=== PATIENT | male | born 1975 | race Caucasian/White ===

== ENCOUNTER 2019-04-10 16:55 | Emergency (ER) | payer MEDICAID, SELFPAY ==
[2019-04-10 16:56] VITALS: BP 146/81; PULSE 125; RESP 18; TEMP 36.6; O2SAT 97; BMI 33.6
--- NOTE | 2019-04-10 17:10 | ED.DCSUM_ITS ---
- ER Visit Summary Date of Service: 04/10/19 Chief Complaint: Hallucinations, paranoid behavior History of Present Illness: The patient is a 43 M presenting per EMS for hallucinations. Police were called due to concern for patient's safety. He was found in poor living conditions. There were holes in the zhang. Patient stated that there are people in his zhang and he has been hearing people in his house. He denies suicidal or homicidal ideation. Admits to methamphetamine use today. Physical Examination: Vitals are stable. Patient is afebrile. Alert no acute distress. HEENT exam is unremarkable. Neck is supple. Lungs are clear and equal bilaterally. Heart is regular and tachycardic Abdomen is soft nontender nondistended. Extremities are unremarkable. Skin is warm and dry. No focal neurologic deficit. Paranoia, pressured speech Remainder of exam is unremarkable. Emergency Department Course and Treatment: CBC, chemistries unremarkable. Alcohol is negative. Patient's arrived to the ED. She also states that there have been people in their house. It is unclear if this is a shared delusion or if other people have actually been breaking into their house. She states this has been ongoing for 3 years. Patient and state there is no change in his symptoms today. He denies suicidal thoughts or homicidal ideation. Patient was seen by social work in the ED. She discussed with crisis and they are comfortable that the patient is not a threat to himself or others at this time and he does not qualify for inpatient treatment. They set him up for counseling appointment tomorrow. Advised signs and symptoms for which to return to the ED. Disposition: Discharge home Impression: Paranoid behavior This note was generated with [employer] dictation software. It may contain incorrect words, spelling, and punctuation that were not noted in review of the chart prior to signing ED Disposition - Plan for ED Patient: Instructions: Understanding Methamphetamine Abuse and Addiction Referrals: Counseling,Center [GROUP OF PHYSICIANS] - Kerry Salter NP-C [Primary Care Provider] -
[2019-04-10 17:34] LABS: Absolute Lymphocyte Count 0.95 X10^3/uL (0.83-4.51); Absolute Neutrophil Count 6.4 X10^3/uL (2.0-7.7); Basophil# 0.04 X10^3/uL; Basophil% 0.5 % (0-1); Eosinophil# 0.27 X10^3/uL; Eosinophils% 3.2 % (0-5); Hemoglobin 12.3 g/dL (13.0-16.5); Lymphocyte # 0.95 X10^3/ul (4.0); Lymphocyte % 11.2 % (19-41); Mean Corp Hgb Conc 33.2 g/dL (32-36); Mean Corpuscular Hgb 28.3 pg (27.0-32.0); Mean Corpuscular Volume 85.1 fL (80-94); Mean Platelet Vol. 10.9 fl (6.2-12.0); Monocyte# 0.81 X10^3/uL; Monocyte% 9.5 % (0-10); NRBC Flagged by Analyzer 0 % (0-5); Neutrophil # 6.41 X10^3/uL (2.7-7.7); Neutrophil % 75.2 % (47-70); POSITIVE COUNT YES; RBC Distribution Width CV 11.6 % (11.6-14.6); RBC Distribution Width SD 35.8 fl (35.1-43.9); Red Blood Count 4.35 M/mm3 (4.6-6.2); White Blood Count 8.5 K/mm3 (4.4-11.0)
[2019-04-10 17:44] LABS: Differential Indicated SCAN CRITERIA MET
[2019-04-10 17:48] LABS: Anion Gap 6 (5-15); BUN 12 mg/dL (7-18); BUN/Creat Ratio 10.6 RATIO (10-20); Calcium,Total 8.8 mg/dL (8.5-10.1); Chloride 111 mmol/L (98-107); Creatinine, Serum 1.13 mg/dL (0.70-1.30); EST Glomerular Filtration Rate 76 mL/min (>60); Est Glom Filt Rate - Afr Amer 91 mL/min (>60); Estimated Creatinine Clearance 96.24 ml/min; Glucose 112 mg/dL (74-106); Potassium 3.5 mmol/L (3.5-5.1); Sodium Level 144 mmol/L (136-145)
[2019-04-10 18:08] LABS: Alcohol, Blood (Medical)-Serum < 3.0 mg/dL
[2019-04-10 18:11] LABS: Platelet Estimate ADEQUATE (ADEQ)
[2019-04-10 18:12] LABS: Red Cell Morphology NORM C+C NORMAL (NORM C&C)
--- NOTE | 2019-04-10 18:14 | CM.ED ---
Social Work Referral: Mental Health Informant: Dr. Francois Chief Complaint: there is a man in my house. Marital/Social History: In a dating relationship with Pat Abdi for the past 5 years. Patient is to another women but has not gotten the paperwork in. Patient stating to be working towards a divorce. Living Situation: Lives with significant other, Pat in Pat's home. Support/Resources: Pat is patient main support. History: None Education/Employment History: Unemployed. Patient stating to have stopped working due to the voices in the house. Patient stating to need to stay home to protect Pat. Mental Health Treatment/History: Denies any mental health history. Abuse Issues: Denies Substance Abuse Hx: States to have been sober for the past 3 years but to have used Meth today. Patient stating to smoke THC daily more then cigarettes. Mental Status Exam: A&Ox3 Appearance/General Behavior: Clean. Agitated. Mood/Affect: Frustrated with police for bringing patient to the ED and frustrated with the man in the house. Communication Pattern: Responds to questions. Thought Process: Stating to know there is someone in the house. Patient stating to have been dealing with this for the past 3 years. Risk to Self/Others: Patient denies any SI or HI. Patient denies any history of suicidal or homicidal thoughts. Assessment: Met with patient and patient significant other in room. Introduced self as well as manager social work role. Patient wanting significant other to stay in room during conversation. Patient and patient significant other both stating to hear voices in the home for the pat 3 years. Patient significant other, Pat stating to have a diagnosis of Bi-polar. Pat stating that the police think that Pat is making the voices and leaving evidence. Pat stating to clean a room in their home and to come back and it is always messed up again. Pat stating I know the voices are real, I am a witch. Patient stating to know the voices are there as well. Patient stating to have contacted the police on multiple occasions to come and look through the home. Patient stating that the police does not see the man. Patient stating to feel safe at home when Pat is there and that Pat and the patient do not go anywhere without each other. Patient denies any history of counseling and is open to meeting with a counselor. This manager social work encouraging patient to meet with a counselor as this could help patient work through what has been going on for patient over the past 3 years. Pat stating I will make sure he gets there. Patient tearful throughout conversation. Collaborating with Dr. Francois and radiation therapy technologist kiln worker, Marry. Plan is for patient to discharge to home with a crisis follow up appointment for tomorrow as the voices and seeing the man appear to be an on going thing and not an acute problem. Crisis appointment set up for 04/11/19 @ 11:00am. Patient is agreeable to this time and date. Patient provided with appointment reminder as well as recourse for other mental health supports/options, crisis hotline, and information on [facility] for substance abuse assistance. PLAN: Discharge to home with significant other with crisis follow-up. Faviola OG, MIGUEL ANGEL
--- NOTE | 2019-04-10 18:29 | ED.DEP ---
ED Disposition - Plan for ED Patient: Instructions: Understanding Methamphetamine Abuse and Addiction Referrals: Kerry Salter, PEDRO-C [Primary Care Provider] - Counseling,Center [GROUP OF PHYSICIANS] -
[2019-04-10 19:04] VITALS: RESP 18
== END 2019-04-10 19:05 | disposition home or self-care (01) ==
LOC: ED 18:26
PROVIDERS: Emergency Provider Emergency Medicine; Family Provider Nurse Practitioner Family; PCP Nurse Practitioner Family
DX: F22 Delusional disorders (principal); Z72.0 Tobacco use
CPT/HCPCS: 80048; 80320; 85025; 99284; G0480

== ENCOUNTER → 2019-05-10 16:55 | Outpatient (CLI) | payer MEDICAID, SELFPAY ==
[2019-04-10 16:56] VITALS: BMI 33.6
--- NOTE | 2019-05-10 17:52 | MRI_ITS ---
STUDY: MRI BRAIN WITH AND WITHOUT CONTRAST REASON FOR EXAM: Male, 43 years old. Visual and auditory hallucinations. TECHNIQUE: Standardized multiplanar fat and water weighted pulse sequences were obtained. 23ML DOTAREM IV was administered for the contrast portion of the examination. COMPARISON: CT head without contrast 01/28/2016. FINDINGS: No restricted diffusion to suspect acute or subacute ischemic infarct. Normal size of the ventricles and extra-axial spaces for the patient''s age. Few small subcortical white matter T2 FLAIR hyperintensity foci in both cerebral hemispheres are nonspecific. No mass effects and no midline shift. Normal bilateral basal ganglia. Normal thalami. There is no extra-axial fluid accumulation. Normal flow voids within the major intracranial circulation suggesting patency by spin echo criteria. Normal venous enhancement. There is no enhancing intra-axial or extra-axial abnormality. Normal sella turcica, pituitary gland, infundibular stalk, optic chiasm and hypothalamus. Normal tectal plate and pineal gland. Normal midbrain, eveline and medulla. Normal cerebellum. Normal basal cisterns. Normal bilateral temporal bones. Normal bilateral internal auditory canals. No demonstrated orbital abnormality, within the constraints of a routine brain study. Normal visualized paranasal sinuses. Normal calvarium and skull base. Normal visualized soft tissue structures. Normal visualized upper cervical spine. MRI/Brain W/WO Contrast IMPRESSION: 1. No MRI evidence of acute or subacute ischemic infarct, intracranial mass or acute intracranial abnormality. 2. No abnormal enhancing lesions extra-axially and intraaxially. 3. Nonspecific subcortical white matter T2 FLAIR hyperintensity foci in both cerebral hemispheres. Possibilities include migraine related changes, reversible cerebrovascular constrictive syndrome, microvascular disease and vasculitis. Electronically Signed: Alonzo Deleon MD at 16:18 EST , Service support ,
== END ==
PROVIDERS: Family Provider Nurse Practitioner Family; PCP Nurse Practitioner Family; Referring Provider Nurse Practitioner Family; Visit Provider Nurse Practitioner Family
DX: G23.8 Other specified degenerative diseases of basal ganglia (principal); R44.3 Hallucinations, unspecified
CPT/HCPCS: 70553; A9575

== ENCOUNTER 2019-11-10 09:57 | Emergency (ER) | payer MEDICAID, SELFPAY ==
[2019-11-10 09:58] VITALS: BP 135/90; PULSE 106; RESP 17; TEMP 36.1; O2SAT 97; BMI 37.2
--- NOTE | 2019-11-10 10:10 | CT_ITS ---
STUDY: CT ABDOMEN AND PELVIS WITHOUT CONTRAST REASON FOR EXAM: Male, 43 years old. LOW ABD PAIN X 1 MON, GROIN PAIN, CHANGE IN ERECTION, HTN, GERD RADIATION DOSAGE (If Supplied By Facility): CTDIvol = ( 22.87 ) mGy, DLP = ( 1285.79 ) mGycm TECHNIQUE: Transaxial images were obtained from the dome of the diaphragm to the symphysis pubis without oral contrast, and without intravenous contrast. Sagittal and coronal images were reconstructed. Individualized dose optimization techniques were used for this CT. COMPARISON: None. FINDINGS: The visualized lung bases are unremarkable. The visualized portions of the heart are within normal limits. Normal liver. The gallbladder is contracted. Normal spleen. Normal pancreas. Normal bilateral adrenal glands. Normal right kidney. Normal left kidney. No stones or hydronephrosis. Normal visualized stomach. Normal small intestine. There are multiple colonic diverticula consistent with diverticulosis. The appendix is visualized and appears normal. There is atherosclerotic calcification of the abdominal aorta, without a demonstrated aneurysm. Normal inferior vena cava. Normal retroperitoneum. Normal urinary bladder. There are prostatic calcifications. There is no free fluid in the abdomen or pelvis. There are mildly enlarged inguinal lymph nodes. There are diffuse degenerative changes of the visualized lumbar spine. CT/Abdomen/Pelvis without Cont IMPRESSION: Colonic diverticulosis. No obstruction or abscess. Contracted gallbladder. No biliary dilatation. Electronically Signed: Herberth Foy MD at 11:51 EDT , Service support ,
--- NOTE | 2019-11-10 10:16 | ED.DCSUM_ITS ---
- ER Visit Summary Date of Service: 11/10/19 Chief Complaint: [Abdominal pain] History of Present Illness: The patient is a 43 M presents to the emergency benjamín pain that has had off and on for about a month. Patient states that it was not severe until a couple of days ago. Patient states that the pain is lower abdomen and radiates to the testicles. He has had nausea. Has had intermittent vomiting. He denies any fevers. He denies urinary symptoms. He denies any diarrhea. He has no significant medical history other than some hypertension and GERD. No prior surgical history.] Physical Examination: [HEENT-PERRLA, EOMI. Cranial nerves II through XII grossly intact. TMs clear. Mucous membranes moist. No adenopathy. Cardiovascular-regular rate and rhythm without murmur or ectopy Lungs-clear to auscultation, chest wall stable without crepitus or subcu emphysema Abdomen-normoactive bowel sounds, soft. Patient has some mild diffuse tenderness to palpation to the lower abdomen. No rebound, rigidity, or peritoneal signs noted. No obvious hernias noted. exam-uncircumcised male. No significant tenderness to the testicles or the epididymides bilaterally. Normal cremasteric reflex. No hernias palpated. Extremities-intact ?4, normal range of motion, normal pulses, atraumatic] Test Results: [CBC with differential was normal. Chemistries unremarkable. Urinalysis unremarkable. CT flank showed diverticulosis otherwise nothing ac rogelio. Patient also had some calcifications within the prostate.] Emergency Department Course and Treatment: [Patient did have some minimal discomfort over the epididymis especially on the right. He states he has had similar pain in the past. I will treat him with antibiotics for a week to see if that does not resolve his issue. Patient also will be referred to urology for follow-up.] Treatment Plan: [Patient will be treated with Bactrim for a week] Disposition: [Discharged home in stable condition. Patient advised to return if worsening pain, fever, vomiting, or condition should worsen anyway.] Impression: [Abdominal pain-etiology uncertain] This note was generated with [employer] software. It may contain incorrect words, spelling, and punctuation that were not noted in review of the chart prior to signing ED Disposition - Plan for ED Patient: Referrals: Gaetano,Kerry, LOAN PROCESSING SUPERVISOR-C [Primary Care Provider] -
[2019-11-10 10:18] LABS: Mucous, Urine 0 SEEN /hpf (<or=2+); Red Blood Cells-Urine 0 SEEN /hpf (0-5); Squamous Epithelial Cells - UA 0 SEEN /hpf (0-5)
[2019-11-10] MEDS: Ondansetron 4 MG/2 ML Vial IV (10:34)
[2019-11-10] MEDS: Ketorolac 30 MG/ML Syringe IV (10:34)
[2019-11-10 10:40] LABS: Absolute Lymphocyte Count 1.42 X10^3/uL (0.83-4.51); Absolute Neutrophil Count 4.4 X10^3/uL (2.0-7.7); Basophil# 0.04 X10^3/uL; Basophil% 0.6 % (0-1); Eosinophils% 4.2 % (0-5); Hematocrit 39.1 % (40-54); Hemoglobin 12.7 g/dL (13.0-16.5); Lymphocyte # 1.42 X10^3/ul (4.0); Lymphocyte % 20.1 % (19-41); Mean Corp Hgb Conc 32.5 g/dL (32-36); Mean Corpuscular Hgb 27.7 pg (27.0-32.0); Mean Corpuscular Volume 85.2 fL (80-94); Mean Platelet Vol. 11.1 fl (6.2-12.0); Monocyte# 0.87 X10^3/uL; Monocyte% 12.3 % (0-10); NRBC Flagged by Analyzer 0 % (0-5); Neutrophil # 4.42 X10^3/uL (2.7-7.7); Neutrophil % 62.5 % (47-70); Platelet Count 235 K/mm3 (150-450); RBC Distribution Width CV 15.1 % (11.6-14.6); Red Blood Count 4.59 M/mm3 (4.6-6.2); White Blood Count 7.1 K/mm3 (4.4-11.0)
[2019-11-10] MEDS: 0.9% Normal Saline 1,000 ML 125 ML IV (10:41)
[2019-11-10 10:46] LABS: Color, Urine Yellow (Yellow); Glucose, Dipstick Normal (Normal); Ketone-Dipstick 5 mg/dl (Negative); Leukocyte Esterase-Dipstick 25 /ul (Negative); Nitrite-Dipstick Negative (Negative); Occult Blood-Urine Negative /ul (Negative); Protein-Dipstick 15 mg/dl (Negative); Specific Gravity, Urine 1.015 (1.002-1.030); Urine Bilirubin Dipstick 1 mg/dL (Negative); Urine Clarity Clear (Clear); Urine Urobilinogen 1 mg/dl (Normal)
[2019-11-10 10:54] LABS: White Blood Cells 0-5 SEEN /hpf (0-5)
[2019-11-10 10:55] LABS: Bacteria 1+ /hpf (None Seen)
[2019-11-10 11:05] LABS: Anion Gap 5 (5-15); BUN 19 mg/dL (7-18); BUN/Creat Ratio 18.6 RATIO (10-20); Calcium,Total 8.5 mg/dL (8.5-10.1); Chloride 107 mmol/L (98-107); Creatinine, Serum 1.02 mg/dL (0.70-1.30); EST Glomerular Filtration Rate 85 mL/min (>60); Est Glom Filt Rate - Afr Amer 103 mL/min (>60); Estimated Creatinine Clearance 103.55 ml/min; Glucose 164 mg/dL (74-106); Potassium 4.5 mmol/L (3.5-5.1); Sodium Level 138 mmol/L (136-145)
--- NOTE | 2019-11-10 11:35 | ED.RN ---
PT IS CURRENTLY NOT REQUESTING PAIN MEDICINES.
--- NOTE | 2019-11-10 11:56 | ED.DEP ---
ED Disposition - Plan for ED Patient: Instructions: ED Unknown Causes of Abdominal Pain Male Prescriptions: Smz/Tmp Ds [Bactrim Ds] 1 tab PO BID #14 tab Prescription Printed Referrals: Kerry Salter NP-C [Primary Care Provider] - Luis Mireles MD [STAFF PHYSICIAN] - 5-7 Days
[2019-11-10 12:07] VITALS: BP 116/77; PULSE 74; RESP 16; O2SAT 96
--- NOTE | 2019-11-10 12:08 | ED.RN ---
REVIEWED D/C INSTRUCTIONS, FOLLOW UP CARE, PRESCRIPTION, AND S/S THAT WOULD WARRANT A RETURN TO THE ED WITH PT. PT VERBALIZED AN UNDERSTANDING AND DENIES FURTHER QUESTIONS FOR THIS RN. PT SKIN P/W/D, RESP EVEN AND UNLABORED, PT A&O X 3, NO DISTRESS NOTED. PT AMBULATED OUT OF ED, GAIT STEADY.
== END 2019-11-10 12:10 | disposition home or self-care (01) ==
LOC: ED 11:06
PROVIDERS: Emergency Provider Emergency Medicine; PCP Nurse Practitioner Family
DX: R10.30 Lower abdominal pain, unspecified (principal); F17.200 Nicotine dependence, unspecified, uncomplicated; I10 Essential (primary) hypertension; K21.9 Gastro-esophageal reflux disease without esophagitis
CPT/HCPCS: 74176; 80048; 81001; 85025; 96361; 96374; 96375; 99285; J7030; A4216; J2405

== ENCOUNTER 2019-12-05 10:44 | Emergency (ER) | payer MEDICAID, SELFPAY ==
[2019-12-05 10:45] VITALS: BP 141/91; PULSE 945; RESP 19; TEMP 36.8; O2SAT 97; BMI 39.3
--- NOTE | 2019-12-05 11:14 | EKG12_ITS ---
Test Reason : SOB Blood Pressure : / mmHG Vent. Rate : 081 BPM Atrial Rate : 081 BPM P-R Int : 146 ms QRS Dur : 106 ms QT Int : 386 ms P-R-T Axes : 054 005 146 degrees QTc Int : 448 ms Normal sinus rhythm Left ventricular hypertrophy with repolarization abnormality Abnormal ECG Confirmed by VELASQUEZ MOY ([id number]), assistant film editor LONNY HERCULES ([id number]) on 12/06/2019 11:57:24 AM Referred By: BRENDEN Confirmed By:VELASQUEZ MOY
--- NOTE | 2019-12-05 11:21 | ED.VIS.GEN ---
History of Present Illness Chief Complaint: Shortness of Breath Narrative: Patient is a 44-year-old male with a past medical history of hypertension who presents to the emergency department for shortness of breath and generalized swelling. States that this all occurred over the past 3 days. His swelling has been getting worse. Has not tried anything for this. Denies ever having these symptoms before in the past. The swelling he feels like is over his upper extremities, lower extremities. He denies any associated chest pain with the shortness of breath. He does not know any aggravating factors. Exertion does not aggravate this. He denies any history of heart attacks, strokes or DVT/PE. He believes that he has been having a cold. Denies any fevers or chills. Has had a mild nonproductive cough. Is a current everyday smoker. Former IV drug abuser. Quit drinking 6 years ago. States that he has had liver issues before in the past. Denying any urinary symptoms except frequency. He denies any diarrhea or constipation. No abdominal pain. No pain in his calves. No recent prolonged period of immobilization. No recent surgeries. Past Medical History - Allergies and Home Meds Allergies/Adverse Reactions: Allergies promethazine [From Phenergan] Allergy (Verified 12/05/19 10:44) Rash Penicillins Adverse Reaction (Verified 12/05/19 10:44) Upset Stomach Primary Care Physician: Virgilio Clayton MD [NON-STAFF] - 1 Day Kerry Salter NP-C [Primary Care Provider] - Smoking Status: Light Smoker (<10/day) Review of Systems All systems negative except as indicated General: Denies: Chills, Fever, Sweats Eyes: Denies: Visual changes - bilaterally, Diplopia ENT: Denies: Rhinorrhea, Sore throat Cardiovascular: Denies: Chest pain, Palpitations Respiratory: Reports: Dyspnea, Cough. Denies: Sputum, Dyspnea on exertion, Orthopnea Gastrointestinal: Denies: Abdominal pain, Nausea, Vomiting, Diarrhea, Melena, Hematochezia Musculoskeletal: Reports: Swelling - Diffuse, nonspecific. Denies: Back pain, Extremity Pain Skin: Denies: Rash, Wounds Neurological: Denies: Headache, Weakness, Numbness Endocrine: Reports: Polyuria Allergy: Denies: Swelling of the mouth, Swelling of the tongue Physical Exam Vital Signs/Narrative: Vital Signs Temp Pulse Resp BP Pulse Ox 12/05/19 10:45 98.3 F 945 H 19 H 141/91 H 97 General: Well nourished, Well developed, No Acute Distress Head: Normocephalic, Atraumatic Eyes: Perrl, EOMI ENT: Moist mucous membranes, No rhinorrhea Neck: Supple, Nontender Cardiovascular: Regular rate, Regular rhythm, No murmurs Respiratory: No distress, CTA bilaterally, Chest nontender Abdomen: Soft, Nontender, Nondistended, Normal bowel sounds Back: Nontender, Normal Inspection Extremities: Nontender, Edema - Patient does not have any pitting edema noted on physical exam. No significant swelling appreciated. Does feel like his skin is tight although I do not see any tight compartments. Skin: Normal color, No rash Neurological: Alert, Oriented x3, Cranial nerves II-XII grossly intact, Normal Strength, Normal Sensation Psychological: Normal affect, Normal Mood Diagnostic/Tx/Re-eval - EKG Initial EKG Interpretation: Sinus Rhythm - EKG has a rate of 81 bpm and normal sinus rhythm. Normal intervals. Normal axis. No ST elevations or depressions appreciated. No T wave abnormalities. No prior EKG for comparison., No Acute Injury Pattern Prior: No Prior - Medical Decision Making Patient presents to the emerge department for diffuse swelling. I did not appreciate any significant edema with the patient. He was having some dyspnea. Chest x-ray, EKG and cardiac work-up performed which did not reveal any significant acute abnormality. X-rays not show any evidence of significant pulmonary vascular congestion or pleural effusions. No evidence of consolidation. His liver enzymes are elevated. I did discuss this with the patient he states that they have been in the 500s before. Upon reviewing his medical record he does have hepatitis. His albumin is low which I believe is continue to a sensation of the edema. He does not currently follow with a GI doctor and I will make a referral for 1. He needs to make an appointment as soon as possible. Have a CT scan of his abdomen which was performed less than 1 month ago. He is not having any abdominal pain I do not think he needs a repeat scan at this time. Otherwise patient does feel comfortable going home at this time. Warning signs and symptoms for which to return to the emerge department were reviewed with him developing any worsening shortness of breath or developing any systemic symptoms including any fever/chills. He understands and is agreeable with this plan. ED Disposition - Plan for ED Patient: Disposition: Home or Assisted Living Diagnosis: Transaminitis, Hypoalbuminemia, Dyspnea Instructions: Common Tests for Liver Disease, ED Dyspnea Referrals: Kerry Salter NP-C [Primary Care Provider] - Virgilio Clayton MD [NON-STAFF] - 1 Day
[2019-12-05 11:24] VITALS: O2SAT 100
--- NOTE | 2019-12-05 11:30 | RAD_ITS ---
STUDY: X-RAY CHEST REASON FOR EXAM: Male, 44 years old. SOB WITH SWELLING TECHNIQUE: PA and lateral views of the chest. COMPARISON: Comparison is made with prior study dated January 15, 2016. FINDINGS: EKG electrodes are seen. The lungs are clear and expanded. There is no demonstrated pleural abnormality. Normal size heart. Normal mediastinum and brent. Normal visualized pulmonary arteries. Normal visualized aortic arch and descending thoracic aorta. There are diffuse degenerative changes of the visualized thoracic spine. Normal visualized ribs, clavicles, and shoulders. There is no demonstrated abnormality of the visualized soft tissue structures of the upper abdomen. RAD/Chest PA and Lateral IMPRESSION: No acute abnormality is seen. Electronically Signed: Umer Davis, at 12:16 EDT , Service support ,
[2019-12-05 11:37] LABS: Absolute Neutrophil Count 4.7 X10^3/uL (2.0-7.7); Basophil# 0.03 X10^3/uL; Basophil% 0.4 % (0-1); Eosinophil# 0.41 X10^3/uL; Eosinophils% 5.9 % (0-5); Hematocrit 36.2 % (40-54); Hemoglobin 11.4 g/dL (13.0-16.5); Lymphocyte % 12.9 % (19-41); Mean Corp Hgb Conc 31.5 g/dL (32-36); Mean Corpuscular Hgb 28.5 pg (27.0-32.0); Mean Corpuscular Volume 90.5 fL (80-94); Mean Platelet Vol. 10.2 fl (6.2-12.0); Monocyte# 0.88 X10^3/uL; Monocyte% 12.7 % (0-10); NRBC Flagged by Analyzer 0 % (0-5); Neutrophil # 4.69 X10^3/uL (2.7-7.7); Neutrophil % 67.5 % (47-70); Platelet Count 219 K/mm3 (150-450); RBC Distribution Width CV 13.1 % (11.6-14.6); RBC Distribution Width SD 42.7 fl (35.1-43.9)
[2019-12-05 11:42] LABS: Bacteria 0 SEEN /hpf (None Seen); Mucous, Urine 0 SEEN /hpf (<or=2+); Red Blood Cells-Urine 0 SEEN /hpf (0-5); White Blood Cells 0 SEEN /hpf (0-5)
[2019-12-05 11:49] LABS: AST(SGOT) 287 U/L (15-37); Alanine Aminotransfer ALT/SGPT 440 U/L (16-61); Albumin, Serum 2.6 g/dL (3.2-5.0); Alkaline Phosphatase 108 U/L (45-117); Anion Gap 3 (5-15); BUN 17 mg/dL (7-18); BUN/Creat Ratio 18.2 RATIO (10-20); Bilirubin, Direct 0.33 mg/dL (0.00-0.30); Calcium,Total 7.7 mg/dL (8.5-10.1); Chloride 109 mmol/L (98-107); Creatinine, Serum 0.94 mg/dL (0.70-1.30); EST Glomerular Filtration Rate 94 mL/min (>60); Est Glom Filt Rate - Afr Amer 113 mL/min (>60); Estimated Creatinine Clearance 111.22 ml/min; Globulin 4.3 g/dL (2.2-4.2); Glucose 170 mg/dL (74-106); Magnesium 1.8 mg/dL (1.6-2.6); Potassium 4.2 mmol/L (3.5-5.1); Protein, Total 6.9 g/dL (6.4-8.2); Sodium Level 137 mmol/L (136-145)
[2019-12-05 11:50] LABS: Color, Urine Yellow (Yellow); Glucose, Dipstick Normal (Normal); Ketone-Dipstick Negative (Negative); Leukocyte Esterase-Dipstick Negative /ul (Negative); Nitrite-Dipstick Negative (Negative); Occult Blood-Urine Negative /ul (Negative); Protein-Dipstick Negative (Negative); Urine Bilirubin Dipstick Negative (Negative); Urine Clarity Sl. Cloudy (Clear); Urine Urobilinogen Normal (Normal)
[2019-12-05 11:57] LABS: Squamous Epithelial Cells - UA 0-5 SEEN /hpf (0-5)
[2019-12-05 13:12] VITALS: BP 136/102; PULSE 80; RESP 16; O2SAT 97
[2019-12-05 13:52] VITALS: BP 136/102; PULSE 97; RESP 15; O2SAT 97
[2019-12-05 14:22] LABS: BNP,B-Type NATRIURETIC PEPTIDE 159.7 pg/mL (0-100)
== END 2019-12-05 13:52 | disposition home or self-care (01) ==
PROVIDERS: Emergency Provider Emergency Medicine; PCP Nurse Practitioner Family
DX: R74.0 Nonspecific elevation of levels of transaminase and lactic acid dehydrogenase [LDH] (principal); E88.09 Other disorders of plasma-protein metabolism, not elsewhere classified; R06.02 Shortness of breath; I10 Essential (primary) hypertension; F17.200 Nicotine dependence, unspecified, uncomplicated
CPT/HCPCS: 71046; 80048; 80076; 81001; 83735; 83880; 84484; 85025; 93005; 99283; A4216

== ENCOUNTER 2020-08-12 09:58 | Observation (INO) | payer MEDICAID, SELFPAY ==
[2020-08-12] VITALS (15 sets, daily range): BP systolic 122–158; BP diastolic 72–107; PULSE 67–108; RESP 12–22; TEMP 36.4–37.1; O2SAT 97–100; BMI 37.3; BMI 37.6; BMI 37.7
--- NOTE | 2020-08-12 10:19 | EKG12_ITS ---
Test Reason : SOB Blood Pressure : / mmHG Vent. Rate : 102 BPM Atrial Rate : 102 BPM P-R Int : 144 ms QRS Dur : 166 ms QT Int : 404 ms P-R-T Axes : 061 070 230 degrees QTc Int : 526 ms Sinus tachycardia Left bundle branch block Abnormal ECG Confirmed by [facility] CHICAS, LILY ([id number]), film editor supervisor LONNY HERCULES ([id number]) on 08/18/2020 10:24:28 A M Referred By: /BB Confirmed By:NICKO BENTLEY MD
--- NOTE | 2020-08-12 10:20 | ED.DCSUM_ITS ---
- ER Visit Summary Date of Service: 08/12/20 Chief Complaint: Chest pain, shortness of breath History of Present Illness: The patient is a 44 M presenting with intermittent chest pain and shortness of breath which has been ongoing for the past 2 days. He complains of left-sided chest pain. He states this is occasionally worse when he takes a deep breath. He has had a mild cough. Denies fever. He woke up this morning he has swelling both eyelids. Denies any new medications, foods, pets, detergents. Denies known exposure to Covid. Denies other complaints. Physical Examination: Vitals are stable. Patient is afebrile. Alert no acute distress. HEENT exam: swelling bilateral upper eyelids. Neck is supple. Lungs are clear and equal bilaterally. Heart is regular rate and rhythm. Abdomen is soft nontender nondistended. Extremities left forearm erythema Skin is warm and dry. No focal neurologic deficit. Remainder of exam is unremarkable. Emergency Department Course and Treatment: EKG is sinus tachycardia rate of 102 with left bundle branch block. CBC normal except hemoglobin 11.8. Chemistries normal except potassium 3.3, glucose 177. Troponin 0.03. D-dimer elevated 1.09. Covid is negative. Patient was given aspirin on arrival. Chest x-ray read by myself and radiology shows poor inspiration with some bibasilar atelectasis. Due to elevated D-dimer, CTA chest was obtained and shows No CT evidence of pulmonary embolism. 6 mm noncalcified left lower lobe nodule and follow-up CT is recommended in 6 months document stability. Patient feels very anxious and was given Ativan p.o. Discussed with hospitalist for observation. Disposition: Observation Impression: Chest pain This note was generated with [employer] dictation software. It may contain incorrect words, spelling, and punctuation that were not noted in review of the chart prior to signing ED Disposition - Plan for ED Patient: Referrals: Kerry Salter TRANSCRIBING MACHINE MECHANIC, TRANSCRIBING MACHINE MECHANIC-C [Primary Care Provider] -
[2020-08-12] MEDS: Aspirin 81 MG TAB.CHEW 324 MG PO (11:22)
--- NOTE | 2020-08-12 11:44 | RAD_ITS ---
STUDY: X-RAY CHEST REASON FOR EXAM: Male, 44 years old. chest pain TECHNIQUE: Single AP portable view of the chest. COMPARISON: 12/05/2019 FINDINGS: The lungs are clear and expanded. There is no demonstrated pleural abnormality. There is moderate cardiac enlargement. Normal mediastinum and brent. Normal visualized pulmonary arteries. Normal visualized aortic arch and descending thoracic aorta. Normal visualized thoracic spine. Normal visualized ribs, clavicles, and shoulders. There is no demonstrated abnormality of the visualized soft tissue structures of the upper abdomen. RAD/Chest 1 View (Portable) IMPRESSION: Poor inspiration with some bibasilar atelectasis. Electronically Signed: Scar Moscoso MD at 12:24 EST Tel , Service support ,
[2020-08-12 11:51] LABS: Absolute Lymphocyte Count 1.35 X10^3/uL (0.83-4.51); Absolute Neutrophil Count 6.3 X10^3/uL (2.0-7.7); Basophil# 0.02 X10^3/uL; Basophil% 0.2 % (0-1); Eosinophil# 0.33 X10^3/uL; Eosinophils% 3.7 % (0-5); Hematocrit 36.3 % (40-54); Hemoglobin 11.8 g/dL (13.0-16.5); Lymphocyte # 1.35 X10^3/ul (4.0); Mean Corp Hgb Conc 32.5 g/dL (32-36); Mean Corpuscular Hgb 28.4 pg (27.0-32.0); Mean Corpuscular Volume 87.5 fL (80-94); Mean Platelet Vol. 10.5 fl (6.2-12.0); Monocyte# 1.02 X10^3/uL; Monocyte% 11.3 % (0-10); NRBC Flagged by Analyzer 0 % (0-5); Neutrophil # 6.25 X10^3/uL (2.7-7.7); Neutrophil % 69.5 % (47-70); Platelet Count 260 K/mm3 (150-450); RBC Distribution Width CV 13.2 % (11.6-14.6); RBC Distribution Width SD 41.3 fl (35.1-43.9); Red Blood Count 4.15 M/mm3 (4.6-6.2)
[2020-08-12 12:09] LABS: Anion Gap 6 (5-15); BUN 14 mg/dL (7-18); BUN/Creat Ratio 13.5 RATIO (10-20); Calcium,Total 7.8 mg/dL (8.5-10.1); Chloride 109 mmol/L (98-107); Creatinine, Serum 1.04 mg/dL (0.70-1.30); EST Glomerular Filtration Rate 83 mL/min (>60); Est Glom Filt Rate - Afr Amer 100 mL/min (>60); Estimated Creatinine Clearance 100.52 ml/min; Glucose 177 mg/dL (74-106); Potassium 3.3 mmol/L (3.5-5.1); Sodium Level 140 mmol/L (136-145)
[2020-08-12 12:15] LABS: D-Dimer Quantitative (DVT/PE) 1.09 FEU/ug/m (0.27-0.49)
--- NOTE | 2020-08-12 12:16 | CT_ITS ---
STUDY: CTA CHEST REASON FOR EXAM: Male, 44 years old. elevated d dimer RADIATION DOSAGE (If Supplied By Facility): CTDIvol = ( 15.04 ) mGy, DLP = ( 517.59 ) mGycm TECHNIQUE: The examination was performed with the intravenous administration of IV 100mL Isovue-370. Post-processing of the angiographic images was performed, with multiplanar reformation and 3D reconstruction. Individualized dose optimization techniques were used for this CT. COMPARISON: Chest x-ray earlier today FINDINGS: Normal enhancement of the main pulmonary artery and right and left pulmonary arteries. Normal enhancement of the bilateral peripheral pulmonary arteries. There is no demonstrated pulmonary embolism. Normal thoracic aorta and visualized great vessels. There is no demonstrated aortic dissection. Normal heart and pericardium. Normal mediastinum. Normal hilar regions. Normal visualized trachea and bronchi. The lungs are well expanded. 6 cm noncalcified nodule left lower lobe the lungs on image 96 and follow-up CT is recommended in 6 months document stability. Normal pleura. Normal chest wall structures. Normal osseous structures. Normal visualized upper abdomen. CT/CTA Chest W/WO Contrast IMPRESSION: 1. No CT evidence of pulmonary embolism. 2. 6 mm noncalcified left lower lobe nodule and follow-up CT is recommended in 6 months document stability. Electronically Signed: Scar Moscoso MD at 13:15 EST Tel , Service support ,
[2020-08-12] MEDS: LORazepam 1 MG Tablet PO (13:47)
--- NOTE | 2020-08-12 14:08 | EKG12_ITS ---
Test Reason : CP ADMISSION Blood Pressure : / mmHG Vent. Rate : 099 BPM Atrial Rate : 099 BPM P-R Int : 152 ms QRS Dur : 160 ms QT Int : 410 ms P-R-T Axes : 047 021 180 degrees QTc Int : 526 ms Normal sinus rhythm Left bundle branch block Abnormal ECG Confirmed by DESIRAE CHICAS, TAMMY ([id number]), movie editor LONNY HERCULES ([id number]) on 08/14/2020 11:13:03 AM Referred By: BARNEY Confirmed By:TAMMY MERRILL MD
[2020-08-12 14:27] LABS: Amphetamine Urine VISTA POSITIVE (<1000 ng/mL); Barbiturate Urine VISTA NEGATIVE (< 200 ng/mL); Benzodiazepine Urine VISTA NEGATIVE (< 200 ng/mL); Cocaine Urine VISTA NEGATIVE (< 300 ng/mL); Ecstacy Urine VISTA NEGATIVE (< 500 ng/mL); Methadone Urine VISTA NEGATIVE (< 300 ng/mL); PCP Urine VISTA NEGATIVE (< 25 ng/mL); THC Urine VISTA POSITIVE (< 50 ng/mL); Vista UDS pH Range 5
--- NOTE | 2020-08-12 14:38 | HP.PCM_ITS ---
Problem List (1) Chest pain Status: Acute (2) Diabetes Status: Chronic (3) HTN (hypertension) Status: Chronic (4) Hypokalemia Status: Acute (5) Methamphetamine abuse Status: Chronic (6) IVDU (intravenous drug user) Status: Chronic (7) Tobacco abuse Status: Chronic (8) Tetrahydrocannabinol (THC) dependence Status: Chronic (9) Abscess Status: Acute (10) Obesity (BMI 30-39.9) Status: Chronic (11) GERD (gastroesophageal reflux disease) Status: Chronic (12) Bipolar 1 disorder Status: Chronic History of Present Illness Date of Admission: 08/12/20 Mr. Montiel is a 44 year old WM with a past medical history of hypertension, DM- 2, GERD, bipolar disorder, tobacco abuse, methamphetamine abuse, IV drug use, THC use, and obesity who presented to the emergency department [facility] on 08/12/2020 complaining of chest pain. He reported that chest pain started approximately 2 days ago and it has been associated with shortness of breath and intermittent diaphoresis. He denies any nausea or vomiting or radia tion of his pain. He did state that it feels like his chest is ripping apart anteriorly and taking a deep breath makes it worse. He denies any fevers or chills. He denies any new leg swelling. He reports that his last episode of methamphetamine use was intravenous and was approximately 5 to 7 days prior to admission. He complains of a tender erythematous area on the dorsal lateral aspect of his left forearm that is associated with his last IV drug use. Has no history of coronary disease. He would like to get off of methamphetamines as well is in the process of quitting. The emergency department he was afebrile with mild tachycardia, hypertension and oxygen saturations were 98% on room air. BC shows a mild chronic anemia with a hemoglobin of 11.8. BMP shows mild hypokalemia with a potassium of 3.3, normal BUN and creatinine, blood sugar of 177 and his initial troponin was 0.030. He had an elevated D-dimer at 1.09. His tox screen is a 4 amphetamines and THC. With his elevated D-dimer a CTA of his chest was performed and was negative for aortic dissection or pulmonary embolism but did show a 6 mm noncalcified left lower lobe nodule. Upon review of his EKG and comparison to previous EKG done in December 2019 the patient has a new left bundle branch block. I discussed the case with cardiology given his new left bundle branch block and they will evaluate him and decide the need for urgent versus routine catheterization. He was admitted to PCU for further work- up of his chest pain. [place] department he was given full dose aspirin and 1 mg of p.o. Ativan secondary to anxiety. Past Medical History Past Medical History (Chronic Problems): Chronic Problems Diabetes (Chronic) HTN (hypertension) (Chronic) Methamphetamine abuse (Chronic) IVDU (intravenous drug user) (Chronic) Tobacco abuse (Chronic) Tetrahydrocannabinol (THC) dependence (Chronic) Obesity (BMI 30-39.9) (Chronic) GERD (gastroesophageal reflux disease) (Chronic) Bipolar 1 disorder (Chronic) Allergies promethazine [From Phenergan] Allergy (Verified 08/12/20 10:00) Rash Penicillins Adverse Reaction (Verified 08/12/20 10:00) Upset Stomach Home Medications: Ambulatory Orders Medication Instructions Recorded Amlodipine [Norvasc] 10 mg PO DAILY 08/12/20 Aripiprazole [Abilify] 5 mg PO DAILY 08/12/20 Aspirin [Aspirin, Baby] 81 mg PO DAILY@0800 08/12/20 Multivit-Min/FA/Lycopen/Lutein 1 tab PO DAILY 08/12/20 [Centrum Silver Men Tablet] Omeprazole [Prilosec] 20 mg PO DAILY 08/12/20 metFORMIN HCl [Glucophage] 1,000 mg PO BIDCM 08/12/20 Surgical History: noncontributory Psychiatric History: Anxiety, Bipolar Lives: With Family Smoking Status: Former smoker Tobacco Use: Cigarettes - Quit 3 weeks ago Alcohol: Rare Drugs: Marijuana, - - Methamphetamines - *Family History Maternal History Items: Unknown Paternal History Items: Unknown Review of Systems Constitutional: Denies: Anorexia, Chills, Fever, Night Sweats, Malaise, Weakness, Weight Change, Fatigue Eyes: Reports: Eyelid Inflammation, - - Eyelid erythema and edema right greater than left. Denies: Blurred vision, Cataracts, Conjunctivae Inflammation, Double vision, Drainage, Pain, Redness, Vision Change HEENT: Reports: Eye Pain - Eyelid. Denies: Difficulty Hearing, Difficulty Swallowing, Dysphasia, Ear Pain, Head Aches, Nasal bleeding, Nasal Congestion, Post Nasal Drip, Sinus Congestion, Sinus Drainage, Sore Throat, Visual Changes Cardiovascular: Reports: Chest Pain. Denies: Claudication, Chest Pressure, Chest Tightness, Edema, Heaviness, Light Headedness, Orthopnea, Palpitations, Paroxysmal Noc. Dyspnea, Syncope Respiratory: Reports: Pleuritic Pain, Shortness of Breath, Shortness of breath at rest, Shortness of breath upon exertion. Denies: Cough, Sputum production, Wheezing Gastrointestinal: Denies: Abdominal Pain, Constipation, Diarrhea, Dyspepsia, Hematemesis, Hematochezia, Nausea, Melena, Vomiting Genitourinary: Denies: Dysuria, Hematuria, Incontinence, Retention Musculoskeletal: Denies: Back Pain, Joint Pain, Joint stiffness, Joint swelling, Joint Tenderness, Muscle pain, Neck Pain Skin: Reports: Lesions - Posterior left forearm and left antecubital space. Denies: Dryness, Jaundice, Pruritis, Rash, Skin Changes, Wounds Neurological: Denies: Balance problems, Blurred vision, Double vision, Change in Speech, Slurred speech, Confusion, Difficulty swallowing, Focal weakness, Headaches, Incoordination, Numbness, Tingling, Tremor, Seizures Psychiatric: Reports: Anxiety, Depression Endocrine: Denies: Change in Body Habitus, Heat/ Cold Intolerance, Polydipsia, Polyuria Hematologic/ Lymphatic: Denies: Adenopathy, Anemia, Easy Bruising, Easy Bleeding, Petechiae, Purpura VTE Information - Inpt Only VTE Present on Admission: No VTE Mechan Device Prophylaxis: SCD's VTE Pharm Prophylaxis ordered?: Yes Patient Problems: Active and Suspected Problems Chest pain (Acute) Hypokalemia (Acute) Abscess (Acute) - Physical Exam Vitals/I&O's: Vital Signs Temp Pulse Resp BP Pulse Ox 97.6 F L 98 20 H 143/99 H 98 08/12/20 14:21 08/12/20 14:21 08/12/20 14:21 08/12/20 14:21 08/12/20 14:21 Oxygen Delivery Method Room Air Weight: 125.963 kg Body Mass Index (BMI) 37.6 General: Alert, Oriented x3, Cooperative, No apparent distress, Well developed, Well nourished, - - Middle-aged white male, appears much older than stated age, resting comfortably in bed, sister at bedside, nursing at bedside HEENT: Atraumatic, PERRLA, EOMI, Normocephalic, EAC Clear Oral: Moist Mucosa, No Gingival or Mucosal Lesions/ Ulcerations, - - Poor dentition, no thrush, Mallampati 4 Neck: Supple, No JVD, Negative Carotid Bruits, Negative Hepatojugular Reflux, No Nodes, No Nuchal Rigidity, Trachea Midline, Thyroid Normal Size and Texture, - - short thick neck Lungs: No rhonchi, No wheeze, No rales, Diminished - Diffusely Cardiovascular: Regular rate, Regular Rhythm, Normal S1, Normal S2, No murmurs, No Ectopic Activity, No rub noted, No Gallop Abdomen: Bowel Sounds Present, Soft, Non Tender, Non-Distended, Obese, No hernias noted Extremities: No clubbing, No cyanosis, No edema, Capillary Refill Less than 3 Seconds, Peripheral Pulses Normal Skin: No rashes, No breakdown, - - Fluctuant erythematous area dorsal lateral area left forearm with surrounding induration, area is tender, also a smaller area of induration and 2 track clay left antecubital space with mild surrounding erythema Musculoskeletal: No Tenderness to Palpation of Joints or Extremities, No Muscle Wasting, Arthritic Changes Lymphatic: No Cervical, Supraclavicular, or Inguinal Adenopathy Neurological: Cranial nerves II-XII grossly intact, Deep Tendon Reflexes 2+/4 and Symmetrical, Neuro grossly intact, Motor Exam 5/5 strength throughout, Muscle tone normal, Sensory exam intact to light touch and pain, Coordination normal Psych/Mental Status: Appropriate, - - Falls asleep easily after receiving 1 mg of Ativan in the emergency department Microbiology Past 72 Hours 08/12/20 11:40 Mucosa - Nose SARS-CoV-2 Antigen (Rapid) - Final Laboratory Results 08/12/20 11:40: WBC 9.0, RBC 4.15 L, Hgb 11.8 L, Hct 36.3 L, MCV 87.5, MCH 28.4, MCHC 32.5, RDW Std Deviation 41.3, RDW Coeff of Polly 13.2, Plt Count 260, MPV 10.5, Immature Gran % (Auto) 0.300, Neut % (Auto) 69.5, Lymph % (Auto) 15.0 L, [place] % (Auto) 11.3 H, Eos % (Auto) 3.7, Baso % (Auto) 0.2, Absolute Neuts (auto) 6.3, Absolute Lymphs (auto) 1.35, Nucleated RBC % 0 08/12/20 11:40: D-Dimer Quant (PE/DVT) 1.09 H* 08/12/20 11:40: Sodium 140, Potassium 3.3 L, Chloride 109 H, Carbon Dioxide 25.0, Anion Gap 6, BUN 14, Creatinine 1.04, Estim Creat Clear Calc 100.52, Est GFR (MDRD) Af Amer 100, Est GFR (MDRD) Non-Af 83, BUN/Creatinine Ratio 13.5, Glucose 177 H, Calcium 7.8 L, Troponin I 0.030 08/12/20 13:50: Urine Opiates Screen NEGATIVE, Urine Methadone Screen NEGATIVE, Ur Barbiturates Screen NEGATIVE, Ur Phencyclidine Scrn NEGATIVE, Ur Amphetamines Screen POSITIVE H, U Methamphetamin-MDMA NEGATIVE, U Benzodiazepines Scrn NEGATIVE, Urine Cocaine Screen NEGATIVE, U Cannabinoids Screen POSITIVE H, Ur Drug Screen Comment Current Medications Acetaminophen (Acetaminophen 325 Mg Tablet) 650 mg PO Q6H PRN PRN PRN Reason: Pain Score 1-10/Temp > 100.7 F Al Hydroxide/Mg Hydroxide (Mag Hydrox/Al Hydrox/Simeth 30 Ml Udc) 30 ml PO Q6H PRN PRN PRN Reason: Gastric Burning Albuterol Sulfate (Albuterol 2.5 Mg/3 Ml Vial.Neb.) 2.5 mg INHALATION Q2H PRN PRN PRN Reason: SOB/Wheezing Amlodipine Besylate (Amlodipine 10 Mg Tablet) 10 mg PO DAILY [facility] Aripiprazole (Aripiprazole 5 Mg Tablet) 5 mg PO DAILY [facility] Aspirin (Aspirin E.C. 81 Mg Tablet) 81 mg PO DAILY@0800 [facility] Atorvastatin Calcium (Atorvastatin Calcium 80 Mg Tablet) 80 mg PO QHS [facility] Enoxaparin Sodium (Enoxaparin 40 Mg/0.4 Ml Syringe) 40 mg SC DAILY [facility] Enoxaparin Sodium (Enoxaparin 120 Mg/0.8 Ml Syringe) 120 mg SC Q12 [facility] Influenza Virus Vaccine Quadrival (Influenza Vaccine (6mos+)/Pf 0.5 Ml Syringe) 0.5 ml IM .ONCE ONE Stop: 08/13/20 10:01 Insulin Human Lispro (Insulin Lispro 100 Unit/Ml Insuln.Pen) 0 unit SC ACHS [facility]; Protocol Melatonin (Melatonin 3 Mg Tablet) 3 mg PO QHS PRN PRN PRN Reason: INSOMNIA Metoprolol Tartrate (Metoprolol Tartrate 25 Mg Tablet) 25 mg PO BID [facility] Nitroglycerin (Nitroglycerin (Inpatient Use) 0.4 Mg Tab.Subl) 0.4 mg SL Q5M PRN PRN Reason: CARDIAC/CHEST PAIN Ondansetron HCl (Ondansetron 4 Mg/2 Ml Vial) 4 mg IV Q8H PRN PRN PRN Reason: NAUSEA/VOMITING Pantoprazole Sodium (Pantoprazole Sodium 20 Mg Tablet) 20 mg PO DAILY [facility] Potassium Chloride (Potassium Chloride Oral Tablet 20 Meq) 40 meq PO X1 ONE Stop: 08/12/20 14:27 Senna/Docusate Sodium (Senna/Docusate Sodium 1 Tablet) 2 tablet PO BID PRN PRN PRN Reason: Constipation Sodium Chloride (0.9% Saline Lock 10 Ml Syringe) 10 - 40 ml IV UD PRN PRN Reason: SALINE FLUSH Trimethoprim/Sulfamethoxazole (Smz/Tmp Ds Tablet) 2 tablet PO BID [facility] Assessment/Plan All Active Problems Chest pain (Acute) Hypokalemia (Acute) Abscess (Acute) Acute chest pain with new left bundle branch block -Discussed the case with cardiology and they will be evaluating on whether or not he needs an urgent cath today or routine cath tomorrow morning -N.p.o. after midnight -Cycle troponin -Check a hemoglobin A1c and lipids in the a.m. -Start metoprolol 25 mg twice daily -Start Lipitor 80 mg nightly -Patient was loaded with 325 mg of aspirin in the ED; continue low-dose aspirin daily -Lovenox 125 mg x 1 dose per discussion with cardiology -Cardiac diet -Cardiology consultation--> discussed with Dr. Viera Left forearm abscess secondary to IVDU -Consult general surgery for incision and drainage -Culture contents of abscess -Start Bactrim DS 2 tablets twice daily for 7 to 10 days Hypokalemia -40 mEq of potassium x1 dose -Repeat BMP and check mag level in a.m. DM-2 -Check a.m. hemoglobin A1c -SSI-moderate dose -Hold metformin Hypertension -Continue Norvasc 10 mg daily -Metoprolol 25 mg twice daily GERD -Continue PPI Bipolar disorder -Continue Abilify Methamphetamine IVDU -Patient is currently in the process of trying to quit -Check hepatitis C Ab -check HIV status Tobacco/THC use -Recommend cessation -Patient states it has been at least 2 weeks since his last tobacco use and denies any currently for nicotine patch DVT prophylaxis -Prophylactic Lovenox -SCDs CODE STATUS -Full code Inpatient E&M: 38561 Init Hosp L3
[2020-08-12 15:35] LABS: HIV - WCH Non-Reactive (Nonreactive); Hepatitis C Antibody Non-Reactive (Nonreactive)
[2020-08-12] MEDS: Potassium Chloride Oral Tablet 20 MEQ 40 MEQ PO (16:34)
--- NOTE | 2020-08-12 16:58 | CPS ---
Attempted Bipap with pt. Started on 16/10 and pt stated it was to much pressure so lowered pressure down to 12/8. Pt subsequently could not handle the pressure or mask and wanted it off. Told pt that we can lower the pressure even more and can try again later tonight. Pt agreeable with this.
[2020-08-12 17:11] LABS: Bedside Glucose 118 mg/dL (70-110)
--- NOTE | 2020-08-12 17:11 | CON.PCM_ITS ---
Problem List (1) Chest pain Status: Acute (2) LBBB (left bundle branch block) Status: Acute (3) HTN (hypertension) Status: Chronic (4) Diabetes Status: Chronic (5) IVDU (intravenous drug user) Status: Chronic (6) Methamphetamine abuse Status: Chronic (7) Tetrahydrocannabinol (THC) dependence Status: Chronic (8) Abscess Status: Acute (9) GERD (gastroesophageal reflux disease) Status: Chronic (10) Bipolar 1 disorder Status: Chronic (11) Obesity (BMI 30-39.9) Status: Chronic Reason for Consult Date of Consultation: 08/12/20 History of Present Illness: The patient is a 44 year [id number] white male who is referred for evaluation of chest pain and an abnormal ECG with a left bundle branch block pattern superimposed upon notation of IV drug abuse, methamphetamine abuse, other illicit substance abuse, bipolar disorder, GERD, and obesity. He reported ongoing chest discomfort for approximately 2 days somewhat worse with deep inspiration as well as feeling short of breath/dyspneic. There is been no report of ongoing nausea, emesis, or diaphoresis. There is no report of near syncope or syncope. He underwent evaluation in the emergency department. He had an abnormal D- dimer. A chest x-ray and CT scan were performed. The results are noted below. He was not found to have any great vessel disease. A COVID-19 test was performed which was negative. A urine drug analysis was performed which demonstrated amphetamines and cannabinoids. He did have an ECG. He was found to have a left bundle branch block. In comparison to previous ECG from December 2019 the left bundle branch block is thought to be new as at that time he had sinus rhythm with what was reported as LVH with repolarization variant. He does not recall any other cardiovascular studies. He states that he also awoke with swollen eyelids . He also has what appears to be an area of erythema and potential abscess on his left arm. He was placed in the PCU for further evaluation and care. His troponin I levels have been negative thus far. He is remained in sinus rhythm. His had no new acute symptoms. [] Past Medical History Allergies/Adverse Reactions: Allergies promethazine [From Phenergan] Allergy (Verified 08/12/20 10:00) Rash Penicillins Adverse Reaction (Verified 08/12/20 10:00) Upset Stomach Home Medications: Ambulatory Orders Medication Instructions Recorded Amlodipine [Norvasc] 10 mg PO DAILY 08/12/20 Aripiprazole [Abilify] 5 mg PO DAILY 08/12/20 Aspirin [Aspirin, Baby] 81 mg PO DAILY@0800 08/12/20 Multivit-Min/FA/Lycopen/Lutein 1 tab PO DAILY 08/12/20 [Centrum Silver Men Tablet] Omeprazole [Prilosec] 20 mg PO DAILY 08/12/20 metFORMIN HCl [Glucophage] 1,000 mg PO BIDCM 08/12/20 Past Medical History (Chronic Problems): Chronic Problems Diabetes (Chronic) HTN (hypertension) (Chronic) Methamphetamine abuse (Chronic) IVDU (intravenous drug user) (Chronic) Tobacco abuse (Chronic) Tetrahydrocannabinol (THC) dependence (Chronic) Obesity (BMI 30-39.9) (Chronic) GERD (gastroesophageal reflux disease) (Chronic) Bipolar 1 disorder (Chronic) Surgical History: noncontributory Psychiatric History: Anxiety, Bipolar - *Family History Maternal History Items: Unknown Paternal History Items: Unknown Lives: With Family Smoking Status: Former smoker Tobacco Use: Cigarettes - Quit 3 weeks ago Alcohol: Rare Drugs: Marijuana, - - Methamphetamines Review of Systems - Review of Systems General: Denies: Fever, Night Sweats, Fatigue HEENT: Reports: - - Right eyelid: Appears edematous Cardiovascular: Reports: Chest Discomfort, Shortness of Breath. Denies: Orthopnea, PND, Peripheral Edema, Palpitations, Lightheadedness, Dizziness, Near Syncope, Syncope Respiratory: Reports: Shortness of Breath. Denies: Cough, Sputum Production, Hemoptysis Gastrointestinal: Denies: Hematemesis, Hematochezia, Melena Genitourinary: Denies: Dysuria, Hematuria Skin: Reports: - - Forearm erythema/possible abscess. Denies: Rash Objective: Vital Signs Temp Pulse Resp BP Pulse Ox 97.6 F L 96 21 H 143/99 H 99 08/12/20 14:21 08/12/20 16:30 08/12/20 16:30 08/12/20 14:21 08/12/20 16:30 Oxygen Delivery Method Room Air Weight: 277 lb 11.2 oz Body Mass Index (BMI) 37.6 08/12/20 11:40: WBC 9.0, RBC 4.15 L, Hgb 11.8 L, Hct 36.3 L, MCV 87.5, MCH 28.4, MCHC 32.5, Plt Count 260, MPV 10.5, Immature Gran % (Auto) 0.300, Neut % (Auto) 69.5, Lymph % (Auto) 15.0 L, [place] % (Auto) 11.3 H, Eos % (Auto) 3.7, Baso % (Auto) 0.2, Absolute Neuts (auto) 6.3, Nucleated RBC % 0 08/12/20 11:40: D-Dimer Quant (PE/DVT) 1.09 H* 08/12/20 11:40: Sodium 140, Potassium 3.3 L, Chloride 109 H, Carbon Dioxide 25.0, Anion Gap 6, BUN 14, Creatinine 1.04, Est GFR (MDRD) Af Amer 100, Est GFR (MDRD) Non-Af 83, BUN/Creatinine Ratio 13.5, Glucose 177 H, Calcium 7.8 L, Tr oponin I 0.030 08/12/20 15:25: Troponin I 0.032 Rhythm: Sinus rhythm EKG: Sinus rhythm; left bundle branch block CXR: IMPRESSION: Poor inspiration with some bibasilar atelectasis. Electronically Signed: Scar Moscoso MD at 12:[address] Scan: FINDINGS: Normal enhancement of the main pulmonary artery and right and left pulmonary arteries. Normal enhancement of the bilateral peripheral pulmonary arteries. There is no demonstrated pulmonary embolism. Normal thoracic aorta and visualized great vessels. There is no demonstrated aortic dissection. Normal heart and pericardium. Normal mediastinum. Normal hilar regions. Normal visualized trachea and bronchi. The lungs are well expanded. 6 cm noncalcified nodule left lower lobe the lungs on image 96 and follow-up CT is recommended in 6 months document stability. Normal pleura. Normal chest wall structures. Normal osseous structures. Normal visualized upper abdomen. CT/CTA Chest W/WO Contrast IMPRESSION: 1. No CT evidence of pulmonary embolism. 2. 6 mm noncalcified left lower lobe nodule and follow-up CT is recommended in 6 months document stability. Electronically Signed: Scar Moscoso MD at 13:15 EST Assessment/Plan 1. Chest pain The patient presented with chest pain. The etiology is unclear at this time. He has been undergoing cardiac evaluation. Thus far his troponin I levels are negative. His ECG demonstrates a left bundle branch block pattern which appears to be new compared to an ECG from December 2019. There are no other cardiovascular tests available for review at this time. He is also undergone evaluation for great vessel disease by chest CTA. This was thought to be negative. At the moment from a cardiac standpoint he will continue to be monitored. His enzymes will be followed as well as he will be requested to have a transthoracic echocardiogram performed to evaluate his left ventricular wall motion and systolic function. Depending upon his clinical course he may need further evaluation with diagnostic cardiac catheterization. In the interim he will continue evaluation and care of his multiple noncardiovascular issues. 2. Left bundle branch block pattern Again he does have a left bundle branch block pattern. This appears to be new compared to his previous ECG from December 2019. This does raise concerns of underlying cardiovascular disease. He will continue evaluation care as noted. 3. Hypertension He reportedly has hypertension. His blood pressure will need to be followed. His medicines will need to be adjusted accordingly. 4. Diabetes mellitus This does increase his cardiovascular risks. He will continue evaluation care per internal medicine. 5. IV drug abuse/methamphetamine abuse/THC use The patient has multiple illicit substance abuses demonstrated by his history and his objective findings. He is undergoing evaluation care by internal medicine for such and being monitored for withdrawal. 6. Abscess He does have a lesion on his left arm. It does raise concerns of an abscess. Apparently this is reported where he performs IV drug use injections. At the present time he is being evaluated by internal medicine and general surgery. This evaluation care may play a role in when he may or may not be able to proceed with additional cardiovascular studies such as diagnostic cardiac catheterization, etc. 7. GERD He has a history of GERD. He will continue evaluation care as deemed appropriate. 8. Bipolar He has a diagnosis of being bipolar. Again he will need evaluation care per internal medicine. 9. Obesity Unfortunately he is obese. He does need dietary modification, etc., to try and bring his weight under better control. Overall, from a cardiac standpoint, he will continue to be monitored. His cardiac enzymes will be followed. An echocardiogram will be requested to evaluate his left ventricular wall motion and systolic function. Depending upon his clinical course he may need further definitive cardiovascular evaluation such as diagnostic cardiac catheterization. This may depend upon when he is able to do so based upon his multiple medical issues including asked whether or not he has any acute infectious issues ongoing that require antibiotic therapy, etc. The patient's case has been previously discussed and reviewed with Dr. Ling. This note was generated using a voice recognition system and there may be incorrect words, spelling or punctuation that were not noted when reviewing the office note prior to saving. Procedure Criteria Procedure Type: Elective COVID Risk Discussion: The surgeon/proceduralist and patient have discussed in detail the risk of exposure to and/or potential harm posed by the COVID-19 virus with having a surgery/procedure at this time versus the risk of delaying the surgery/procedure. It is not possible to know either the risk of delaying the surgery or procedure or chance of getting an infection with perfect accuracy, but a joint decision was made between the patient and the surgeon/proceduralist to proceed at this time with the scheduled surgery/procedure as indicated on the consent form.
--- NOTE | 2020-08-12 17:17 | PCM.CONS.GEN ---
Reason for Consult Date of Consultation: 08/12/20 History of Present Illness: The patient is a 44 year old M the patient reports that he is here with fatigue and chest pain. The patient was found to have bundle branch block. The patient was admitted and cardiology consulted and it was noted the patient is an IV drug user and he has an abscess on his left forearm. The patient reports that is been there for about a week and has not drained anything. It is tender. Past Medical History Past Medical History (Chronic Problems): Chronic Problems Diabetes (Chronic) HTN (hypertension) (Chronic) Methamphetamine abuse (Chronic) IVDU (intravenous drug user) (Chronic) Tobacco abuse (Chronic) Tetrahydrocannabinol (THC) dependence (Chronic) Obesity (BMI 30-39.9) (Chronic) GERD (gastroesophageal reflux disease) (Chronic) Bipolar 1 disorder (Chronic) Allergies promethazine [From Phenergan] Allergy (Verified 08/12/20 10:00) Rash Penicillins Adverse Reaction (Verified 08/12/20 10:00) Upset Stomach Home Medications: Ambulatory Orders Medication Instructions Recorded Amlodipine [Norvasc] 10 mg PO DAILY 08/12/20 Aripiprazole [Abilify] 5 mg PO DAILY 08/12/20 Aspirin [Aspirin, Baby] 81 mg PO DAILY@0800 08/12/20 Multivit-Min/FA/Lycopen/Lutein 1 tab PO DAILY 08/12/20 [Centrum Silver Men Tablet] Omeprazole [Prilosec] 20 mg PO DAILY 08/12/20 metFORMIN HCl [Glucophage] 1,000 mg PO BIDCM 08/12/20 Surgical History: noncontributory Psychiatric History: Anxiety, Bipolar Lives: With Family Smoking Status: Former smoker Tobacco Use: Cigarettes - Quit 3 weeks ago Alcohol: Rare Drugs: Marijuana, - - Methamphetamines - *Family History Maternal History Items: Unknown Paternal History Items: Unknown Review of Systems Constitutional: Denies: Anorexia, Fever Cardiovascular: Reports: Chest Pain Respiratory: Denies: Cough, Shortness of Breath Gastrointestinal: Denies: Abdominal Pain, Nausea, Vomiting Neurological: Denies: Balance problems Hematologic/ Lymphatic: Denies: Anemia Patient Problems: Active and Suspected Problems Chest pain (Acute) Hypokalemia (Acute) Abscess (Acute) LBBB (left bundle branch block) (Acute) - Physical Exam Vitals/I&O's: Vital Signs Temp Pulse Resp BP Pulse Ox 97.6 F L 96 21 H 143/99 H 99 08/12/20 14:21 08/12/20 16:30 08/12/20 16:30 08/12/20 14:21 08/12/20 16:30 Oxygen Delivery Method Room Air Weight: 277 lb 11.2 oz Body Mass Index (BMI) 37.6 General: Alert, Oriented x3 Neck: No JVD Lungs: Normal air movement Cardiovascular: Regular rate, Regular Rhythm Abdomen: Soft, Non Tender, Non-Distended Extremities: - - There is an abscess on the left forearm in the posterior aspect with fluctuance and warmth and erythema Musculoskeletal: No Muscle Wasting Neurological: Cranial nerves II-XII grossly intact Psych/Mental Status: Normal Affect Microbiology Past 72 Hours 08/12/20 11:40 Mucosa - Nose SARS-CoV-2 Antigen (Rapid) - Final Laboratory Results 08/12/20 11:40: WBC 9.0, RBC 4.15 L, Hgb 11.8 L, Hct 36.3 L, MCV 87.5, MCH 28.4, MCHC 32.5, RDW Std Deviation 41.3, RDW Coeff of Polly 13.2, Plt Count 260, MPV 10.5, Immature Gran % (Auto) 0.300, Neut % (Auto) 69.5, Lymph % (Auto) 15.0 L, [place] % (Auto) 11.3 H, Eos % (Auto) 3.7, Baso % (Auto) 0.2, Absolute Neuts (auto) 6.3, Absolute Lymphs (auto) 1.35, Nucleated RBC % 0 08/12/20 11:40: D-Dimer Quant (PE/DVT) 1.09 H* 08/12/20 11:40: Sodium 140, Potassium 3.3 L, Chloride 109 H, Carbon Dioxide 25.0, Anion Gap 6, BUN 14, Creatinine 1.04, Estim Creat Clear Calc 100.52, Est GFR (MDRD) Af Amer 100, Est GFR (MDRD) Non-Af 83, BUN/Creatinine Ratio 13.5, Glucose 177 H, Calcium 7.8 L, Troponin I 0.030 08/12/20 11:40: Hepatitis C Antibody Non-Reactive, HIV 1&2 Antibody Non-Reactive 08/12/20 13:50: Urine Opiates Screen NEGATIVE, Urine Methadone Screen NEGATIVE, Ur Barbiturates Screen NEGATIVE, Ur Phencyclidine Scrn NEGATIVE, Ur Amphetamines Screen POSITIVE H, U Methamphetamin-MDMA NEGATIVE, U Benzodiazepines Scrn NEGATIVE, Urine Cocaine Screen NEGATIVE, U Cannabinoids Screen POSITIVE H, Ur Drug Screen Comment 08/12/20 15:25: Troponin I 0.032 08/12/20 17:05: POC Glucose 118 H Current Medications Acetaminophen (Acetaminophen 325 Mg Tablet) 650 mg PO Q6H PRN PRN PRN Reason: Pain Score 1-10/Temp > 100.7 F Al Hydroxide/Mg Hydroxide (Mag Hydrox/Al Hydrox/Simeth 30 Ml Udc) 30 ml PO Q6H PRN PRN PRN Reason: Gastric Burning Albuterol Sulfate (Albuterol 2.5 Mg/3 Ml Vial.Neb.) 2.5 mg INHALATION Q2H PRN PRN PRN Reason: SOB/Wheezing Amlodipine Besylate (Amlodipine 10 Mg Tablet) 10 mg PO DAILY [facility] Aripiprazole (Aripiprazole 5 Mg Tablet) 5 mg PO DAILY [facility] Aspirin (Aspirin E.C. 81 Mg Tablet) 81 mg PO DAILY@0800 [facility] Atorvastatin Calcium (Atorvastatin Calcium 80 Mg Tablet) 80 mg PO QHS [facility] Influenza Virus Vaccine Quadrival (Influenza Vaccine (6mos+)/Pf 0.5 Ml Syringe) 0.5 ml IM .ONCE ONE Stop: 08/13/20 10:01 Insulin Human Lispro (Insulin Lispro 100 Unit/Ml Insuln.Pen) 0 unit SC [facility]; Protocol Last Admin: 08/12/20 17:07 Dose: Not Given Documented by: Melatonin (Melatonin 3 Mg Tablet) 3 mg PO QHS PRN PRN PRN Reason: INSOMNIA Metoprolol Tartrate (Metoprolol Tartrate 25 Mg Tablet) 25 mg PO BID [facility] Nitroglycerin (Nitroglycerin (Inpatient Use) 0.4 Mg Tab.Subl) 0.4 mg SL Q5M PRN PRN Reason: CARDIAC/CHEST PAIN Ondansetron HCl (Ondansetron 4 Mg/2 Ml Vial) 4 mg IV Q8H PRN PRN PRN Reason: NAUSEA/VOMITING Pantoprazole Sodium (Pantoprazole Sodium 20 Mg Tablet) 20 mg PO DAILY [facility] Senna/Docusate Sodium (Senna/Docusate Sodium 1 Tablet) 2 tablet PO BID PRN PRN PRN Reason: Constipation Sodium Chloride (0.9% Saline Lock 10 Ml Syringe) 10 - 40 ml IV UD PRN PRN Reason: SALINE FLUSH Trimethoprim/Sulfamethoxazole ([facility]/Plan All Active Problems Chest pain (Acute) Hypokalemia (Acute) Abscess (Acute) LBBB (left bundle branch block) (Acute) 44-year-old male with arm abscess 1. The patient was inspected and appeared to have a large abscess of the left forearm. I discussed I&D with him in detail. I discussed the risks including not limited to bleeding, infection. Patient understood the risks and would like incision and drainage. I performed this at the bedside and cultured the fluid. The incision was packed with quarter inch iodoform gauze. Patient tolerated the procedure well. Cultures were sent. Mateus Styles MD Pager: [facility] [address] [place] [address] [address] [place] [address] Office:
--- NOTE | 2020-08-12 17:21 | PCM.OPRPT ---
Report of Operation Date of Procedure: 08/12/20 Pre-Operative Diagnosis: Left arm abscess Post-Operative Diagnosis: Same Surgery/Procedure Performed:: Left arm incision and drainage of abscess Specimen's removed: Culture of fluid Description of Procedure: The patient's left forearm was prepped and draped in usual sterile fashion. The area was injected with local anesthetic. An 11 blade scalpel was used to make a small incision in the skin and clear fluid was expressed. This fluid was cultured and the wound was packed with quarter inch iodoform gauze. Dressing was applied.
[2020-08-12] MEDS: Smz/Tmp Ds Tablet 2 TABLET PO (17:54)
--- NOTE | 2020-08-12 20:04 | CPS ---
Patient is refusing BiPAP at this time.
[2020-08-12] MEDS: Metoprolol Tartrate 25 MG Tablet PO (21:32)
[2020-08-12] MEDS: Atorvastatin Calcium 80 MG Tablet PO (21:32)
[2020-08-12] MEDS: DiphenhydrAMINE 25 MG Capsule PO (21:32)
[2020-08-12 21:45] LABS: Bedside Glucose 123 mg/dL (70-110)
[2020-08-13] VITALS (11 sets, daily range): BP systolic 102–126; BP diastolic 76–80; PULSE 89–100; RESP 14–18; TEMP 36.7–37; O2SAT 98–100
--- NOTE | 2020-08-13 05:46 | CPS ---
Patient refused BiPAP throughout night. Monitored throughout night with no noted episodes of tachypnea or hypoxia. For these reason, RESERVOIR ENGINEERING ADVISOR pulled BiPAP for refusal by patient. Machine cleaned and out of room. RN aware.
--- NOTE | 2020-08-13 05:55 | ECHOCS_ITS ---
Reason For Study: Chest Pain Procedure This was a 2D Doppler, Color Flow transthoracic echocardiogram. The study was technically difficult. Contrast injection was performed. Exam performed portable in patient room. Left Ventricle Mildly dilated left ventricle. Severe segmental systolic dysfunction (see wall motion). The estimated ejection fraction is 25 %. Transmitral doppler flow suggestive of impaired relaxation of left ventricle. Infero-Basal: Hypokinetic. Basal inferoseptal: Akinetic. Basal anteroseptal: Hypokinetic. Mid-Anterior : Hypokinetic. Mid-Lateral : Hypokinetic. Mid-Posterior: Hypokinetic. Mid- Inferior: Akinetic. Mid-inferoseptal : Akinetic. Mid-anteroseptal : Akinetic. Anterior [place] : Hypokinetic. Inferior [place] : Akinetic. Lateral [place] : Hypokinetic. Septal [place] : Akinetic. Right Ventricle Normal RV size. Normal systolic function. Atria The left atrium is mildly enlarged. Normal right atrium. No doppler evidence for ASD. Mitral Valve There is no mitral annular calcification. Mild diffuse mitral valve thickening. Mild-Moderate (1-2+) mitral valve insufficiency. Tricuspid Valve Normal tricuspid valve. Mild tricuspid valve insufficiency. Right ventricular systolic pressure estimated to be 39 mmHg. Aortic Valve Trisinus/trileaflet aortic valve. Normal aortic valve. Pulmonic Valve The pulmonic valve is not well visualized. Mild (1+) pulmonic valve insufficiency. Great Vessels Normal sized aortic root. Pericardium/Pleural No pericardial effusion. Medication Diluted definity 4ml given slow IV push to enhance endocardial definition. MMode/2D Measurements & Calculations LVIDd: 5.9 cm IVSd: 1.3 cm Ao root diam: 3.4 cm LVIDs: 5.0 cm LVPWd: 1.4 cm RVDd: 4.1 cm FS: 15.2 % LAV(MOD-bp): 72.9 ml LA A4 area: 22.5 cm2 LA dimension(2D): 5.1 cm LAV(MOD-bp) Indexed: 29.8 ml/m2 LAV(MOD-sp2): 68.4 ml LAV(MOD-sp4): 69.1 ml RA A4 area: 16.9 cm2 Doppler Measurements & Calculations MV E max waldemar: 84.5 cm/sec Lat Peak E' Waldemar: 7.9 cm/sec Med Peak E' Waldemar: 5.6 cm/sec MV A max waldemar: 116.1 cm/sec E/E' lat: 10.7 E/E' med: 15.2 MV E/A: 0.73 Ao V2 max: 149.5 cm/sec LV V1 max: 124.4 cm/sec PA V2 max: 104.8 cm/sec Ao max P.9 mmHg LV V1 max P.2 mmHg Ao V2 mean: 113.9 cm/sec Ao mean P.6 mmHg Ao V2 VTI: 22.5 cm PI end-d waldemar: 166.0 cm/sec TR max waldemar: 298.3 cm/sec TR max P.6 mmHg Interpretation Summary The study was technically difficult. Contrast injection was performed. Mildly dilated left ventricle. Severe segmental systolic dysfunction (see wall motion). The estimated ejection fraction is 25 %. The left atrium is mildly enlarged. Mild diffuse mitral valve thickening. Mild-Moderate (1-2+) mitral valve insufficiency. Mild tricuspid valve insufficiency. Mild (1+) pulmonic valve insufficiency. Right ventricular systolic pressure estimated to be 39 mmHg. Ordering Physician: Surya Viera Referring Physician: Kerry Salter Performed By: Marina Amaya, PEGGY, RVT
[2020-08-13 06:02] LABS: Absolute Lymphocyte Count 1.95 X10^3/uL (0.83-4.51); Absolute Neutrophil Count 5.2 X10^3/uL (2.0-7.7); Basophil# 0.04 X10^3/uL; Basophil% 0.5 % (0-1); Eosinophil# 0.31 X10^3/uL; Eosinophils% 3.7 % (0-5); Hematocrit 37.2 % (40-54); Hemoglobin 11.7 g/dL (13.0-16.5); Lymphocyte # 1.95 X10^3/ul (4.0); Mean Corp Hgb Conc 31.5 g/dL (32-36); Mean Corpuscular Hgb 27.7 pg (27.0-32.0); Mean Corpuscular Volume 88.2 fL (80-94); Mean Platelet Vol. 10.5 fl (6.2-12.0); Monocyte# 0.97 X10^3/uL; Monocyte% 11.5 % (0-10); NRBC Flagged by Analyzer 0 % (0-5); Neutrophil # 5.17 X10^3/uL (2.7-7.7); Neutrophil % 61.1 % (47-70); Platelet Count 267 K/mm3 (150-450); RBC Distribution Width CV 13.3 % (11.6-14.6); RBC Distribution Width SD 42.4 fl (35.1-43.9); Red Blood Count 4.22 M/mm3 (4.6-6.2); White Blood Count 8.5 K/mm3 (4.4-11.0)
[2020-08-13] MEDS: Metoprolol Tartrate 25 MG Tablet PO ×2 (06:18→21:13)
[2020-08-13] MEDS: amLODIPine 10 MG Tablet PO (06:18)
[2020-08-13] MEDS: Aspirin E.C. 81 MG Tablet PO (06:19)
[2020-08-13 06:45] LABS: ALB/GLOB Ratio 0.8 RATIO (0.9-2.4); AST(SGOT) 30 U/L (15-37); Alanine Aminotransfer ALT/SGPT 47 U/L (16-61); Albumin, Serum 2.8 g/dL (3.2-5.0); Alkaline Phosphatase 69 U/L (45-117); Anion Gap 5 (5-15); BUN 12 mg/dL (7-18); BUN/Creat Ratio 11.5 RATIO (10-20); Calcium,Total 7.7 mg/dL (8.5-10.1); Chloride 111 mmol/L (98-107); Cholesterol 70 mg/dL (200); Creatinine, Serum 1.04 mg/dL (0.70-1.30); EST Glomerular Filtration Rate 83 mL/min (>60); Est Glom Filt Rate - Afr Amer 100 mL/min (>60); Estimated Creatinine Clearance 100.52 ml/min; Globulin 3.7 g/dL (2.2-4.2); Glucose 115 mg/dL (74-106); High Density Lipoprotein 27 mg/dL; Phosphorus 2.5 mg/dL (2.5-4.9); Potassium 4.1 mmol/L (3.5-5.1); Protein, Total 6.5 g/dL (6.4-8.2); Sodium Level 141 mmol/L (136-145); Thyroid Stim Hormone (TSH) 1.13 uIU/mL (0.358-3.74); Triglycerides 55 mg/dL; Very Low Density Lipoprotein 11 mg/dL (5-40)
[2020-08-13 07:00] LABS: Bedside Glucose 110 mg/dL (70-110)
[2020-08-13 07:46] LABS: Hemoglobin A1c 5.9 % (3.8-5.6)
--- NOTE | 2020-08-13 08:30 | PN.SURG_ITS ---
Patient Problems: Active and Suspected Problems Chest pain (Acute) Hypokalemia (Acute) Abscess (Acute) LBBB (left bundle branch block) (Acute) Subjective: Patient is not complaining of any pain of the left arm today. He did have some purulent and bloody discharge overnight. - Physical Exam Vitals/I&O's: Vital Signs Temp Pulse Resp BP Pulse Ox 98.0 F 97 18 115/80 99 08/13/20 06:09 08/13/20 07:00 08/13/20 06:09 08/13/20 06:18 08/13/20 06:09 Oxygen Delivery Method Room Air Weight: 277 lb 11.2 oz Body Mass Index (BMI) 37.6 Intake and Output for Last 24 Hours 08/11/20 08/12/20 08/13/20 23:59 23:59 23:59 Intake Total 660 / 660 120 / 120 Balance 660 / 660 120 / 120 General: Alert, Oriented x3 Lungs: Normal air movement Extremities: - - Left forearm red with warmth and purulent drainage Microbiology Past 72 Hours 08/12/20 11:40 Mucosa - Nose SARS-CoV-2 Antigen (Rapid) - Final Laboratory Results 08/12/20 11:40: WBC 9.0, RBC 4.15 L, Hgb 11.8 L, Hct 36.3 L, MCV 87.5, MCH 28.4, MCHC 32.5, RDW Std Deviation 41.3, RDW Coeff of Polly 13.2, Plt Count 260, MPV 10. 5, Immature Gran % (Auto) 0.300, Neut % (Auto) 69.5, Lymph % (Auto) 15.0 L, [place] % (Auto) 11.3 H, Eos % (Auto) 3.7, Baso % (Auto) 0.2, Absolute Neuts (auto) 6.3, Absolute Lymphs (auto) 1.35, Nucleated RBC % 0 08/12/20 11:40: D-Dimer Quant (PE/DVT) 1.09 H* 08/12/20 11:40: Sodium 140, Potassium 3.3 L, Chloride 109 H, Carbon Dioxide 25.0, Anion Gap 6, BUN 14, Creatinine 1.04, Estim Creat Clear Calc 100.52, Est GFR (MDRD) Af Amer 100, Est GFR (MDRD) Non-Af 83, BUN/Creatinine Ratio 13.5, Glucose 177 H, Calcium 7.8 L, Troponin I 0.030 08/12/20 11:40: Hepatitis C Antibody Non-Reactive, HIV 1&2 Antibody Non-Reactive 08/12/20 13:50: Urine Opiates Screen NEGATIVE, Urine Methadone Screen NEGATIVE, Ur Barbiturates Screen NEGATIVE, Ur Phencyclidine Scrn NEGATIVE, Ur Amphetamines Screen POSITIVE H, U Methamphetamin-MDMA NEGATIVE, U Benzodiazepines Scrn NEGATIVE, Urine Cocaine Screen NEGATIVE, U Cannabinoids Screen POSITIVE H, Ur Drug Screen Comment 08/12/20 15:25: Troponin I 0.032 08/12/20 17:05: POC Glucose 118 H 08/12/20 17:37: Troponin I 0.028 08/12/20 21:31: POC Glucose 123 H 08/13/20 05:42: WBC 8.5, RBC 4.22 L, Hgb 11.7 L, Hct 37.2 L, MCV 88.2, MCH 27.7, MCHC 31.5 L, RDW Std Deviation 42.4, RDW Coeff of Polly 13.3, Plt Count 267, MPV 10.5, Immature Gran % (Auto) 0.200, Neut % (Auto) 61.1, Lymph % (Auto) 23.0, [place] % (Auto) 11.5 H, Eos % (Auto) 3.7, Baso % (Auto) 0.5, Absolute Neuts (auto) 5.2, Absolute Lymphs (auto) 1.95, Nucleated RBC % 0 08/13/20 05:42: Sodium 141, Potassium 4.1, Chloride 111 H, Carbon Dioxide 25.0, Anion Gap 5, BUN 12, Creatinine 1.04, Estim Creat Clear Calc 100.52, Est GFR (MDRD) Af Amer 100, Est GFR (MDRD) Non-Af 83, BUN/Creatinine Ratio 11.5, Glucose 115 H, Calcium 7.7 L, Phosphorus 2.5, Magnesium 2.0, Total Bilirubin 0.60, AST 30, ALT 47, Alkaline Phosphatase 69, Total Protein 6.5, Albumin 2.8 L, Globulin 3.7, Albumin/Globulin Ratio 0.8 L, Triglycerides 55, Cholesterol 70, LDL Cholesterol 32, VLDL Cholesterol 11, HDL Cholesterol 27 L, TSH 1.13 08/13/20 05:42: Hemoglobin A1c 5.9 H 08/13/20 06:14: POC Glucose 110 Current Medications Acetaminophen (Acetaminophen 325 Mg Tablet) 650 mg PO Q6H PRN PRN PRN Reason: Pain Score 1-10/Temp > 100.7 F Al Hydroxide/Mg Hydroxide (Mag Hydrox/Al Hydrox/Simeth 30 Ml Udc) 30 ml PO Q6H PRN PRN PRN Reason: Gastric Burning Albuterol Sulfate (Albuterol 2.5 Mg/3 Ml Vial.Neb.) 2.5 mg INHALATION Q2H PRN PRN PRN Reason: SOB/Wheezing Amlodipine Besylate (Amlodipine 10 Mg Tablet) 10 mg PO DAILY [facility] Last Admin: 08/13/20 06:18 Dose: 10 mg Documented by: Aripiprazole (Aripiprazole 5 Mg Tablet) 5 mg PO DAILY [facility] Aspirin (Aspirin E.C. 81 Mg Tablet) 81 mg PO DAILY@0800 [facility] Last Admin: 08/13/20 06:19 Dose: 81 mg Documented by: Atorvastatin Calcium (Atorvastatin Calcium 80 Mg Tablet) 80 mg PO QHS [facility] Last Admin: 08/12/20 21:32 Dose: 80 mg Documented by: Influenza Virus Vaccine Quadrival (Influenza Vaccine (6mos+)/Pf 0.5 Ml Syringe) 0.5 ml IM .ONCE ONE Stop: 08/13/20 10:01 Insulin Human Lispro (Insulin Lispro 100 Unit/Ml Insuln.Pen) 0 unit SC [facility]; Protocol Last Admin: 08/13/20 06:20 Dose: Not Given Documented by: Melatonin (Melatonin 3 Mg Tablet) 3 mg PO QHS PRN PRN PRN Reason: INSOMNIA Metoprolol Tartrate (Metoprolol Tartrate 25 Mg Tablet) 25 mg PO BID [facility] Last Admin: 08/13/20 06:18 Dose: 25 mg Documented by: Nitroglycerin (Nitroglycerin (Inpatient Use) 0.4 Mg Tab.Subl) 0.4 mg SL Q5M PRN PRN Reason: CARDIAC/CHEST PAIN Ondansetron HCl (Ondansetron 4 Mg/2 Ml Vial) 4 mg IV Q8H PRN PRN PRN Reason: NAUSEA/VOMITING Pantoprazole Sodium (Pantoprazole Sodium 20 Mg Tablet) 20 mg PO DAILY [facility] Senna/Docusate Sodium (Senna/Docusate Sodium 1 Tablet) 2 tablet PO BID PRN PRN PRN Reason: Constipation Sodium Chloride (0.9% Saline Lock 10 Ml Syringe) 10 - 40 ml IV UD PRN PRN Reason: SALINE FLUSH Trimethoprim/Sulfamethoxazole (Smz/Tmp Ds Tablet) 2 tablet PO BIDCM [facility] Last Admin: 08/12/20 17:54 Dose: 2 tablet Documented by: Medical Necessity - Tobacco Use Smoking Status: Former smoker Tobacco Use: Cigarettes - Quit 3 weeks ago Assessment/Plan All Active Problems Chest pain (Acute) Hypokalemia (Acute) Abscess (Acute) LBBB (left bundle branch block) (Acute) 44-year-old male left forearm abscess 1. Patient had incision and drainage of left forearm abscess yesterday. The packing and dressing can be changed daily and as needed. Microbiology is pending. Continue antibiotics. Mateus Styles MD Pager: [facility] [address] [place] [address], [address] [place] [address] Office:
[2020-08-13] MEDS: Smz/Tmp Ds Tablet 2 TABLET PO ×2 (08:36→17:12)
[2020-08-13] MEDS: ARIPiprazole 5 MG Tablet PO (08:36)
[2020-08-13] MEDS: Pantoprazole Sodium 20 MG Tablet PO (08:36)
--- NOTE | 2020-08-13 09:57 | PCM.PN.CARD ---
Subjectve: The patient appears to be more awake today. He states he has had a history of chest discomfort. He denies any ongoing acute issues at this time. He states he has been resting comfortably. He notes his left arm feels better status post his surgical I&D. Objective: Vital Signs Temp Pulse Resp BP Pulse Ox 98.0 F 97 18 115/80 99 08/13/20 06:09 08/13/20 07:00 08/13/20 06:09 08/13/20 06:18 08/13/20 06:09 Oxygen Delivery Method Room Air Weight: 277 lb 11.2 oz Body Mass Index (BMI) 37.6 Intake and Output for Last 24 Hours 08/11/20 08/12/20 08/13/20 23:59 23:59 23:59 Intake Total 660 / 660 120 / 120 Balance 660 / 660 120 / 120 General: Awake, Alert, Oriented x 3, Cooperative, No Acute Distress, Obese HEENT: Atraumatic, Normocephalic, PERRL, EOMI, Sclera Non Icteric Neck: No JVD Lungs: Clear to auscultation Cardiovascular: Regular Rhythm, Normal S1, Normal S2 Vascular: No Carotid Bruits Abdomen: Bowel Sounds Present, Soft Extremities: No edema Skin: - - Left Arm: Surgical dressing Psych/Mental Status: Appropriate 08/12/20 11:40: WBC 9.0, RBC 4.15 L, Hgb 11.8 L, Hct 36.3 L, MCV 87.5, MCH 28.4, MCHC 32.5, Plt Count 260, MPV 10.5, Immature Gran % (Auto) 0.300, Neut % (Auto) 69.5, Lymph % (Auto) 15.0 L, [place] % (Auto) 11.3 H, Eos % (Auto) 3.7, Baso % (Auto) 0.2, Absolute Neuts (auto) 6.3, Nucleated RBC % 0 08/12/20 11:40: D-Dimer Quant (PE/DVT) 1.09 H* 08/12/20 11:40: Sodium 140, Potassium 3.3 L, Chloride 109 H, Carbon Dioxide 25.0, Anion Gap 6, BUN 14, Creatinine 1.04, Est GFR (MDRD) Af Amer 100, Est GFR (MDRD) Non-Af 83, BUN/Creatinine Ratio 13.5, Glucose 177 H, Calcium 7.8 L, Troponin I 0.030 08/12/20 15:25: Troponin I 0.032 08/12/20 17:37: Troponin I 0.028 08/13/20 05:42: WBC 8.5, RBC 4.22 L, Hgb 11.7 L, Hct 37.2 L, MCV 88.2, MCH 27.7, MCHC 31.5 L, Plt Count 267, MPV 10.5, Immature Gran % (Auto) 0.200, Neut % (Auto) 61.1, Lymph % (Auto) 23.0, [place] % (Auto) 11.5 H, Eos % (Auto) 3.7, Baso % (Auto) 0.5, Absolute Neuts (auto) 5.2, Nucleated RBC % 0 08/13/20 05:42: Sodium 141, Potassium 4.1, Chloride 111 H, Carbon Dioxide 25.0, Anion Gap 5, BUN 12, Creatinine 1.04, Est GFR (MDRD) Af Amer 100, Est GFR (MDRD) Non-Af 83, BUN/Creatinine Ratio 11.5, Glucose 115 H, Calcium 7.7 L, Phosphorus 2.5, Magnesium 2.0, Total Bilirubin 0.60, Triglycerides 55, Cholesterol 70, LDL Cholesterol 32, VLDL Cholesterol 11, HDL Cholesterol 27 L 08/13/20 05:42: Hemoglobin A1c 5.9 H Rhythm: Sinus rhythm Medical Necessity - Tobacco Use Smoking Status: Former smoker Tobacco Use: Cigarettes - Quit 3 weeks ago Assessment/Plan 1. Chest pain The patient presented with chest pain. The etiology is unclear at this time. He has been undergoing cardiac evaluation. Thus far his troponin I levels are negative. His ECG demonstrates a left bundle branch block pattern which appears to be new compared to an ECG from December 2019. There are no other cardiovascular tests available for review at this time. He is also undergone evaluation for great vessel disease by chest CTA. This was thought to be negative. Present time as his cardiac enzymes are negative he will continue a noninvasive evaluation which will include a pharmacologic stress nuclear imaging study. Depending upon the findings he may or may not need further cardiac diagnostic studies such as diagnostic cardiac catheterization. However it would be reasonable, if he were to require such a procedure, to allow him time to improve from his infectious disease process and surgical wound prior to proceeding with such a procedure. 2. Left bundle branch block pattern Again he does have a left bundle branch block pattern. This appears to be new compared to his previous ECG from December 2019. This does raise concerns of underlying cardiovascular disease. He will continue evaluation care as noted. 3. Hypertension He reportedly has hypertension. His blood pressure will need to be followed. His medicines will need to be adjusted accordingly. 4. Diabetes mellitus This does increase his cardiovascular risks. He will continue evaluation care per internal medicine. 5. IV drug abuse/methamphetamine abuse/THC use The patient has multiple illicit substance abuses demonstrated by his history and his objective findings. He is undergoing evaluation care by internal medicine for such and being monitored for withdrawal. 6. Abscess He does have a lesion on his left arm. It does raise concerns of an abscess. Apparently this is reported where he performs IV drug use injections. At the present time he is being evaluated by internal medicine and general surgery. This evaluation care may play a role in when he may or may not be able to proceed with additional cardiovascular studies such as diagnostic cardiac catheterization, etc. 7. GERD He has a history of GERD. He will continue evaluation care as deemed appropriate. 8. Bipolar He has a diagnosis of being bipolar. Again he will need evaluation care per internal medicine. 9. Obesity Unfortunately he is obese. He does need dietary modification, etc., to try and bring his weight under better control. The patient's case has been previously discussed and reviewed with Dr. Escalante. This note was generated using a voice recognition system and there may be incorrect words, spelling or punctuation that were not noted when reviewing the office note prior to saving.
[2020-08-13 11:30] LABS: Bedside Glucose 119 mg/dL (70-110)
--- NOTE | 2020-08-13 13:25 | CASEMGMT ---
SW has attempted several times to talk with patient, however he is always sleeping and does not wake when SW calls his name. SW will continue to check back with patient. Neli MICHELLE MSW
--- NOTE | 2020-08-13 13:41 | PN_ITS ---
<Noble Davalos - Last Filed: 08/13/20 13:41> Patient Problems: Active and Suspected Problems Chest pain (Acute) Hypokalemia (Acute) Abscess (Acute) LBBB (left bundle branch block) (Acute) Subjective: Patient is a 44-year-old male who is comfortably resting in bed, alert and oriented x3. Currently denies chest pain, shortness of breath, fever, nausea vomiting, chills. Objective: Clinical Impression(s) from Imaging Studies Chest X-Ray 08/12/20 11:44 IMPRESSION: Poor inspiration with some bibasilar atelectasis. Electronically Signed: Scar Moscoso MD at 12:24 EST Tel , Service support , Chest CTA 08/12/20 12:16 IMPRESSION: 1. No CT evidence of pulmonary embolism. 2. 6 mm noncalcified left lower lobe nodule and follow-up CT is recommended in 6 months document stability. Electronically Signed: Scar Moscoso MD at 13:15 EST Tel , Service support , Microbiology 08/12/20 16:30 Wound Abcess - Arm Gram Stain - Final 08/12/20 11:40 Mucosa - Nose SARS-CoV-2 Antigen (Rapid) - Final Vitals/I&O's: Vital Signs Temp Pulse Resp BP Pulse Ox 98.4 F 89 18 104/76 100 08/13/20 12:09 08/13/20 12:09 08/13/20 12:09 08/13/20 12:09 08/13/20 12:09 Oxygen Delivery Method Room Air Weight: 277 lb 11.2 oz Body Mass Index (BMI) 37.6 Intake and Output for Last 24 Hours 08/11/20 08/12/20 08/13/20 23:59 23:59 23:59 Intake Total 660 / 660 360 / 360 Balance 660 / 660 360 / 360 General: Alert, Oriented x3, Cooperative HEENT: Atraumatic, PERRLA, EOMI, Normocephalic Neck: Supple, No JVD, Negative Carotid Bruits Lungs: Clear to auscultation, Normal air movement Cardiovascular: Regular rate, No murmurs Abdomen: Bowel Sounds Present, Soft, Non Tender Extremities: No edema, Capillary Refill Less than 3 Seconds, - - Wound dressing over the left arm from I&D of abscess Skin: No rashes, No breakdown Musculoskeletal: No Tenderness to Palpation of Joints or Extremities Neurological: Cranial nerves II-XII grossly intact Psych/Mental Status: Normal Affect, Appropriate Microbiology Past 72 Hours 08/12/20 16:30 Wound Abcess - Arm Gram Stain - Final 08/12/20 11:40 Mucosa - Nose SARS-CoV-2 Antigen (Rapid) - Final Laboratory Results 08/12/20 11:40: Hepatitis C Antibody Non-Reactive, HIV 1&2 Antibody Non-Reactive 08/12/20 13:50: Urine Opiates Screen NEGATIVE, Urine Methadone Screen NEGATIVE, Ur Barbiturates Screen NEGATIVE, Ur Phencyclidine Scrn NEGATIVE, Ur Amphetamines Screen POSITIVE H, U Methamphetamin-MDMA NEGATIVE, U Benzodiazepines Scrn NEGATIVE, Urine Cocaine Screen NEGATIVE, U Cannabinoids Screen POSITIVE H, Ur Drug Screen Comment 08/12/20 15:25: Troponin I 0.032 08/12/20 17:05: POC Glucose 118 H 08/12/20 17:37: Troponin I 0.028 08/12/20 21:31: POC Glucose 123 H 08/13/20 05:42: WBC 8.5, RBC 4.22 L, Hgb 11.7 L, Hct 37.2 L, MCV 88.2, MCH 27.7, MCHC 31.5 L, RDW Std Deviation 42.4, RDW Coeff of Polly 13.3, Plt Count 267, MPV 10.5, Immature Gran % (Auto) 0.200, Neut % (Auto) 61.1, Lymph % (Auto) 23.0, [place] % (Auto) 11.5 H, Eos % (Auto) 3.7, Baso % (Auto) 0.5, Absolute Neuts (auto) 5.2, Absolute Lymphs (auto) 1.95, Nucleated RBC % 0 08/13/20 05:42: Sodium 141, Potassium 4.1, Chloride 111 H, Carbon Dioxide 25.0, Anion Gap 5, BUN 12, Creatinine 1.04, Estim Creat Clear Calc 100.52, Est GFR (MDRD) Af Amer 100, Est GFR (MDRD) Non-Af 83, BUN/Creatinine Ratio 11.5, Glucose 115 H, Calcium 7.7 L, Phosphorus 2.5, Magnesium 2.0, Total Bilirubin 0.60, AST 30, ALT 47, Alkaline Phosphatase 69, Total Protein 6.5, Albumin 2.8 L, Globulin 3.7, Albumin/Globulin Ratio 0.8 L, Triglycerides 55, Cholesterol 70, LDL Cholesterol 32, VLDL Cholesterol 11, HDL Cholesterol 27 L, TSH 1.13 08/13/20 05:42: Hemoglobin A1c 5.9 H 08/13/20 06:14: POC Glucose 110 08/13/20 11:23: POC Glucose 119 H Current Medications Acetaminophen (Acetaminophen 325 Mg Tablet) 650 mg PO Q6H PRN PRN PRN Reason: Pain Score 1-10/Temp > 100.7 F Al Hydroxide/Mg Hydroxide (Mag Hydrox/Al Hydrox/Simeth 30 Ml Udc) 30 ml PO Q6H PRN PRN PRN Reason: Gastric Burning Albuterol Sulfate (Albuterol 2.5 Mg/3 Ml Vial.Neb.) 2.5 mg INHALATION Q2H PRN PRN PRN Reason: SOB/Wheezing Amlodipine Besylate (Amlodipine 10 Mg Tablet) 10 mg PO DAILY [facility] Last Admin: 08/13/20 06:18 Dose: 10 mg Documented by: Aripiprazole (Aripiprazole 5 Mg Tablet) 5 mg PO DAILY [facility] Last Admin: 08/13/20 08:36 Dose: 5 mg Documented by: Aspirin (Aspirin E.C. 81 Mg Tablet) 81 mg PO DAILY@0800 [facility] Last Admin: 08/13/20 06:19 Dose: 81 mg Documented by: Atorvastatin Calcium (Atorvastatin Calcium 80 Mg Tablet) 80 mg PO QHS [facility] Last Admin: 08/12/20 21:32 Dose: 80 mg Documented by: Insulin Human Lispro (Insulin Lispro 100 Unit/Ml Insuln.Pen) 0 unit [facility]; Protocol Last Admin: 08/13/20 12:20 Dose: Not Given Documented by: Melatonin (Melatonin 3 Mg Tablet) 3 mg PO QHS PRN PRN PRN Reason: INSOMNIA Metoprolol Tartrate (Metoprolol Tartrate 25 Mg Tablet) 25 mg PO BID [facility] Last Admin: 08/13/20 06:18 Dose: 25 mg Documented by: Nitroglycerin (Nitroglycerin (Inpatient Use) 0.4 Mg Tab.Subl) 0.4 mg SL Q5M PRN PRN Reason: CARDIAC/CHEST PAIN Ondansetron HCl (Ondansetron 4 Mg/2 Ml Vial) 4 mg IV Q8H PRN PRN PRN Reason: NAUSEA/VOMITING Pantoprazole Sodium (Pantoprazole Sodium 20 Mg Tablet) 20 mg PO DAILY [facility] Last Admin: 08/13/20 08:36 Dose: 20 mg Documented by: Senna/Docusate Sodium (Senna/Docusate Sodium 1 Tablet) 2 tablet PO BID PRN PRN PRN Reason: Constipation Sodium Chloride (0.9% Saline Lock 10 Ml Syringe) 10 - 40 ml IV UD PRN PRN Reason: SALINE FLUSH Trimethoprim/Sulfamethoxazole (Smz/Tmp Ds Tablet) 2 tablet PO BIDCM [facility] Last Admin: 08/13/20 08:36 Dose: 2 tablet Documented by: STROKE Vital Signs/Narrative: Vital Signs Temp Pulse Resp BP Pulse Ox 08/13/20 12:09 98.4 F 89 18 104/76 100 Medical Necessity - Tobacco Use Smoking Status: Former smoker Tobacco Use: Cigarettes - Quit 3 weeks ago Assessment/Plan All Active Problems Chest pain (Acute) Hypokalemia (Acute) Abscess (Acute) LBBB (left bundle branch block) (Acute) Chest pain (Acute) Hypokalemia (Acute) Abscess (Acute) Mr. Montiel is a 44 year old male with a past medical history of hypertension, DM-2, GERD, bipolar disorder, tobacco abuse, methamphetamine abuse, IV drug use, THC use, and obesity who presented to the ED with a chief complaint of chest pain. EKG revealed left bundle branch block, elevated D-dimer at 1.09, CT-A negative for PE or aortic dissection. CT-A did demonstrate a 6 mm noncalcified left lower lobe nodule. Patient was admitted for ACS with left bundle branch block, left forearm abscess secondary to IVDU, hypokalemia. Cardiology consulted. 1) ACS w/ LBBB Assessment - No elevation in troponin over cycle - If nuclear stress test unremarkable, cardiac catheterization pending per cardiology Plan - Nuclear imaging study scheduled for 08/14/2020 - Currently being followed by cardiology - Continue cardiac diet - N.p.o. after midnight 2) left forearm abscess secondary to IVDU Assessment - Wound cultures pending - Gram stain: Rare WBCs, 4+ RBCs, gram-positive cocci, gram-positive rods - Blood work and chemistries unremarkable Plan - Continue Bactrim DS p.o. twice daily 3) methamphetamine IVDU Assessment - Hepatitis C antibody nonreactive - HIV 1 and 2 antibody nonreactive - Patient does not wish to have an addiction medicine consult at this time Plan -Encourage addiction medicine consultation 4) DM2 Assessment - Hemoglobin A1c 5.9 Plan -Continue sliding scale insulin 5) Hypokalemia -resolved DVT prophylaxis; prophylactic Lovenox and SCDs Patient seen by Noble Davalos PA-C, under the supervision of Dr. Escalante <Richard Escalante - Last Filed: 08/13/20 15:02> Vitals/I&O's: Vital Signs Temp Pulse Resp BP Pulse Ox 98.4 F 89 18 104/76 100 08/13/20 12:09 08/13/20 12:09 08/13/20 12:09 08/13/20 12:09 08/13/20 12:09 Oxygen Delivery Method Room Air Weight: 125.963 kg Body Mass Index (BMI) 37.6 Intake and Output for Last 24 Hours 08/11/20 08/12/20 08/13/20 23:59 23:59 23:59 Intake Total 660 / 660 360 / 360 Balance 660 / 660 360 / 360 Microbiology Past 72 Hours 08/12/20 16:30 Wound Abcess - Arm Gram Stain - Final 08/12/20 11:40 Mucosa - Nose SARS-CoV-2 Antigen (Rapid) - Final Laboratory Results 08/12/20 11:40: Hepatitis C Antibody Non-Reactive, HIV 1&2 Antibody Non-Reactive 08/12/20 15:25: Troponin I 0.032 08/12/20 17:05: POC Glucose 118 H 08/12/20 17:37: Troponin I 0.028 08/12/20 21:31: POC Glucose 123 H 08/13/20 05:42: WBC 8.5, RBC 4.22 L, Hgb 11.7 L, Hct 37.2 L, MCV 88.2, MCH 27.7, MCHC 31.5 L, RDW Std Deviation 42.4, RDW Coeff of Polly 13.3, Plt Count 267, MPV 10.5, Immature Gran % (Auto) 0.200, Neut % (Auto) 61.1, Lymph % (Auto) 23.0, [place] % (Auto) 11.5 H, Eos % (Auto) 3.7, Baso % (Auto) 0.5, Absolute Neuts (auto) 5.2, Absolute Lymphs (auto) 1.95, Nucleated RBC % 0 08/13/20 05:42: Sodium 141, Potassium 4.1, Chloride 111 H, Carbon Dioxide 25.0, Anion Gap 5, BUN 12, Creatinine 1.04, Estim Creat Clear Calc 100.52, Est GFR (MDRD) Af Amer 100, Est GFR (MDRD) Non-Af 83, BUN/Creatinine Ratio 11.5, Glucose 115 H, Calcium 7.7 L, Phosphorus 2.5, Magnesium 2.0, Total Bilirubin 0.60, AST 30, ALT 47, Alkaline Phosphatase 69, Total Protein 6.5, Albumin 2.8 L, Globulin 3.7, Albumin/Globulin Ratio 0.8 L, Triglycerides 55, Cholesterol 70, LDL Cholesterol 32, VLDL Cholesterol 11, HDL Cholesterol 27 L, TSH 1.13 08/13/20 05:42: Hemoglobin A1c 5.9 H 08/13/20 06:14: POC Glucose 110 08/13/20 11:23: POC Glucose 119 H Current Medications Acetaminophen (Acetaminophen 325 Mg Tablet) 650 mg PO Q6H PRN PRN PRN Reason: Pain Score 1-10/Temp > 100.7 F Al Hydroxide/Mg Hydroxide (Mag Hydrox/Al Hydrox/Simeth 30 Ml Udc) 30 ml PO Q6H PRN PRN PRN Reason: Gastric Burning Albuterol Sulfate (Albuterol 2.5 Mg/3 Ml Vial.Neb.) 2.5 mg INHALATION Q2H PRN PRN PRN Reason: SOB/Wheezing Amlodipine Besylate (Amlodipine 10 Mg Tablet) 10 mg PO DAILY [facility] Last Admin: 08/13/20 06:18 Dose: 10 mg Documented by: Aripiprazole (Aripiprazole 5 Mg Tablet) 5 mg PO DAILY [facility] Last Admin: 08/13/20 08:36 Dose: 5 mg Documented by: Aspirin (Aspirin E.C. 81 Mg Tablet) 81 mg PO DAILY@0800 [facility] Last Admin: 08/13/20 06:19 Dose: 81 mg Documented by: Atorvastatin Calcium (Atorvastatin Calcium 80 Mg Tablet) 80 mg PO QHS [facility] Last Admin: 08/12/20 21:32 Dose: 80 mg Documented by: Insulin Human Lispro (Insulin Lispro 100 Unit/Ml Insuln.Pen) 0 unit SC ACHS [facility]; Protocol Last Admin: 08/13/20 12:20 Dose: Not Given Documented by: Melatonin (Melatonin 3 Mg Tablet) 3 mg PO QHS PRN PRN PRN Reason: INSOMNIA Metoprolol Tartrate (Metoprolol Tartrate 25 Mg Tablet) 25 mg PO BID [facility] Last Admin: 08/13/20 06:18 Dose: 25 mg Documented by: Nitroglycerin (Nitroglycerin (Inpatient Use) 0.4 Mg Tab.Subl) 0.4 mg SL Q5M PRN PRN Reason: CARDIAC/CHEST PAIN Ondansetron HCl (Ondansetron 4 Mg/2 Ml Vial) 4 mg IV Q8H PRN PRN PRN Reason: NAUSEA/VOMITING Pantoprazole Sodium (Pantoprazole Sodium 20 Mg Tablet) 20 mg PO DAILY [facility] Last Admin: 08/13/20 08:36 Dose: 20 mg Documented by: Senna/Docusate Sodium (Senna/Docusate Sodium 1 Tablet) 2 tablet PO BID PRN PRN PRN Reason: Constipation Sodium Chloride (0.9% Saline Lock 10 Ml Syringe) 10 - 40 ml IV UD PRN PRN Reason: SALINE FLUSH Trimethoprim/Sulfamethoxazole ([facility]) [facility] Last Admin: 08/13/20 08:36 Dose: 2 tablet Documented by: STROKE Vital Signs/Narrative: Vital Signs Temp Pulse Resp BP Pulse Ox 08/13/20 12:09 98.4 F 89 18 104/76 100 Assessment/Plan This patient was seen in conjunction with Noble Davalos PA-C. I have independently interviewed and examined the patient and reviewed pertinent historical, laboratory, and other data. Please refer to Noble Davalos PA-C's note for details of this patient's presentation, findings, and recommendations. I have reviewed Noble Davalos PA-C's note and concur with documented findings. In brief, patient is a 44-year-old gentleman who presented with chest pain and shortness of breath of several days duration. EKG obtained on admission demonstrated left bundle branch block. Patient was also found to have forearm abscess secondary to IVDU underwent incision and drainage with cultures sent. Patient admitted to a monitored bed with consultation placed to cardiology. Plan for patient to undergo stress test on 08/14/2020 Physical Examination: GENERAL: cooperative HEENT: Atraumatic; EYES; Anicteric, Normal Conjunctiva NECK; supple, normal thyroid, RESPIRATORY: Diminished to auscultation CARDIOVASCULAR: Regular S1 S2, GI: soft, normoactive bowel sounds, : No Renal angle tenderness; EXTREMITIES: Left forearm abscess MUSCULOSKELETAL: no muscle waisting NEURO: Awake; no lateralizing signs. SKIN: No Rash PSYCH; Flat affect Assessment: 1. Chest pain 2. Left bundle branch block ? New onset 3. Left forearm abscess secondary to IV drug use 4. Polysubstance abuse 5. Obesity with BMI of 37.7 6. Hypokalemia Recommendations: 1. I have discussed the results of my overview and impressions with the patient 2. Options for management were reviewed OBSV E&M: [id number] Subsequent observation care L3
[2020-08-13 17:30] LABS: Bedside Glucose 117 mg/dL (70-110)
[2020-08-13] MEDS: Atorvastatin Calcium 80 MG Tablet PO (21:13)
[2020-08-13] MEDS: Acetaminophen 325 MG Tablet 650 MG PO (21:13)
[2020-08-13 22:20] LABS: Bedside Glucose 156 mg/dL (70-110)
[2020-08-13] MEDS: DiphenhydrAMINE 25 MG Capsule 50 MG PO (22:32)
[2020-08-14] VITALS (19 sets, daily range): BP systolic 102–125; BP diastolic 62–91; PULSE 77–97; RESP 14–20; TEMP 36.2–37; O2SAT 95–99
[2020-08-14 04:21] LABS: Bedside Glucose 104 mg/dL (70-110)
--- NOTE | 2020-08-14 05:55 | EKG12_ITS ---
Test Reason : AM EKG Blood Pressure : / mmHG Vent. Rate : 084 BPM Atrial Rate : 084 BPM P-R Int : 146 ms QRS Dur : 164 ms QT Int : 448 ms P-R-T Axes : 063 060 195 degrees QTc Int : 529 ms Normal sinus rhythm Possible Left atrial enlargement Left bundle branch block Abnormal ECG When compared with ECG of 12-AUG-2020 14:34, No significant change was found Confirmed by DEDE CHICAS, ANNE ([id number]), desk editor LONNY HERCULES ([id number]) on 08/20/2020 10:29:44 AM Referred By: BARNEY Confirmed By:ANNE AGUAYO MD
[2020-08-14] MEDS: Aspirin E.C. 81 MG Tablet PO (06:09)
[2020-08-14] MEDS: Metoprolol Tartrate 25 MG Tablet PO (06:09)
[2020-08-14] MEDS: amLODIPine 10 MG Tablet PO (06:09)
[2020-08-14 06:15] LABS: Bedside Glucose 101 mg/dL (70-110)
--- NOTE | 2020-08-14 06:46 | NURSING ---
Report called to environmental laboratory technician at this time. REBECCA Henderson
--- NOTE | 2020-08-14 07:56 | CASEMGMT ---
According to the [facility] website, the following are in-network tertiary facilities: [facility], [place], [facility], [facility], [facility], [employer], and . Neli FERNANDEZ CM
--- NOTE | 2020-08-14 08:31 | CL.D_ITS ---
Patient Name: REBEKAH YEAGER Study Date: 08/14/2020 Performing: Surya Viera MD Ht: 72 inches 183 cm : 1975 Wt: 278.1 lbs 126 kg Age: 44 Gender: male BSA: 2.45 PROCEDURE(S) PERFORMED [id number] CLINICAL PROFILE AND INDICATIONS Indications: Suspected CAD, Cardiomyopathy Heart Failure: None Stress/Imaging Stress/Image Study Performed: No Angina Classification Anginal Classification w/in 2 Weeks: Anginal Equivalent Dyspnea CAD Presentations: Other: chest pain / shortness of breath CONCLUSIONS Elevated Left Ventricular End Diastolic Pressure Global LV systolic dysfunction- Severe LVEF: by LV gram 20 % Normal coronary arteries RECOMMENDATIONS Risk factor modification Medical therapy DESCRIPTION OF PROCEDURE The patient arrived to the procedure lab. The risks and benefits of the procedure as well as a full d escription of our services here and current unavailability of surgical backup were fully explained to the patient and/or their significant other prior to the catheterization. The Timeout was completed, verifying the correct patient and procedure. The patient's procedural site was prepped and draped in the usual fashion. Local anesthetic was given subcutaneously to right radial region with Lidocaine 2% . Using a modified Seldinger technique, arterial access was obtained via the right radial artery, a 6 Fr sheath was inserted. Left Coronary Artery selective angiography was performed in multiple views u sing a 5 Fr. 4.0 [place] catheter. Left Ventriculography was performed in MYLES projection using a 5 Fr. Pigtail catheter. LV to AO pullback pressures were then recorded.The arterial sheath was pulled and a TR Band was applied for hemostasis CORONARY ANGIOGRAPHY DOMINANCE: Co- Dominant LEFT HEART ASSESSMENT Left Ventricular Ejection Fraction: by LV Gram 20 % Global Hypokinesis - Severe Elevated Left Ventricular End Diastolic Pressure LVEDP: 32 mmHg LEFT MAIN: Angiographically normal LEFT ANTERIOR DESCENDING ARTERY: Angiographically normal CIRCUMFLEX ARTERY: Angiographically normal RIGHT CORONARY ARTERY: Angiographically normal AORTIC ROOT: Angiographically normal COMPLICATIONS No Complications PROCEDURE MEDICATIONS Fentanyl 50 mcg IV Versed 1 mg IV Oxygen: 2 L/min via nasal cannula Oxygen: 3 L/min via nasal cannula Heparin diluted in 23cc Heparinized saline. Patient given 10cc IA of this solution. 08/14/2020 07:37: 24 Verapamil 2.5mg, Ntg 100mcgs, 2000 units of Heparin diluted in 23cc Heparinized saline. Patient give n 10cc IA of this solution. 08/14/2020 07:37:24 SUMMARY OF HEMODYNAMIC DATA Time AIR REST ECG 07:08:48 AO 99/77 (88) SA 07:42:18 LV 111/10, 36 07:58:39 LV 115/5, 32 07:58:45 LV 121/9, 34 07:59:49 LV 117/6, 37 07:59:55 LVp 115/3, 36 08:00:00 AOp 116/81 (97) 08:00:05 Signed By Surya Viera MD On 08/14/2020 08:31:04 Surya Viera MD
--- NOTE | 2020-08-14 08:56 | CASEMGMT ---
CHINYERE met with patient. Introduced self and role at [facility]. SW asked patient if he needs any resources for his drug use. He said he did not need any help. He said he can quit anytime. His girlfriend used so he did too. She needs the help more than him. He said he can quit anytime. CHINYERE told him if he changes his mind to request CHINYERE. Neli OG
[2020-08-14] MEDS: Pantoprazole Sodium 20 MG Tablet PO (10:12)
[2020-08-14] MEDS: Carvedilol 3.125 MG TABLET PO ×2 (10:12→22:04)
[2020-08-14] MEDS: Smz/Tmp Ds Tablet 2 TABLET PO ×2 (10:12→16:38)
[2020-08-14] MEDS: ARIPiprazole 5 MG Tablet PO (10:12)
[2020-08-14 11:56] LABS: Bedside Glucose 198 mg/dL (70-110)
[2020-08-14] MEDS: Insulin Lispro 100 UNIT/ML INSULN.PEN SC ×2 (11:58→16:38)
--- NOTE | 2020-08-14 12:01 | PN_ITS ---
<Rebekah Wiley PSYCHIATRIC SPECIALIST - Last Filed: 08/14/20 12:10> Patient Problems: Active and Suspected Problems Chest pain (Acute) Hypokalemia (Acute) Abscess (Acute) LBBB (left bundle branch block) (Acute) Subjective: Patient seen and examined. Underwent heart cath this morning which showed normal coronary arteries, severe systolic dysfunction with EF 20%. Patient denies current symptoms or complaints. - Physical Exam Vitals/I&O's: Vital Signs Temp Pulse Resp BP Pulse Ox 98.5 F 86 16 109/69 98 08/14/20 11:12 08/14/20 11:12 08/14/20 11:12 08/14/20 11:12 08/14/20 11:12 Oxygen Delivery Method Room Air Weight: 277 lb 11.2 oz Body Mass Index (BMI) 37.6 Intake and Output for Last 24 Hours 08/12/20 08/13/20 08/14/20 23:59 23:59 23:59 Intake Total 660 / 660 1080 / 1080 240 / 240 Balance 660 / 660 1080 / 1080 240 / 240 General: Alert, Oriented x3, Cooperative HEENT: Atraumatic, PERRLA, EOMI, Normocephalic, - - Right eye blepharitis/stye. Neck: Supple, No JVD, Negative Carotid Bruits Lungs: Clear to auscultation, Normal air movement Cardiovascular: Regular rate, No murmurs Abdomen: Bowel Sounds Present, Soft, Non Tender Extremities: No clubbing, No cyanosis, No edema, Capillary Refill Less than 3 Seconds Skin: No rashes, No breakdown, - - Left arm abscess status post I&D, dressing intact. Musculoskeletal: No Tenderness to Palpation of Joints or Extremities Neurological: Cranial nerves II-XII grossly intact, Neuro grossly intact Psych/Mental Status: Normal Affect, Appropriate Microbiology Past 72 Hours 08/12/20 16:30 Wound Abcess - Arm Gram Stain - Final 08/12/20 16:30 Wound Abcess - Arm Anaerobic Culture - Preliminary Checking for anaerobes, further studies to follow. 08/12/20 11:40 Mucosa - Nose SARS-CoV-2 Antigen (Rapid) - Final Laboratory Results 08/13/20 17:11: POC Glucose 117 H 08/13/20 21:15: POC Glucose 156 H 08/14/20 04:18: POC Glucose 104 08/14/20 06:09: POC Glucose 101 08/14/20 11:48: POC Glucose 198 H Current Medications Acetaminophen (Acetaminophen 325 Mg Tablet) 650 mg PO Q6H PRN PRN PRN Reason: Pain Score 1-10/Temp > 100.7 F Last Admin: 08/13/20 21:13 Dose: 650 mg Documented by: Al Hydroxide/Mg Hydroxide (Mag Hydrox/Al Hydrox/Simeth 30 Ml Udc) 30 ml PO Q6H PRN PRN PRN Reason: Gastric Burning Albuterol Sulfate (Albuterol 2.5 Mg/3 Ml Vial.Neb.) 2.5 mg INHALATION Q2H PRN PRN PRN Reason: SOB/Wheezing Amlodipine Besylate (Amlodipine 10 Mg Tablet) 10 mg PO DAILY [facility] Last Admin: 08/14/20 06:09 Dose: 10 mg Documented by: Aripiprazole (Aripiprazole 5 Mg Tablet) 5 mg PO DAILY [facility] Last Admin: 08/14/20 10:12 Dose: 5 mg Documented by: Aspirin (Aspirin E.C. 81 Mg Tablet) 81 mg PO DAILY@0800 [facility] Last Admin: 08/14/20 06:09 Dose: 81 mg Documented by: Carvedilol (Carvedilol 3.125 Mg Tablet) 3.125 mg PO BID [facility] Last Admin: 08/14/20 10:12 Dose: 3.125 mg Documented by: Diphenhydramine HCl (Diphenhydramine 25 Mg Capsule) 50 mg PO BID PRN PRN PRN Reason: ITCHING Last Admin: 08/13/20 22:32 Dose: 50 mg Documented by: Sodium Chloride () 1,000 mls @ 0 mls/hr IV .Q0M [facility] Sodium Chloride () 1,000 mls @ 50 mls/hr IV .Q20H [facility] Stop: 08/14/20 12:59 Last Admin: 08/14/20 10:06 Dose: Not Given Documented by: Insulin Human Lispro (Insulin Lispro 100 Unit/Ml Insuln.Pen) 0 unit SC [facility]; Protocol Last Admin: 08/14/20 11:58 Dose: 2 u Documented by: Melatonin (Melatonin 3 Mg Tablet) 3 mg PO QHS PRN PRN PRN Reason: INSOMNIA Nitroglycerin (Nitroglycerin (Inpatient Use) 0.4 Mg Tab.Subl) 0.4 mg SL Q5M PRN PRN Reason: CARDIAC/CHEST PAIN Ondansetron HCl (Ondansetron 4 Mg/2 Ml Vial) 4 mg IV Q8H PRN PRN PRN Reason: NAUSEA/VOMITING Pantoprazole Sodium (Pantoprazole Sodium 20 Mg Tablet) 20 mg PO DAILY [facility] Last Admin: 08/14/20 10:12 Dose: 20 mg Documented by: Senna/Docusate Sodium (Senna/Docusate Sodium 1 Tablet) 2 tablet PO BID PRN PRN PRN Reason: Constipation Sodium Chloride (0.9% Saline Lock 10 Ml Syringe) 10 - 40 ml IV UD PRN PRN Reason: SALINE FLUSH Trimethoprim/Sulfamethoxazole (Smz/Tmp Ds Tablet) 2 tablet PO BIDCM [facility] Last Admin: 08/14/20 10:12 Dose: 2 tablet Documented by: Medical Necessity - Tobacco Use Smoking Status: Former smoker Tobacco Use: Cigarettes - Quit 3 weeks ago Assessment/Plan All Active Problems Chest pain (Acute) Hypokalemia (Acute) Abscess (Acute) LBBB (left bundle branch block) (Acute) 1. Cardiomyopathy-patient underwent heart cath which demonstrated normal coronary arteries, severe systolic dysfunction with LV gram 20%. Plan for medical therapy. Advised on substance use cessation. 2. Left bundle branch block-suspected new. Echocardiogram demonstrates an EF of 25%, mild to moderate mitral valve insufficiency. Heart cath as noted above. 3. Left forearm abscess-secondary to IV drug use. Status post I&D 08/12/2020. On Bactrim DS. Await final cultures. 4. Hypertension-stable, continue amlodipine. 5. Type 2 diabetes mellitus-metformin on hold. Accu-Cheks with sliding scale insulin. 6. Polysubstance abuse/IV drug use-declines [employer] consult. Resources offered. 7. GERD-continue PPI. 8. Bipolar disorder-on Abilify. 9. Obesity-encouraged diet lifestyle modifications. DVT prophylaxis-SCDs, Lovenox Discharge planning: Home pending final wound cultures. This patient was seen by CATERINA Reeves under the supervision of Dr. Escalante. <Richard Escalante - Last Filed: 08/14/20 13:56> - Physical Exam Vitals/I&O's: Vital Signs Temp Pulse Resp BP Pulse Ox 97.8 F 81 17 119/70 98 08/14/20 12:08 08/14/20 12:08 08/14/20 12:08 08/14/20 12:08 08/14/20 12:08 Oxygen Delivery Method Room Air Weight: 125.963 kg Body Mass Index (BMI) 37.6 Intake and Output for Last 24 Hours 08/12/20 08/13/20 08/14/20 23:59 23:59 23:59 Intake Total 660 / 660 1080 / 1080 240 / 240 Balance 660 / 660 1080 / 1080 240 / 240 Microbiology Past 72 Hours 08/12/20 16:30 Wound Abcess - Arm Gram Stain - Final 08/12/20 16:30 Wound Abcess - Arm Anaerobic Culture - Preliminary Checking for anaerobes, further studies to follow. 08/12/20 11:40 Mucosa - Nose SARS-CoV-2 Antigen (Rapid) - Final Laboratory Results 08/13/20 17:11: POC Glucose 117 H 08/13/20 21:15: POC Glucose 156 H 08/14/20 04:18: POC Glucose 104 08/14/20 06:09: POC Glucose 101 08/14/20 11:48: POC Glucose 198 H Current Medications Acetaminophen (Acetaminophen 325 Mg Tablet) 650 mg PO Q6H PRN PRN PRN Reason: Pain Score 1-10/Temp > 100.7 F Last Admin: 08/13/20 21:13 Dose: 650 mg Documented by: Al Hydroxide/Mg Hydroxide (Mag Hydrox/Al Hydrox/Simeth 30 Ml Udc) 30 ml PO Q6H PRN PRN PRN Reason: Gastric Burning Albuterol Sulfate (Albuterol 2.5 Mg/3 Ml Vial.Neb.) 2.5 mg INHALATION Q2H PRN PRN PRN Reason: SOB/Wheezing Amlodipine Besylate (Amlodipine 10 Mg Tablet) 10 mg PO DAILY [facility] Last Admin: 08/14/20 06:09 Dose: 10 mg Documented by: Aripiprazole (Aripiprazole 5 Mg Tablet) 5 mg PO DAILY [facility] Last Admin: 08/14/20 10:12 Dose: 5 mg Documented by: Aspirin (Aspirin E.C. 81 Mg Tablet) 81 mg PO DAILY@0800 [facility] Last Admin: 08/14/20 06:09 Dose: 81 mg Documented by: Carvedilol (Carvedilol 3.125 Mg Tablet) 3.125 mg PO BID [facility] Last Admin: 08/14/20 10:12 Dose: 3.125 mg Documented by: Diphenhydramine HCl (Diphenhydramine 25 Mg Capsule) 50 mg PO BID PRN PRN PRN Reason: ITCHING Last Admin: 08/13/20 22:32 Dose: 50 mg Documented by: Sodium Chloride () 1,000 mls @ 0 mls/hr IV .Q0M [facility] Insulin Human Lispro (Insulin Lispro 100 Unit/Ml Insuln.Pen) 0 unit SC ACHS [facility]; Protocol Last Admin: 08/14/20 11:58 Dose: 2 u Documented by: Melatonin (Melatonin 3 Mg Tablet) 3 mg PO QHS PRN PRN PRN Reason: INSOMNIA Nitroglycerin (Nitroglycerin (Inpatient Use) 0.4 Mg Tab.Subl) 0.4 mg SL Q5M PRN PRN Reason: CARDIAC/CHEST PAIN Ondansetron HCl (Ondansetron 4 Mg/2 Ml Vial) 4 mg IV Q8H PRN PRN PRN Reason: NAUSEA/VOMITING Pantoprazole Sodium (Pantoprazole Sodium 20 Mg Tablet) 20 mg PO DAILY [facility] Last Admin: 08/14/20 10:12 Dose: 20 mg Documented by: Senna/Docusate Sodium (Senna/Docusate Sodium 1 Tablet) 2 tablet PO BID PRN PRN PRN Reason: Constipation Sodium Chloride (0.9% Saline Lock 10 Ml Syringe) 10 - 40 ml IV UD PRN PRN Reason: SALINE FLUSH Trimethoprim/Sulfamethoxazole (Smz/Tmp Ds Tablet) 2 tablet PO BIDCM [facility] Last Admin: 08/14/20 10:12 Dose: 2 tablet Documented by: Assessment/Plan This patient was seen in conjunction with CATERINA Reeves. I have independently interviewed and examined the patient and reviewed pertinent historical, laboratory, and other data. Please refer to ADIEL Reeves's note for details of this patient's presentation, findings, and recommendations. I have reviewed CATERINA Reeves's note and concur with documented findings. In brief, patient is a 44-year-old gentleman who presented with chest pain and shortness of breath of several days duration. EKG obtained on admission demonstrated left bundle branch block. Patient was also found to have forearm abscess secondary to IVDU underwent incision and drainage with cultures sent. Patient admitted to a monitored bed with consultation placed to cardiology. Plan for patient to undergo stress test on 08/14/2020 08/14/2020; patient underwent left heart catheterization instead of the stress test. Patient was found to have cardiomyopathy with EF 85% with no hemodynamically significant obstructive lesions. Case was discussed with cardiology optimization of medical therapy advised Physical Examination: GENERAL: cooperative HEENT: Atraumatic; stye involving the right eye EYES; Anicteric, Normal Conjunctiva NECK; supple, normal thyroid, RESPIRATORY: Diminished to auscultation CARDIOVASCULAR: Regular S1 S2, GI: soft, normoactive bowel sounds, : No Renal angle tenderness; EXTREMITIES: Left forearm abscess MUSCULOSKELETAL: no muscle waisting NEURO: Awake; no lateralizing signs. SKIN: No Rash PSYCH; Flat affect Assessment: 1. Chest pain 2. Left bundle branch block ? New onset 3. Left forearm abscess secondary to IV drug use 4. Polysubstance abuse 5. Obesity with BMI of 37.7 6. Hypokalemia 7. Nonischemic cardiomyopathy Recommendations: 1. I have discussed the results of my overview and impressions with the patient 2. Options for management were reviewed Inpatient E&M: [id number] [facility] L[facility]
--- NOTE | 2020-08-14 12:20 | NURSING ---
STUDENT CHARTING REVIEWED BY THIS RN.
--- NOTE | 2020-08-14 13:47 | PN.CARD_ITS ---
Subjectve: The patient underwent diagnostic cardiac catheterization earlier this day. He appears to be resting comfortably. Objective: Vital Signs Temp Pulse Resp BP Pulse Ox 97.8 F 81 17 119/70 98 08/14/20 12:08 08/14/20 12:08 08/14/20 12:08 08/14/20 12:08 08/14/20 12:08 Oxygen Delivery Method Room Air Weight: 277 lb 11.2 oz Body Mass Index (BMI) 37.6 Intake and Output for Last 24 Hours 08/12/20 08/13/20 08/14/20 23:59 23:59 23:59 Intake Total 660 / 660 1080 / 1080 240 / 240 Balance 660 / 660 1080 / 1080 240 / 240 General: Awake, Alert, Oriented x 3, Cooperative, No Acute Distress, Obese HEENT: Atraumatic, Normocephalic, PERRL, EOMI, Sclera Non Icteric Neck: Supple, Good ROM, No JVD Lungs: Clear to auscultation Cardiovascular: Regular Rhythm, Normal S1, Normal S2 Vascular: Normal Radial Pulses Abdomen: Bowel Sounds Present, Soft Extremities: No edema Neurological: No Focal Motor or Sensory Deficit Psych/Mental Status: Appropriate Rhythm: Sinus rhythm Medical Necessity - Tobacco Use Smoking Status: Former smoker Tobacco Use: Cigarettes - Quit 3 weeks ago Assessment/Plan 1. Chest pain The patient presented with chest pain. Based upon the patient's diagnostic cardiac catheterization it does not appear to be related to underlying CAD. 2. Cardiomyopathy: Non-CAD related The patient underwent diagnostic cardiac catheterization. His left ventricular systolic function was globally depressed with an estimated LVEF of 20%. His coronary anatomy appeared to be angiographically normal. Thus he appears to have a non-CAD related cardiomyopathy. He will need continued medical management. His beta-josef will be changed from metoprolol tartrate to carvedilol. If his blood pressure tolerates this t hen the dose can be advanced as tolerated and he can have additional agents such as LEATHA inhibitor's or ARB's or Entresto. Over time if his LV systolic function/LVEF does not improve then he would need to be considered, based upon his diagnosis and his left bundle branch block pattern, for a biventricular ICD. However prior to such an event occurring it would be thought that he would have to demonstrate that he would be free of illicit drug substances, etc., otherwise the risk of placing an ICD and then subsequent having an ICD related infection that would lead to an ICD explant procedure would be of concern. 3. Left bundle branch block pattern It appears that this goes along with his non-CAD related cardiomyopathy. 4. Hypertension He reportedly has hypertension. His blood pressure will need to be followed. His medicines will need to be adjusted accordingly. 5. Diabetes mellitus This does increase his cardiovascular risks. He will continue evaluation care per internal medicine. 6. IV drug abuse/methamphetamine abuse/THC use The patient has multiple illicit substance abuses demonstrated by his history and his objective findings. He is undergoing evaluation care by internal medicine for such and being monitored for withdrawal. 7. Abscess He does have a lesion on his left arm. It does raise concerns of an abscess. Apparently this is reported where he performs IV drug use injections. At the present time he is being evaluated by internal medicine and general surgery. 8. GERD He has a history of GERD. He will continue evaluation care as deemed appropriate. 9. Bipolar He has a diagnosis of being bipolar. Again he will need evaluation care per internal medicine. 10. Obesity Unfortunately he is obese. He does need dietary modification, etc., to try and bring his weight under better control. The patient's case has been previously discussed and reviewed with Dr. Escalante. This note was generated using a voice recognition system and there may be incorrect words, spelling or punctuation that were not noted when reviewing the office note prior to saving.
[2020-08-14 16:45] LABS: Bedside Glucose 207 mg/dL (70-110)
[2020-08-14 22:10] LABS: Bedside Glucose 136 mg/dL (70-110)
[2020-08-15 03:00] VITALS: PULSE 91
[2020-08-15] MEDS: busPIRone 5 MG Tablet 10 MG PO (03:37)
[2020-08-15 03:39] VITALS: BP 121/81; PULSE 88; RESP 16; TEMP 36.3; O2SAT 100
[2020-08-15 06:01] LABS: Absolute Lymphocyte Count 1.86 X10^3/uL (0.83-4.51); Absolute Neutrophil Count 6.3 X10^3/uL (2.0-7.7); Basophil# 0.03 X10^3/uL; Basophil% 0.3 % (0-1); Eosinophil# 0.36 X10^3/uL; Eosinophils% 3.8 % (0-5); Hematocrit 37.8 % (40-54); Hemoglobin 12.1 g/dL (13.0-16.5); Lymphocyte # 1.86 X10^3/ul (4.0); Lymphocyte % 19.9 % (19-41); Mean Corpuscular Hgb 27.9 pg (27.0-32.0); Mean Corpuscular Volume 87.1 fL (80-94); Mean Platelet Vol. 10.5 fl (6.2-12.0); Monocyte# 0.83 X10^3/uL; Monocyte% 8.9 % (0-10); NRBC Flagged by Analyzer 0 % (0-5); Neutrophil # 6.25 X10^3/uL (2.7-7.7); Neutrophil % 66.8 % (47-70); Platelet Count 237 K/mm3 (150-450); RBC Distribution Width CV 13.3 % (11.6-14.6); RBC Distribution Width SD 41.1 fl (35.1-43.9); Red Blood Count 4.34 M/mm3 (4.6-6.2); White Blood Count 9.4 K/mm3 (4.4-11.0)
[2020-08-15 06:26] LABS: BUN 15 mg/dL (7-18); Creatinine, Serum 1.15 mg/dL (0.70-1.30); Estimated Creatinine Clearance 90.91 ml/min; Glucose 124 mg/dL (74-106)
[2020-08-15 06:27] LABS: Anion Gap 6 (5-15); Calcium,Total 8.4 mg/dL (8.5-10.1); Chloride 106 mmol/L (98-107); EST Glomerular Filtration Rate 74 mL/min (>60); Est Glom Filt Rate - Afr Amer 89 mL/min (>60); Sodium Level 137 mmol/L (136-145)
[2020-08-15 07:02] VITALS: PULSE 88
[2020-08-15 07:05] LABS: Bedside Glucose 123 mg/dL (70-110)
[2020-08-15 07:39] VITALS: O2SAT 92
[2020-08-15 11:06] VITALS: BP 119/80; PULSE 88; RESP 20; TEMP 37.1; O2SAT 97
[2020-08-15] MEDS: Aspirin E.C. 81 MG Tablet PO (11:09)
[2020-08-15] MEDS: amLODIPine 10 MG Tablet PO (11:09)
[2020-08-15] MEDS: Pantoprazole Sodium 20 MG Tablet PO (11:09)
[2020-08-15] MEDS: Smz/Tmp Ds Tablet 2 TABLET PO (11:09)
[2020-08-15] MEDS: Carvedilol 3.125 MG TABLET PO (11:09)
[2020-08-15] MEDS: ARIPiprazole 5 MG Tablet PO (11:09)
[2020-08-15 11:20] LABS: Bedside Glucose 153 mg/dL (70-110)
--- NOTE | 2020-08-15 11:51 | DCINST_ITS ---
- Discharge Diagnoses Current Active Problems: Current Active and Chronic Problems (Last Updated 08/14/20 @ 14:37 by Iesha Bolivar) Chest pain (Acute) Diabetes (Chronic) HTN (hypertension) (Chronic) Hypokalemia (Acute) Methamphetamine abuse (Chronic) IVDU (intravenous drug user) (Chronic) Tobacco abuse (Chronic) Tetrahydrocannabinol (THC) dependence (Chronic) Abscess (Acute) Obesity (BMI 30-39.9) (Chronic) GERD (gastroesophageal reflux disease) (Chronic) Bipolar 1 disorder (Chronic) LBBB (left bundle branch block) (Acute) You will use the following diet at home:: Calorie/Carbohydrate Controlled (specify 1200, 1400, etc), Cardiac Discharge Activity: Return to Normal Activity Call your doctor if you observe: Fever of 101 or Higher, Shortness of breath, Dizziness, Fainting spells, Chest pain Allergies/Adverse Reactions: Allergies promethazine [From Phenergan] Allergy (Verified 08/12/20 10:00) Rash Penicillins Adverse Reaction (Verified 08/12/20 10:00) Upset Stomach Medications to take at Discharge Amlodipine [Norvasc] 10 mg PO DAILY 08/12/20 Aripiprazole [Abilify] 5 mg PO DAILY 08/12/20 Aspirin [Aspirin, Baby] 81 mg PO DAILY@0800 08/12/20 Multivit-Min/FA/Lycopen/Lutein [Centrum Silver Men Tablet] 1 tab PO DAILY 08/12/20 Omeprazole [Prilosec] 20 mg PO DAILY 08/12/20 metFORMIN HCl [Glucophage] 1,000 mg PO BIDCM 08/12/20 Carvedilol [Coreg (Beta Estrellita)] 3.125 mg PO BID #60 tab 08/15/20 Smz/Tmp Ds [Bactrim Ds] 2 tab PO BIDCM #16 tab 08/15/20 The following prescriptions were given: Smz/Tmp Ds [Bactrim Ds] 2 tab PO BIDCM #16 tab Transmission Status: Pending to [id number] Carvedilol [Coreg (Beta Estrellita)] 3.125 mg PO BID #60 tab Transmission Status: Pending to [id number] Primary Care Physician: Kerry Salter NP, ASSISTANT CURATOR-C [Primary Care Provider] - Please follow up with your Primary Care Physician in: 1 Week Test Results: Test results from this visit will be discussed in further detail at your follow- up appointment, if applicable. Please Follow Up With: [facility] When: As scheduled Please Follow Up With: Surya Viera MD When: 2 Weeks, may see ASSISTANT CURATOR/PA Proposed Discharge Date: 08/15/20
--- NOTE | 2020-08-15 12:09 | CASEMGMT ---
Addendum entered by Neli Chase 08/15/20 13:40: [facility] spoke with patient and she scheduled an appt for him at [facility] for Tuesday08-19-20 at 1415. Neli MICHELLE CHAIN MENDER Original Note: RN told CM that patient would now like to talk with someone from [facility]. SW spoke with [facility] 3 SW, Donna Nava. She talks with the [facility] counselor and she will let her know that patient is interested in talking with her. Neli MICHELLE CHAIN MENDER
--- NOTE | 2020-08-15 12:09 | PCM.DC.SUM ---
<SaurabhRebekah RADIOLOGY PRACTITIONER ASSISTANT - Last Filed: 08/15/20 12:23> Discharge Date and Diagnosis - Problem List Patient Problems: Active and Suspected Problems (Last Updated 08/14/20 @ 14:37 by Iesha Bolivar) Chest pain (Acute) Hypokalemia (Acute) Abscess (Acute) LBBB (left bundle branch block) (Acute) Date of Admission: 08/12/20 Date of Discharge: 08/15/20 - Primary Discharge Diagnosis Acute Problems: Active Problems (Last Updated 08/14/20 @ 14:37 by Iesha Bolivar) 1. Cardiomyopathy, non-CAD related 2. Left bundle branch block 3. Left forearm abscess-secondary to IV drug use. Status post I&D 08/12/2020. 4. Hypertension 5. Type 2 diabetes mellitus 6. Polysubstance abuse/IV drug use 7. GERD 8. Bipolar disorder 9. Obesity - Secondary Discharge Diagnosis Chronic Problems: Chronic Problems (Last Updated 08/14/20 @ 14:37 by Iesha Bolivar) Diabetes (Chronic) HTN (hypertension) (Chronic) Methamphetamine abuse (Chronic) IVDU (intravenous drug user) (Chronic) Tobacco abuse (Chronic) Tetrahydrocannabinol (THC) dependence (Chronic) Obesity (BMI 30-39.9) (Chronic) GERD (gastroesophageal reflux disease) (Chronic) Bipolar 1 disorder (Chronic) Hospital Course and Treatment Imaging Results: Diagnostic Data Chest X-Ray 08/12/20 11:44 IMPRESSION: Poor inspiration with some bibasilar atelectasis. Electronically Signed: Scar Moscoso MD at 12:24 EST Tel , Service support , Chest CTA 08/12/20 12:16 IMPRESSION: 1. No CT evidence of pulmonary embolism. 2. 6 mm noncalcified left lower lobe nodule and follow-up CT is recommended in 6 months document stability. Electronically Signed: Scar Moscoso MD at 13:15 EST Tel , Service support , Dr. Viera- Cardiology Dr. Styles- surgery Operations: None Procedures: 2-D Echocardiogram, Cardiac catheterization, - - Left forearm abscess status post I&D 08/12/2020 Summary of Care Provided: The patient is a 44 year old M admitted 08/12/2020 due to chest pain. 1. Cardiomyopathy-patient underwent heart cath which demonstrated normal coronary arteries, severe systolic dysfunction with LV gram 20%. Plan for medical therapy. Advised on substance use cessation. Follow-up with cardiology in 2 weeks. Continue aspirin, carvedilol, amlodipine. 2. Left bundle branch block-suspected new secondary to #1. Echocardiogram demonstrates an EF of 25%, mild to moderate mitral valve insufficiency. Heart cath as noted above. 3. Left forearm abscess-secondary to IV drug use. Status post I&D 08/12/2020. Discharged on Bactrim DS to complete course. Final cultures pending however preliminary growing rare gram-positive cocci/rods and rare WBC. 4. Hypertension-stable, continue amlodipine. Initiated on carvedilol. 5. Type 2 diabetes mellitus-continue home metformin regimen. Hemoglobin A1c 5.9%. 6. Polysubstance abuse/IV drug use-prior to discharge, amenable to [employer] consult. Will obtain consult prior to discharge. 7. GERD-continue PPI. 8. Bipolar disorder-on Abilify. 9. Obesity-encouraged diet lifestyle modifications. General: Alert, Oriented x3, Cooperative HEENT: Atraumatic, PERRLA, EOMI, Normocephalic, Right eye blepharitis/stye. Neck: Supple, No JVD, Negative Carotid Bruits Lungs: Clear to auscultation, Normal air movement Cardiovascular: Regular rate, No murmurs Abdomen: Bowel Sounds Present, Soft, Non Tender Extremities: No clubbing, No cyanosis, No edema, Capillary Refill Less than 3 Seconds Skin: No rashes, No breakdown, - - Left arm abscess status post I&D, dressing intact. Musculoskeletal: No Tenderness to Palpation of Joints or Extremities Neurological: Cranial nerves II-XII grossly intact, Neuro grossly intact Psych/Mental Status: Normal Affect, Appropriate Patient seen and examined prior to discharge. Physical assessment as noted above. Patient is stable for discharge with follow up recommendations as noted above. This patient was seen by CATERINA Reeves under the supervision of Dr. Escalante. Patient Problems: Active and Suspected Problems (Last Updated 08/14/20 @ 14:37 by Iesha Bolivar) Chest pain (Acute) Hypokalemia (Acute) Abscess (Acute) LBBB (left bundle branch block) (Acute) - Physical Exam Vitals/I&O's: Vital Signs Temp Pulse Resp BP Pulse Ox 98.8 F 88 20 H 119/80 97 08/15/20 11:06 08/15/20 11:06 08/15/20 11:06 08/15/20 11:06 08/15/20 11:06 Oxygen Delivery Method Room Air Weight: 277 lb 11.2 oz Body Mass Index (BMI) 37.6 Intake and Output for Last 24 Hours 08/13/20 08/14/20 08/15/20 23:59 23:59 23:59 Intake Total 1080 / 1080 480 / 730 730 / 730 Balance 1080 / 1080 480 / 730 730 / 730 Microbiology Past 72 Hours 08/12/20 16:30 Wound Abcess - Arm Gram Stain - Final 08/12/20 16:30 Wound Abcess - Arm Wound Culture - Preliminary No growth-Final to follow 08/12/20 16:30 Wound Abcess - Arm Anaerobic Culture - Preliminary Checking for anaerobes, further studies to follow. 08/12/20 11:40 Mucosa - Nose SARS-CoV-2 Antigen (Rapid) - Final Laboratory Results 08/14/20 16:29: POC Glucose 207 H 08/14/20 22:02: POC Glucose 136 H 08/15/20 05:20: WBC 9.4, RBC 4.34 L, Hgb 12.1 L, Hct 37.8 L, MCV 87.1, MCH 27.9, MCHC 32.0, RDW Std Deviation 41.1, RDW Coeff of Polly 13.3, Plt Count 237, MPV 10.5, Immature Gran % (Auto) 0.300, Neut % (Auto) 66.8, Lymph % (Auto) 19.9, Burnett % (Auto) 8.9, Eos % (Auto) 3.8, Baso % (Auto) 0.3, Absolute Neuts (auto) 6.3, Absolute Lymphs (auto) 1.86, Nucleated RBC % 0 08/15/20 05:20: Sodium 137, Potassium 4.0, Chloride 106, Carbon Dioxide 25.0, Anion Gap 6, BUN 15, Creatinine 1.15, Estim Creat Clear Calc 90.91, Est GFR (MDRD) Af Amer 89, Est GFR (MDRD) Non-Af 74, BUN/Creatinine Ratio 13.0, Glucose 124 H, Calcium 8.4 L 08/15/20 06:27: POC Glucose 123 H 08/15/20 11:15: POC Glucose 153 H Current Medications Acetaminophen (Acetaminophen 325 Mg Tablet) 650 mg PO Q6H PRN PRN PRN Reason: Pain Score 1-10/Temp > 100.7 F Last Admin: 08/13/20 21:13 Dose: 650 mg Documented by: Al Hydroxide/Mg Hydroxide (Mag Hydrox/Al Hydrox/Simeth 30 Ml Udc) 30 ml PO Q6H PRN PRN PRN Reason: Gastric Burning Albuterol Sulfate (Albuterol 2.5 Mg/3 Ml Vial.Neb.) 2.5 mg INHALATION Q2H PRN PRN PRN Reason: SOB/Wheezing Amlodipine Besylate (Amlodipine 10 Mg Tablet) 10 mg PO DAILY [facility] Last Admin: 08/15/20 11:09 Dose: 10 mg Documented by: Aripiprazole (Aripiprazole 5 Mg Tablet) 5 mg PO DAILY [facility] Last Admin: 08/15/20 11:09 Dose: 5 mg Documented by: Aspirin (Aspirin E.C. 81 Mg Tablet) 81 mg PO DAILY@0800 [facility] Last Admin: 08/15/20 11:09 Dose: 81 mg Documented by: Buspirone HCl (Buspirone 5 Mg Tablet) 10 mg PO BID [facility] Last Admin: 08/15/20 03:37 Dose: 10 mg Documented by: Carvedilol (Carvedilol 3.125 Mg Tablet) 3.125 mg PO BID [facility] Last Admin: 08/15/20 11:09 Dose: 3.125 mg Documented by: Diphenhydramine HCl (Diphenhydramine 25 Mg Capsule) 50 mg PO BID PRN PRN PRN Reason: ITCHING Last Admin: 08/13/20 22:32 Dose: 50 mg Documented by: Sodium Chloride () 1,000 mls @ 0 mls/hr IV .Q0M [facility] Insulin Human Lispro (Insulin Lispro 100 Unit/Ml Insuln.Pen) 0 unit SC [facility]; Protocol Last Admin: 08/15/20 11:16 Dose: Not Given Documented by: Melatonin (Melatonin 3 Mg Tablet) 3 mg PO QHS PRN PRN PRN Reason: INSOMNIA Nitroglycerin (Nitroglycerin (Inpatient Use) 0.4 Mg Tab.Subl) 0.4 mg SL Q5M PRN PRN Reason: CARDIAC/CHEST PAIN Ondansetron HCl (Ondansetron 4 Mg/2 Ml Vial) 4 mg IV Q8H PRN PRN PRN Reason: NAUSEA/VOMITING Pantoprazole Sodium (Pantoprazole Sodium 20 Mg Tablet) 20 mg PO DAILY [facility] Last Admin: 08/15/20 11:09 Dose: 20 mg Documented by: Senna/Docusate Sodium (Senna/Docusate Sodium 1 Tablet) 2 tablet PO BID PRN PRN PRN Reason: Constipation Sodium Chloride (0.9% Saline Lock 10 Ml Syringe) 10 - 40 ml IV UD PRN PRN Reason: SALINE FLUSH Trimethoprim/Sulfamethoxazole ([facility]) [facility] Last Admin: 08/15/20 11:09 Dose: 2 tablet Documented by: Discharge Diet: Low fat/ Low Cholesterol, Carb Control Diet Discharge Activity: Return to Normal Activity Call your doctor if you observe: Fever of 101 or Higher, Shortness of breath, Dizziness, Fainting spells, Chest pain Home Medications: Medications to take at Discharge Amlodipine [Norvasc] 10 mg PO DAILY 08/12/20 Aripiprazole [Abilify] 5 mg PO DAILY 08/12/20 Aspirin [Aspirin, Baby] 81 mg PO DAILY@0800 08/12/20 Multivit-Min/FA/Lycopen/Lutein [Centrum Silver Men Tablet] 1 tab PO DAILY 08/12/20 Omeprazole [Prilosec] 20 mg PO DAILY 08/12/20 metFORMIN HCl [Glucophage] 1,000 mg PO BIDCM 08/12/20 Carvedilol [Coreg (Beta Estrellita)] 3.125 mg PO BID #60 tab 08/15/20 Smz/Tmp Ds [Bactrim Ds] 2 tab PO BIDCM #16 tab 08/15/20 Following Prescriptions Were Given to Patient: Smz/Tmp Ds [Bactrim Ds] 2 tab PO BIDCM #16 tab Transmission Status: Received by [facility]/pharmacy #[id number] Carvedilol [Coreg (Beta Estrellita)] 3.125 mg PO BID #60 tab Transmission Status: Received by [facility]pharmacy #[id number] Primary Care Physician: Kerry Salter NP, RADIOLOGY PRACTITIONER ASSISTANT-C [Primary Care Provider] - Please follow up with your Primary Care Physician in: 1 Week Please Follow Up With: [facility] When: As scheduled Please Follow Up With: Surya Viera MD When: 2 Weeks, may see RADIOLOGY PRACTITIONER ASSISTANT/PA Disposition: Home Minutes spent on discharge:: 35 Patient Condition:: Stable Medical Necessity - Tobacco Use Smoking Status: Former smoker Tobacco Use: Cigarettes - Quit 3 weeks ago Meaningful Use Info Meaningful Use Diagnoses (Choose all that apply): None applicable <Richard Escalante - Last Filed: 08/15/20 12:24> Discharge Date and Diagnosis - Primary Discharge Diagnosis Acute Problems: Active Problems (Last Updated 08/14/20 @ 14:37 by Iesha Bolivar) Chest pain (Acute) Hypokalemia (Acute) Abscess (Acute) LBBB (left bundle branch block) (Acute) - Secondary Discharge Diagnosis Chronic Problems: Chronic Problems (Last Updated 08/14/20 @ 14:37 by Iesha Bolivar) Diabetes (Chronic) HTN (hypertension) (Chronic) Methamphetamine abuse (Chronic) IVDU (intravenous drug user) (Chronic) Tobacco abuse (Chronic) Tetrahydrocannabinol (THC) dependence (Chronic) Obesity (BMI 30-39.9) (Chronic) GERD (gastroesophageal reflux disease) (Chronic) Bipolar 1 disorder (Chronic) Hospital Course and Treatment Summary of Care Provided: This patient was seen in conjunction with CATERINA Reeves. I have independently interviewed and examined the patient and reviewed pertinent historical, laboratory, and other data. Please refer to CATERINA Reeves's note for details of this patient's presentation, findings, and recommendations. I have reviewed CATERINA Reeves's note and concur with documented findings. In brief, patient is a 44-year-old gentleman who presented with chest pain and shortness of breath of several days duration. EKG obtained on admission demonstrated left bundle branch block. Patient was also found to have forearm abscess secondary to IVDU underwent incision and drainage with cultures sent. Patient admitted to a monitored bed with consultation placed to cardiology. Plan for patient to undergo stress test on 08/14/2020 08/14/2020; patient underwent left heart catheterization instead of the stress test. Patient was found to have cardiomyopathy with EF 85% with no hemodynamically significant obstructive lesions. Case was discussed with cardiology optimization of medical therapy advised Hospital course: As documented above - Physical Exam Vitals/I&O's: Vital Signs Temp Pulse Resp BP Pulse Ox 98.8 F 88 20 H 119/80 97 08/15/20 11:06 08/15/20 11:06 08/15/20 11:06 08/15/20 11:06 08/15/20 11:06 Oxygen Delivery Method Room Air Weight: 125.963 kg Body Mass Index (BMI) 37.6 Intake and Output for Last 24 Hours 08/13/20 08/14/20 08/15/20 23:59 23:59 23:59 Intake Total 1080 / 1080 480 / 730 730 / 730 Balance 1080 / 1080 480 / 730 730 / 730 Microbiology Past 72 Hours 08/12/20 16:30 Wound Abcess - Arm Gram Stain - Final 08/12/20 16:30 Wound Abcess - Arm Wound Culture - Preliminary No growth-Final to follow 08/12/20 16:30 Wound Abcess - Arm Anaerobic Culture - Preliminary Checking for anaerobes, further studies to follow. 08/12/20 11:40 Mucosa - Nose SARS-CoV-2 Antigen (Rapid) - Final Laboratory Results 08/14/20 16:29: POC Glucose 207 H 08/14/20 22:02: POC Glucose 136 H 08/15/20 05:20: WBC 9.4, RBC 4.34 L, Hgb 12.1 L, Hct 37.8 L, MCV 87.1, MCH 27.9, MCHC 32.0, RDW Std Deviation 41.1, RDW Coeff of Polly 13.3, Plt Count 237, MPV 10.5, Immature Gran % (Auto) 0.300, Neut % (Auto) 66.8, Lymph % (Auto) 19.9, [place] % (Auto) 8.9, Eos % (Auto) 3.8, Baso % (Auto) 0.3, Absolute Neuts (auto) 6.3, Absolute Lymphs (auto) 1.86, Nucleated RBC % 0 08/15/20 05:20: Sodium 137, Potassium 4.0, Chloride 106, Carbon Dioxide 25.0, Anion Gap 6, BUN 15, Creatinine 1.15, Estim Creat Clear Calc 90.91, Est GFR (MDRD) Af Amer 89, Est GFR (MDRD) Non-Af 74, BUN/Creatinine Ratio 13.0, Glucose 124 H, Calcium 8.4 L 08/15/20 06:27: POC Glucose 123 H 08/15/20 11:15: POC Glucose 153 H Current Medications Acetaminophen (Acetaminophen 325 Mg Tablet) 650 mg PO Q6H PRN PRN PRN Reason: Pain Score 1-10/Temp > 100.7 F Last Admin: 08/13/20 21:13 Dose: 650 mg Documented by: Al Hydroxide/Mg Hydroxide (Mag Hydrox/Al Hydrox/Simeth 30 Ml Udc) 30 ml PO Q6H PRN PRN PRN Reason: Gastric Burning Albuterol Sulfate (Albuterol 2.5 Mg/3 Ml Vial.Neb.) 2.5 mg INHALATION Q2H PRN PRN PRN Reason: SOB/Wheezing Amlodipine Besylate (Amlodipine 10 Mg Tablet) 10 mg PO DAILY [facility] Last Admin: 08/15/20 11:09 Dose: 10 mg Documented by: Aripiprazole (Aripiprazole 5 Mg Tablet) 5 mg PO DAILY [facility] Last Admin: 08/15/20 11:09 Dose: 5 mg Documented by: Aspirin (Aspirin E.C. 81 Mg Tablet) 81 mg PO DAILY@0800 [facility] Last Admin: 08/15/20 11:09 Dose: 81 mg Documented by: Buspirone HCl (Buspirone 5 Mg Tablet) 10 mg PO BID [facility] Last Admin: 08/15/20 03:37 Dose: 10 mg Documented by: Carvedilol (Carvedilol 3.125 Mg Tablet) 3.125 mg PO BID [facility] Last Admin: 08/15/20 11:09 Dose: 3.125 mg Documented by: Diphenhydramine HCl (Diphenhydramine 25 Mg Capsule) 50 mg PO BID PRN PRN PRN Reason: ITCHING Last Admin: 08/13/20 22:32 Dose: 50 mg Documented by: Sodium Chloride () 1,000 mls @ 0 mls/hr IV .Q0M [facility] Insulin Human Lispro (Insulin Lispro 100 Unit/Ml Insuln.Pen) 0 unit SC ACHS [facility]; Protocol Last Admin: 08/15/20 11:16 Dose: Not Given Documented by: Melatonin (Melatonin 3 Mg Tablet) 3 mg PO QHS PRN PRN PRN Reason: INSOMNIA Nitroglycerin (Nitroglycerin (Inpatient Use) 0.4 Mg Tab.Subl) 0.4 mg SL Q5M PRN PRN Reason: CARDIAC/CHEST PAIN Ondansetron HCl (Ondansetron 4 Mg/2 Ml Vial) 4 mg IV Q8H PRN PRN PRN Reason: NAUSEA/VOMITING Pantoprazole Sodium (Pantoprazole Sodium 20 Mg Tablet) 20 mg PO DAILY [facility] Last Admin: 08/15/20 11:09 Dose: 20 mg Documented by: Senna/Docusate Sodium (Senna/Docusate Sodium 1 Tablet) 2 tablet PO BID PRN PRN PRN Reason: Constipation Sodium Chloride (0.9% Saline Lock 10 Ml Syringe) 10 - 40 ml IV UD PRN PRN Reason: SALINE FLUSH Trimethoprim/Sulfamethoxazole (Smz/Tmp Ds Tablet) [facility] Last Admin: 08/15/20 11:09 Dose: 2 tablet Documented by: Inpatient E&M: [id number] [facility]
== END 2020-08-15 11:51 | disposition home or self-care (01) ==
LOC: ED 11:48 → PCU 13:52
PROVIDERS: Internal Medicine Cardiovascular Disease; Admitting Provider Internal Medicine; Emergency Provider Emergency Medicine; PCP Nurse Practitioner Family; Visit Provider Internal Medicine
DX: E07.89 Other specified disorders of thyroid (principal); R06.02 Shortness of breath; I44.7 Left bundle-branch block, unspecified; R00.0 Tachycardia, unspecified; I10 Essential (primary) hypertension; E11.9 Type 2 diabetes mellitus without complications; F15.10 Other stimulant abuse, uncomplicated; E87.6 Hypokalemia; E66.9 Obesity, unspecified; K21.9 Gastro-esophageal reflux disease without esophagitis; F12.20 Cannabis dependence, uncomplicated; F31.9 Bipolar disorder, unspecified; L02.414 Cutaneous abscess of left upper limb; R91.1 Solitary pulmonary nodule; F41.9 Anxiety disorder, unspecified; I25.10 Atherosclerotic heart disease of native coronary artery without angina pectoris; I08.1 Rheumatic disorders of both mitral and tricuspid valves; Z79.899 Other long term (current) drug therapy; Z87.891 Personal history of nicotine dependence; Z68.37 Body mass index [BMI] 37.0-37.9, adult; Z79.82 Long term (current) use of aspirin; Z79.84 Long term (current) use of oral hypoglycemic drugs; I42.8 Other cardiomyopathies
CPT/HCPCS: 10060; 36415; 71045; 71275; 80048; 80053; 80061; 80307; 82962; 83036; 83735; 84100; 84443; 84484; 85025; 85379; 86703; 86803; 87070; 87075; 87077; 87205; 87426; 93005; 93306; 93458; 94002; 99152; 99153; 99218; 99251; 99285; J7040; Q9957; Q9967; A4216; C1769; C1894; C8929; G0378; G0463

== ENCOUNTER 2021-08-21 16:33 | Emergency (ER) | payer MEDICAID, SELFPAY ==
[2021-08-21 16:33] VITALS: BP 124/92; PULSE 63; RESP 22; TEMP 36.6; O2SAT 96; BMI 38.0
[2021-08-21 16:57] LABS: Absolute Lymphocyte Count 1.12 X10^3/uL (0.83-4.51); Absolute Neutrophil Count 5.2 X10^3/uL (2.0-7.7); Basophil# 0.01 X10^3/uL; Basophil% 0.1 % (0-1); Eosinophil# 0.18 X10^3/uL; Eosinophils% 2.5 % (0-5); Hematocrit 37.5 % (40-54); Lymphocyte # 1.12 X10^3/ul (0.83-4.51); Lymphocyte % 15.8 % (19-41); Mean Corpuscular Hgb 28.2 pg (27.0-32.0); Mean Platelet Vol. 10.1 fl (6.2-12.0); Monocyte# 0.61 X10^3/uL; Monocyte% 8.6 % (0-10); NRBC Flagged by Analyzer 0 % (0-5); Neutrophil # 5.15 X10^3/uL (2.7-7.7); Neutrophil % 72.7 % (47-70); Platelet Count 233 K/mm3 (150-450); RBC Distribution Width CV 13.8 % (11.6-14.6); RBC Distribution Width SD 44.5 fl (35.1-43.9); Red Blood Count 4.26 M/mm3 (4.6-6.2); White Blood Count 7.1 K/mm3 (4.4-11.0)
[2021-08-21 17:07] LABS: Anion Gap 4 (5-15); BUN 18 mg/dL (7-18); BUN/Creat Ratio 17.3 RATIO (10-20); Calcium,Total 8.7 mg/dL (8.5-10.1); Chloride 109 mmol/L (98-107); Creatinine, Serum 1.04 mg/dL (0.70-1.30); EST Glomerular Filtration Rate 82 mL/min (>60); Est Glom Filt Rate - Afr Amer 99 mL/min (>60); Estimated Creatinine Clearance 99.49 ml/min; Glucose 160 mg/dL (74-106); Potassium 4.1 mmol/L (3.5-5.1); Sodium Level 140 mmol/L (136-145)
[2021-08-21 17:17] VITALS: RESP 18; O2SAT 96
[2021-08-21 17:22] VITALS: PULSE 90; RESP 12; O2SAT 98
--- NOTE | 2021-08-21 17:22 | EDS_ITS ---
HPI History of Present Illness Chief Complaint: Shortness of Breath Narrative Narrative: Patient presents with multiple somatic complaints but mainly shortness of breath that has had since yesterday. He states he has past medical history of CHF and is carrying 30 pounds of water weight that he developed over the last week and a half. He denies any dietary indiscretions. He also states that he has felt palpitations. He states his legs are swollen and sore his feet down to his toes. He denies any fevers or chills but has an occasional cough. He takes Lasix 20 mg orally, but does not have a band tumbler currently that he sees. He presents because of the shortness of breath, and the water weight along with palpitations. [facility] Medical History CHF (congestive heart failure) Home Medications amlodipine 10 mg PO DAILY 08/12/20 [History Last Taken 08/11/20] aripiprazole 5 mg PO DAILY 08/12/20 [History Last Taken 08/11/20] aspirin 81 mg PO DAILY@0800 08/12/20 [History Last Taken 08/12/20] metformin 1,000 mg PO BIDCM 08/12/20 [History Last Taken 08/11/20] wmeilqfu-vfx-CD-lycopen-lutein 1 tab PO DAILY 08/12/20 [History Last Taken 08/11/20] omeprazole 20 mg PO DAILY 08/12/20 [History Last Taken Unknown] carvedilol 3.125 mg PO BID #60 tab 08/15/20 [Rx Last Taken Unknown] sulfamethoxazole-trimethoprim 2 tab PO BIDCM #16 tab 08/15/20 [Rx Last Taken Unknown] Allergy/AdvReac Type Severity Reaction Status Date / Time promethazine [From Phenergan] Allergy Rash Verified 08/21/21 16:39 Penicillins AdvReac Upset Verified 08/21/21 16:39 Stomach Surgical History History of left heart catheterization (LHC) (~08/14/20) Social History Smoking Status: Former smoker ROS ROS ED ROS Narrative Constitutional: No fever, no chills. +30 pound water weight gain. This developed over the last week and a half. HEENT: No sore throat. No neck pain. No loss of vision. No rhinorrhea. Cardiovascular: No chest pain. Positive palpitations. Positive bilateral pedal edema. Respiratory: Rare cough, positive shortness of breath. Endorses dyspnea on exertion. Abdominal: No abdominal pain. No nausea. No vomiting. Genitourinary: No dysuria. No hematuria. Musculoskeletal: No myalgias. No arthralgias. Neurologic: No headaches. No dizziness. No lightheadedness. Skin: No rash. No change in color. Psychiatric: No depression. No anxiety. EXAM Physical Exam Narrative Exam Narrative: Afebrile. Vital signs noted. HEENT: Normocephalic. Atraumatic. PERRL, EOMI. Neck soft and supple. No point tenderness or step off. Cardiovascular: Regular rate and rhythm. No murmurs, rubs, or gallops appreciated. Respiratory: No tachypnea. Lungs clear to auscultation bilaterally. Gastrointestinal: Abdomen soft, nontender, with normoactive bowel sounds. No rebound or guarding. Neurological: Awake. Alert. Nonfocal, nonlateralizing. Skin: No rash. Normal color. No pallor. Musculoskeletal: Trace to +1 bilateral symmetric pedal edema. Full range of motion extremities. Const Vital Signs: 08/21/21 16:33 08/21/21 17:17 08/21/21 17:20 Temperature 97.9 F Temperature Source Temporal Pulse Rate 63 Respiratory Rate 22 H 18 Respiratory Effort Short of Breath Respiratory Depth Shallow Respiratory Pattern Normal Blood Pressure 124/92 H Blood Pressure Mean 102 Pulse Ox 96 96 Oxygen Delivery Method Room Air Room Air 08/21/21 17:22 Temperature Temperature Source Pulse Rate 90 Respiratory Rate 12 Respiratory Effort Respiratory Depth Respiratory Pattern Blood Pressure Blood Pressure Mean Pulse Ox 98 Oxygen Delivery Method Room Air MDM MDM MDM Narrative Medical decision making narrative: Comprehensive work-up was pursued. RN initiated protocol laboratory work which shows normal white count, hemoglobin stable at 12.0. Platelet count normal at 223. Electrolyte panel shows chloride 109 but a normal creatinine and normal BUN. Glucose is elevated at 160 appropriately but he has a normal anion gap/low at 4. I added a troponin and a BNP. I will also add an EKG. EKG demonstrates normal sinus rhythm at 96 bpm with a left bundle branch block but no acute ST changes/no STEMI. His troponin is negative at 16. BNP is elevated at 643. Chest x-ray interpreted by myself shows no acute process. I do not see evidence of florid CHF/pulmonary edema. His pulse ox is normal. At this point in time, he was told to increase his Lasix to 40 mg once a day for the next few days and follow-up with his band tumbler. I feel he can be discharged safely home with follow-up. Return instructions to the emergency department were reviewed. Disposition is discharged home in stable condition. Lab Data Attestation: I reviewed the patient's lab results. Labs: Laboratory Results - last 24 hr 08/21/21 08/21/21 08/21/21 16:50 16:50 16:50 WBC 7.1 RBC 4.26 L Hgb 12.0 L Hct 37.5 L MCV 88.0 MCH 28.2 MCHC 32.0 RDW Std Deviation 44.5 H RDW Coeff of Polly 13.8 Plt Count 233 MPV 10.1 Immature Gran % (Auto) 0.300 Neut % (Auto) 72.7 H Lymph % (Auto) 15.8 L [place] % (Auto) 8.6 Eos % (Auto) 2.5 Baso % (Auto) 0.1 Absolute Neuts (auto) 5.2 Absolute Lymphs (auto) 1.12 Nucleated RBC % 0 Sodium 140 Potassium 4.1 Chloride 109 H Carbon Dioxide 27.0 Anion Gap 4 L BUN 18 Creatinine 1.04 Estim Creat Clear Calc 99.49 Est GFR (MDRD) Af Amer 99 Est GFR (MDRD) Non-Af 82 BUN/Creatinine Ratio 17.3 Glucose 160 H Calcium 8.7 Troponin I High Sens 16 B-Natriuretic Peptide 08/21/21 16:50 WBC RBC Hgb Hct MCV MCH MCHC RDW Std Deviation RDW Coeff of Polly Plt Count MPV Immature Gran % (Auto) Neut % (Auto) Lymph % (Auto) [place] % (Auto) Eos % (Auto) Baso % (Auto) Absolute Neuts (auto) Absolute Lymphs (auto) Nucleated RBC % Sodium Potassium Chloride Carbon Dioxide Anion Gap BUN Creatinine Estim Creat Clear Calc Est GFR (MDRD) Af Amer Est GFR (MDRD) Non-Af BUN/Creatinine Ratio Glucose Calcium Troponin I High Sens B-Natriuretic Peptide 643.2 H Radiography Diagnostic Testing: Clinical Impression(s) from Imaging Studies Chest X-Ray 08/21/21 17:22 IMPRESSION: There are no acute findings. Electronically Signed: Warren Mcallister MD at 17:50 EDT Reading Location ID and State: [facility] / [place] , Service support , Discharge Plan Triage Chief Complaint: Shortness of Breath ED Provider: Alonzo Mulligan Dx/Rx/DC Orders Clinical Impression: [place] (dyspnea on exertion), CHF (congestive heart failure), Weight gain with edema Instructions: ED Heart Failure, Congestive (CHF) Prescriptions: No Action aspirin 81 MG tablet,chewable 81 mg PO DAILY@0800 RF: 0 amlodipine 10 MG tablet 10 mg PO DAILY RF: 0 metformin 1,000 MG tablet 1,000 mg PO BIDCM RF: 0 omeprazole 20 MG capsule 20 mg PO DAILY RF: 0 aripiprazole 5 MG tablet 5 mg PO DAILY RF: 0 shjlbhln-xsm-MC-lycopen-lutein 1 EACH tablet 1 tab PO DAILY RF: 0 sulfamethoxazole-trimethoprim 1 TABLET tablet 2 tab PO BIDCM Qty: 16 RF: 0 carvedilol 3.125 MG tablet 3.125 mg PO BID Qty: 60 RF: 0 Primary Care Provider: Linette Hopkins NP Referrals: Linette Hopkins BENEFITS CONSULTANT, BENEFITS CONSULTANT-C [Primary Care Provider] - 3-5 Days if not improving Activity Restrictions/Additional Instructions: Increase your Lasix to 40 mg once a day for the next few days. Follow-up with your band tumbler. Disposition Disposition: Home, Self Care
--- NOTE | 2021-08-21 17:22 | RAD_ITS ---
STUDY: X-RAY CHEST REASON FOR EXAM: Male, 45 years old. CHEST PAIN sob TECHNIQUE: XR Chest 1 View COMPARISON: 10/12/2020 FINDINGS: There is no demonstrated pleural abnormality. There is moderate cardiac enlargement. Normal mediastinum and brent. Normal visualized pulmonary arteries. Normal visualized aortic arch and descending thoracic aorta. Normal visualized thoracic spine. Normal visualized ribs, clavicles, and shoulders. There is no demonstrated abnormality of the visualized soft tissue structures of the upper abdomen. RAD/Chest 1 View (Portable) IMPRESSION: There are no acute findings. Electronically Signed: Warren Mcallister MD at 17:50 EDT ,
--- NOTE | 2021-08-21 17:25 | EKG12_ITS ---
Test Reason : CHF Blood Pressure : / mmHG Vent. Rate : 096 BPM Atrial Rate : 096 BPM P-R Int : 172 ms QRS Dur : 158 ms QT Int : 398 ms P-R-T Axes : 062 089 266 degrees QTc Int : 502 ms Normal sinus rhythm Left bundle branch block Abnormal ECG Confirmed by [facility] CHICAS, LILY ([id number]), magazine editor LONNY HERCULES ([id number]) on 08/24/2021 11:10:01 A M Referred By: CHAVA Confirmed By:NICKO BENTLEY MD
[2021-08-21 17:50] LABS: BNP,B-Type NATRIURETIC PEPTIDE 643.2 pg/mL (0-100)
[2021-08-21 17:51] LABS: Troponin-I HS 16 pg/mL (3.0-78.0)
[2021-08-21 19:53] VITALS: BP 96/69; PULSE 79; RESP 16; O2SAT 96
--- NOTE | 2021-08-21 19:54 | ED.RN ---
THIS NURSE REVIEWED D/C INSTRUCTIONS WITH PT. PT VERBALIZED UNDERSTANDING OF INSTRUCTIONS. IV D/C. IV CATHETER INTACT. PT TOLERATED WELL. PT DENIES FURTHER NEEDS OR QUESTIONS AT [facility]
--- NOTE | 2021-08-24 13:34 | CM.ED ---
ER RNCM DC F/u call: Called patient listed number on demographics, no answer, Vm left with this writers return contact. Seen in ER 08/21/21 and Dc'd for CHF, with increase in Lasix to 40mg daily for a few days. Katarina Marte RNCM
== END 2021-08-21 19:55 | disposition home or self-care (01) ==
PROVIDERS: Emergency Provider Emergency Medicine; PCP Clinical Nurse Specialist; Visit Provider Emergency Medicine
DX: I50.9 Heart failure, unspecified (principal); I44.7 Left bundle-branch block, unspecified; R63.5 Abnormal weight gain; Z68.38 Body mass index [BMI] 38.0-38.9, adult; Z79.82 Long term (current) use of aspirin; Z79.899 Other long term (current) drug therapy; Z87.891 Personal history of nicotine dependence
CPT/HCPCS: 71045; 80048; 83880; 84484; 85025; 93005; 94760; 99283; A4216

== ENCOUNTER 2021-08-25 07:58 | Inpatient (IN) | payer MEDICAID, SELFPAY ==
[2021-08-25] VITALS (12 sets, daily range): BP systolic 101–121; BP diastolic 67–90; PULSE 87–99; RESP 11–24; TEMP 36.4–36.8; O2SAT 96–99; BMI 40.2; BMI 39.5
--- NOTE | 2021-08-25 08:12 | EKG12_ITS ---
Test Reason : GA Blood Pressure : / mmHG Vent. Rate : 085 BPM Atrial Rate : 085 BPM P-R Int : 178 ms QRS Dur : 158 ms QT Int : 416 ms P-R-T Axes : 057 072 215 degrees QTc Int : 495 ms Normal sinus rhythm Left bundle branch block Abnormal ECG Confirmed by DEDE CHICAS, ANNE ([id number]), newspaper or periodical editor LONNY HERCULES ([id number]) on 08/27/2021 9:15:22 AM Referred By: ED Confirmed By:ANNE AGUAYO MD
--- NOTE | 2021-08-25 08:13 | EDS_ITS ---
HPI History of Present Illness Chief Complaint: General Illness Detail of Chief Complaint: Shortness of breath and abdominal bloating Informant: patient Narrative Narrative: Patient presents to the emergency department with complaint of feel ing short of breath for over a week. Patient states he was in the emergency department about a week ago and was evaluated for shortness of breath. Patient has history of CHF and tells me he ran out of his Lasix about a week ago. Patient tells me he is normally around 245 pounds and is currently at about 300 pounds. Complains of exertional dyspnea. Has had some intermittent chest discomfort. Patient also feels bloated. Complains of lower extremity edema. He tells me does not currently see a employee communications specialist. He recently moved to the area and used to be seen at [facility]. Prior similar symptoms: Yes PFSH PFSH Medical History CHF (congestive heart failure) Diabetes Sleep apnea Smoker Home Medications amlodipine 10 mg PO DAILY 08/12/20 [History Last Taken 08/11/20] aripiprazole 5 mg PO DAILY 08/12/20 [History Last Taken 08/11/20] aspirin 81 mg PO DAILY@0800 08/12/20 [History Last Taken 08/12/20] metformin 1,000 mg PO BIDCM 08/12/20 [History Last Taken 08/11/20] carvedilol 3.125 mg PO BID #60 tab 08/15/20 [Rx Last Taken Unknown] potassium chloride 10 meq PO DAILY 08/25/21 [History Last Taken Unknown] sacubitril-valsartan [Entresto] 1 tab PO BID 08/25/21 [History Last Taken Unknown] Allergy/AdvReac Type Severity Reaction Status Date / Time promethazine [From Phenergan] Allergy Rash Verified 08/25/21 08:02 Penicillins AdvReac Upset Verified 08/25/21 08:02 Stomach Surgical History History of left heart catheterization (LHC) (~08/14/20) Social History Smoking Status: Current some day smoker tobacco type: cigarettes ROS ROS ED Constitutional Constitutional ED: Reports systems reviewed and no addt'l complaints, except as documented; Denies body ache(s), change in weight or chills Eyes Eyes: Denies acute decrease in peripheral vision, change in vision, double vision or loss of vision ENT ENT ED: Reports none; Denies ear pain, lip swelling, loss taste/smell, neck pain, otalgia or sore throat Cardiovascular Cardiovascular: Reports none and chest pain; Denies abdominal pain, chest pain with activity, leg edema, lightheadedness, palpitations, rapid heart rate or syncope Respiratory/Chest Respiratory/Chest: Reports none, dyspnea and dyspnea on exertion; Denies change in mental status, dry cough, hemoptysis, shortness of breath at rest or shortness of breath with exertion Gastrointestinal Gastrointestinal: Reports none and other Details: Abdominal bloating ; Denies abdominal pain, change in stool character, diarrhea, hematemesis, hematochezia, melena, rectal bleeding or vomiting Genitourinary Genitourinary ED: Reports none; Denies abdominal discomfort, anuria, dysuria, genital pain or polyuria Musculoskeletal Musculoskeletal: Reports none; Denies arthralgias, back pain, difficulty walking, extremity pain, muscle weakness or myalgias Integumentary Reports none; Denies abscess or rash Neurologic Neurologic: Reports none; Denies abnormal gait, confusion, focal weakness, frequent falls, headache(s), loss of vision, numbness, paresthesias, radicular pain, vertigo or weakness Psychiatric Psychiatric: Reports systems reviewed and no addt'l complaints, except as do cumented and none; Denies behavioral changes, confusion, difficulty concentrating, hallucinations, suicidal ideation, tactile hallucinations or visual hallucinations Endocrine Endocrinology: Denies none, cold intolerance, excessive sweating, fatigue or heat intolerance Hematologic/Lymphatic Hematologic/Lymphatic: Reports none; Denies anemia, easy bleeding or easy bruising Allergic/Immunologic Allergic/Immunologic ED: Denies as per HPI, none, lip swelling, mouth swelling, throat swelling, tongue swelling or hives EXAM Physical Exam Const Vital Signs: 08/25/21 07:59 08/25/21 08:12 08/25/21 08:13 Temperature 98 F Temperature Source Temporal Pulse Rate 90 93 Respiratory Rate 20 H 24 H Respiratory Effort Normal Non-Labored Respiratory Pattern Normal Blood Pressure 119/87 H 117/83 H Blood Pressure Mean 97 94 Pulse Ox 98 98 Oxygen Delivery Method Room Air Room Air Positive well nourished and well developed General Appearance ED: well developed and NAD HEENT Reports TM's clear and moist mucous membranes normocephalic and atraumatic; Negative for trauma or tenderness Tympanic Membrane ED: Yes TM's clear Eyes PERRL and EOMs intact bilaterally General Eye ED: Negative for pale conjunctiva or scleral icterus Neck no lymphadenopathy, supple and no JVD General: Negative for tenderness Chest Wall inspection of chest normal and palpation of chest normal Chest: Negative for tenderness Resp normal respiratory effort and No clear to auscultation bilaterally Resp Narrative: Few rales in bases. He is got some faint expiratory wheezes bilaterally. No accessory muscle use or retractions. No significant conversational dyspnea. Slightly diminished breath sounds right lower lobe. Effort and Inspection: Negative for respiratory distress or pain with movement Auscultation: rales and wheezes; Negative for rhonchi or diminished lung sounds Cardio regular rate, regular rhythm, S1 normal heart sound, S2 normal heart sound and no murmurs Peripheral Pulses: pulses 2+ throughout GI normal to inspection, nondistended, normoactive bowel sounds, soft to palpation, non-tender, non-distended and no masses Back/Spine no CVA tenderness and no thoracic nor lumbar tenderness Extremity normal to inspection Extremity Narrative: +2 edema both lower extremities that is symmetric General Extremety ED: Yes edema General Extremity: edema Neuro oriented x3, CN's II-XII intact bilaterally, no sensory deficits noted and gait normal Sensorium / Orientation: awake, alert, oriented to person, oriented to place and oriented to time Motor Exam: strength 5/5 throughout and strength abnormal Psych mental status grossly normal Skin no rashes or lesions noted and no wounds MDM MDM MDM Narrative Medical decision making narrative: IV line established on arrival. Patient placed on a property assessment monitor. Patient was given Lasix 80 mg IV. Lab work was unremarkable other than an elevated BNP which is continue to climb. Chest x-ray was consistent with cardiomegaly and pulmonary congestion. Case will be discussed with hospitalist evaluate patient for admission for CHF exacerbation Lab Data Attestation: I reviewed the patient's lab results. Labs: Laboratory Results - last 24 hr 08/25/21 08/25/21 08/25/21 08:17 08:17 08:17 WBC 7.7 RBC 3.97 L Hgb 11.3 L Hct 35.1 L MCV 88.4 MCH 28.5 MCHC 32.2 RDW Std Deviation 45.5 H RDW Coeff of Polly 14.2 Plt Count 203 MPV 10.4 Immature Gran % (Auto) 0.400 Neut % (Auto) 73.1 H Lymph % (Auto) 13.8 L [place] % (Auto) 9.5 Eos % (Auto) 2.9 Baso % (Auto) 0.3 Absolute Neuts (auto) 5.6 Absolute Lymphs (auto) 1.06 Nucleated RBC % 0 Sodium 139 Potassium 4.1 Chloride 113 H Carbon Dioxide 23.0 Anion Gap 3 L BUN 18 Creatinine 1.06 Estim Creat Clear Calc 97.61 Est GFR (MDRD) Af Amer 97 Est GFR (MDRD) Non-Af 80 BUN/Creatinine Ratio 17.0 Glucose 137 H Calcium 8.6 Total Bilirubin 0.90 Direct Bilirubin 0.42 H AST 18 ALT 19 Alkaline Phosphatase 84 Troponin I High Sens 16 B-Natriuretic Peptide 794.4 H Total Protein 7.1 Albumin 3.3 Globulin 3.8 Radiography Chest X-Ray - ED: 1 View Diagnostic Testing: Clinical Impression(s) from Imaging Studies Chest X-Ray 08/25/21 08:30 IMPRESSION: Cardiomegaly. Mild degree of vascular congestion. Electronically Signed: Umer Davis MD at 8:47 EDT , 1 view chest x-ray obtained interpreted by myself is cardiomegaly with some mild pulmonary congestion. Radiology in agreement. EKG Initial EKG: Attestation: I personally reviewed and interpreted this EKG as follows: Comments: Sinus rhythm with a ventricular rate of 85 bpm with left bundle branch block Prior EKG tracings: available for review Prior: Unchanged Discharge Plan Dx/Rx/DC Orders Clinical Impression: CHF exacerbation Disposition Disposition: Acute Care Hospital [facility]
--- NOTE | 2021-08-25 08:30 | RAD_ITS ---
STUDY: X-RAY CHEST REASON FOR EXAM: Male, 45 years old. DYSPNEA TECHNIQUE: Single AP portable view of the chest. COMPARISON: Comparison is made with prior study dated 08/21/2021. FINDINGS: EKG electrodes are seen. Mild degree of vascular congestion. There is no demonstrated pleural abnormality. There is moderate cardiac enlargement. Normal mediastinum and brent. Normal visualized pulmonary arteries. Normal visualized aortic arch and descending thoracic aorta. Normal visualized thoracic spine. Normal visualized ribs, clavicles, and shoulders. There is no demonstrated abnormality of the visualized soft tissue structures of the upper abdomen. RAD/Chest 1 View (Portable) IMPRESSION: Cardiomegaly. Mild degree of vascular congestion. Electronically Signed: Umer Davis MD at 8:47 EDT ,
[2021-08-25 09:29] LABS: Absolute Lymphocyte Count 1.06 X10^3/uL (0.83-4.51); Absolute Neutrophil Count 5.6 X10^3/uL (2.0-7.7); Basophil# 0.02 X10^3/uL; Basophil% 0.3 % (0-1); Eosinophil# 0.22 X10^3/uL; Eosinophils% 2.9 % (0-5); Hematocrit 35.1 % (40-54); Hemoglobin 11.3 g/dL (13.0-16.5); Lymphocyte # 1.06 X10^3/ul (0.83-4.51); Lymphocyte % 13.8 % (19-41); Mean Corp Hgb Conc 32.2 g/dL (32-36); Mean Corpuscular Hgb 28.5 pg (27.0-32.0); Mean Corpuscular Volume 88.4 fL (80-94); Mean Platelet Vol. 10.4 fl (6.2-12.0); Monocyte# 0.73 X10^3/uL; Monocyte% 9.5 % (0-10); NRBC Flagged by Analyzer 0 % (0-5); Neutrophil % 73.1 % (47-70); Platelet Count 203 K/mm3 (150-450); RBC Distribution Width CV 14.2 % (11.6-14.6); RBC Distribution Width SD 45.5 fl (35.1-43.9); Red Blood Count 3.97 M/mm3 (4.6-6.2); White Blood Count 7.7 K/mm3 (4.4-11.0)
[2021-08-25 09:48] LABS: AST(SGOT) 18 U/L (15-37); Alanine Aminotransfer ALT/SGPT 19 U/L (16-61); Albumin, Serum 3.3 g/dL (3.2-5.0); Alkaline Phosphatase 84 U/L (45-117); Anion Gap 3 (5-15); BUN 18 mg/dL (7-18); Bilirubin, Direct 0.42 mg/dL (0.00-0.30); Calcium,Total 8.6 mg/dL (8.5-10.1); Chloride 113 mmol/L (98-107); Creatinine, Serum 1.06 mg/dL (0.70-1.30); EST Glomerular Filtration Rate 80 mL/min (>60); Est Glom Filt Rate - Afr Amer 97 mL/min (>60); Estimated Creatinine Clearance 97.61 ml/min; Globulin 3.8 g/dL (2.2-4.2); Glucose 137 mg/dL (74-106); Potassium 4.1 mmol/L (3.5-5.1); Protein, Total 7.1 g/dL (6.4-8.2); Sodium Level 139 mmol/L (136-145); Troponin-I HS 16 pg/mL (3.0-78.0)
[2021-08-25] MEDS: Furosemide 100 MG/10 ML Vial 80 MG IV (09:54)
[2021-08-25 09:55] LABS: BNP,B-Type NATRIURETIC PEPTIDE 794.4 pg/mL (0-100)
--- NOTE | 2021-08-25 10:11 | HP.PCM.HOS_ITS ---
HPI - General General Date of Admission: 08/25/21 HPI Narrative REBEKAH YEAGER, is a 45 M with a PMH as outlined who presents via the ED on 08/25/2021 with a complaint of general feeling of unwellness and shortness of breath and abdominal bloating. Patient has a history of heart failure and used to be seen in [facility], but hasnt seen a core paster in a while. He run out of his lasix a week ago. He admitted to some intermittent chest discomfot and lower extremity edema. He felt his weight had gone up from 245 pounds to 300 pounds. He denied any orthopnea or PND. He denied any lightheadedness, palpitations, nausea or vomiting. Review of systems is otherwise negative. Vitals were BP of 117/83, FL of 93, RR of 24 and he was saturating at 98% on room air. CBC showed wbc of 7.7, Hb of 11.3, platelets of 203. BMP showed sodium of 139, K of 4,1, and Cr of 1.06. BNP was 794.4. Chest xray showed cardiomegaly with mild degree of vascular congestion. He is being admitted to be managed for acute on chronic exacerbation of heart failure with unknown EF. [facility] Medical History CHF (congestive heart failure) Diabetes Sleep apnea Smoker Home Medications amlodipine 10 mg PO DAILY 08/12/20 [History Last Taken 08/24/21] aripiprazole 5 mg PO DAILY 08/12/20 [History Last Taken 08/11/20] aspirin 81 mg PO DAILY@0800 08/12/20 [History Last Taken 08/24/21] metformin 1,000 mg PO BIDCM 08/12/20 [History Last Taken 08/24/21] carvedilol 3.125 mg PO BID #60 tab 08/15/20 [Rx Last Taken 08/24/21] furosemide 20 mg PO BID 08/25/21 [History Last Taken Unknown] potassium chloride 10 meq PO DAILY 08/25/21 [History Last Taken 08/24/21] sacubitril-valsartan [Entresto] 0.5 tab PO BID 08/25/21 [History Last Taken Unknown] Allergy/AdvReac Type Severity Reaction Status Date / Time promethazine [From Phenergan] Allergy Rash Verified 08/25/21 08:02 Penicillins AdvReac Upset Verified 08/25/21 08:02 Stomach Family History (Updated 08/25/21 @ 11:33 by Kathrine Elizondo) Mother CVA (cerebral vascular accident) Surgical History History of left heart catheterization (LHC) (~08/14/20) Social History Smoking Status: Current some day smoker tobacco type: cigarettes ROS Constitutional Constitutional: Reports change in weight; Denies chills ENT HEENT: Denies dysphagia or headache(s) Cardiovascular Cardiovascular: Reports chest pain, dyspnea on exertion, edema, orthopnea and paroxysmal nocturnal dyspnea; Denies lightheadedness, palpitations, rapid heart rate or syncope Respiratory/Chest Respiratory/Chest: Reports dyspnea, shortness of breath at rest, shortness of breath with exertion and wheezing; Denies cough or productive cough Gastrointestinal Gastrointestinal: Denies abdominal pain, constipation, diarrhea, nausea or vomiting Genitourinary Genitourinary: Denies burning urination or dysuria Neurologic Neurologic: Denies confusion, dizziness, focal weakness, headache(s), seizures or syncope Psychiatric Psychiatric: Denies anxiety or depression Hematologic/Lymphatic Hematologic/Lymphatic: Denies anemia Vital Signs Vital Signs Vital Signs: 08/25/21 07:59 08/25/21 08:12 08/25/21 08:13 Temperature 98 F Temperature Source Temporal Pulse Rate 90 93 Respiratory Rate 20 H 24 H Respiratory Effort Normal Non-Labored Respiratory Pattern Normal Blood Pressure 119/87 H 117/83 H Blood Pressure Mean 97 94 Pulse Ox 98 98 Oxygen Delivery Method Room Air Room Air Weight Weight: 296 lb 9.6 oz Body Mass Index (BMI) 40.2 Physical Exam Const alert, oriented x3 and no apparent distress General Appearance: cooperative HEENT normocephalic, head/scalp atraumatic, hearing grossly normal bilaterally and moist oral mucous membranes Eyes PERRL, EOMs intact bilaterally and conjunctivae normal Neck no lymphadenopathy, supple and no JVD Resp Resp Narrative: mildly diminished breath sounds bibasally, no wheezes or crackles Cardio regular rate, regular rhythm, S1 normal heart sound, S2 normal heart sound and no murmurs GI normal to inspection, nondistended, normoactive bowel sounds, soft to palpation, non-tender and non-distended Extremity normal to inspection and full ROM Extremity Narrative: mild 1+ bipedal pitting edema Peripheral Pulses: Yes pulses 2+ throughout Skin no rashes or lesions noted, no wounds and skin turgor normal Neuro oriented x3 Sensorium / Orientation: awake and alert Psych affect normal Results Lab / Micro Data Result Diagrams: 08/25/21 08:17 08/25/21 08:17 Labs: Laboratory Results - last 24 hr 08/25/21 08:17: WBC 7.7, RBC 3.97 L, Hgb 11.3 L, Hct 35.1 L, MCV 88.4, MCH 28.5, MCHC 32.2, RDW Std Deviation 45.5 H, RDW Coeff of Polly 14.2, Plt Count 203, MPV 10.4, Immature Gran % (Auto) 0.400, Neut % (Auto) 73.1 H, Lymph % (Auto) 13.8 L, [place] % (Auto) 9.5, Eos % (Auto) 2.9, Baso % (Auto) 0.3, Absolute Neuts (auto) 5.6, Absolute Lymphs (auto) 1.06, Nucleated RBC % 0 08/25/21 08:17: Sodium 139, Potassium 4.1, Chloride 113 H, Carbon Dioxide 23.0, Anion Gap 3 L, BUN 18, Creatinine 1.06, Estim Creat Clear Calc 97.61, Est GFR (MDRD) Af Amer 97, Est GFR (MDRD) Non-Af 80, BUN/Creatinine Ratio 17.0, Glucose 137 H, Calcium 8.6, Total Bilirubin 0.90, Direct Bilirubin 0.42 H, AST 18, ALT 19, Alkaline Phosphatase 84, Troponin I High Sens 16, Total Protein 7.1, Albumin 3.3, Globulin 3.8 08/25/21 08:17: B-Natriuretic Peptide 794.4 H Radiology Impression Chest X-Ray 08/25/21 08:30 IMPRESSION: Cardiomegaly. Mild degree of vascular congestion. Electronically Signed: Umer Davis MD at 8:47 EDT , Assessment & Plan Assessment/Plan (1) CHF (congestive heart failure): PLAN: #Acute on chronic HFrEF * admit to PCU with telemetry * start on diuresis with lasix drip * 2D echo from 08/12/2020 showed EF of 37%,with impaired relaxation of left ventricle and RVSP of 39mmHg * get 2D echo * fluid restriction to 1500cc daily * monitor intake and output * on entresto * #Hypertension * On amlodipine and carvedilol * #Type 2 diabetes mellitus: Hold Metformin. Insulin sliding scale. Checks ACHS. DVT prophylaxis: lovenox Code status: full code * Patient counseled extensively about different types of CODE STATUS including full code, DNR CCA and DNR CCA. Patient elects to be full code. Total [id number]-[id number]-[id number] time 17 minutes. Charges/Coding Visit Charges Inpatient E&M: 77924 Init Hosp L3 Procedures Hospitalists Procedures: 77646 Advncd Care Plan 30 Min
--- NOTE | 2021-08-25 10:27 | NURSING ---
PCU KORAM CHF, DYSPNEA
--- NOTE | 2021-08-25 11:50 | ECHOCS_ITS ---
Reason For Study: CHF Procedure This was a 2D Doppler, Color Flow transthoracic echocardiogram. The study was technically difficult. Contrast injection was performed. Exam performed portable in patient room. Left Ventricle Moderately dilated left ventricle. Severe segmental systolic dysfunction (see wall motion). The estimated ejection fraction is 20 %. Diastolic function is indeterminate. Anterio-Basal: Hypokinetic. Infero-Basal: Akinetic. Basal inferoseptal: Hypokinetic. Basal anteroseptal: Hypokinetic. Mid-Anterior : Akinetic. Mid-Lateral : Hypokinetic. Mid-Posterior: Hypokinetic. Mid- Inferior: Akinetic. Mid-inferoseptal : Akinetic. Mid-anteroseptal : Akinetic. [place] : Akinetic. Right Ventricle Normal RV size. Normal systolic function. Atria The left atrium is mildly enlarged. The right atrium is mildly enlarged. No doppler evidence for ASD. Mitral Valve There is no mitral annular calcification. Normal mitral valve. Mild-Moderate (1-2+) mitral valve insufficiency. Tricuspid Valve Normal tricuspid valve. Moderate (2+) tricuspid valve insufficiency. Right ventricular systolic pressure estimated to be 39 mmHg. Aortic Valve Trisinus/trileaflet aortic valve. Mild focal aortic valve calcification. Pulmonic Valve The pulmonic valve is not well visualized. Trivial pulmonic valve insufficiency. Great Vessels Normal sized aortic root. Pericardium/Pleural Trivial pericardial effusion. There are no echocardiographic indications of cardiac tamponade. Medication Diluted definity 2ml given slow IV push to enhance endocardial definition. MMode/2D Measurements & Calculations LVIDd: 6.1 cm IVSd: 1.1 cm Ao root diam: 3.4 cm LVIDs: 5.4 cm LVPWd: 1.0 cm RVDd: 4.4 cm FS: 11.2 % LAV(MOD-bp): 77.5 ml LVAd ap4: 45.8 cm2 SV(MOD-sp4): 34.8 ml LAV(MOD-bp) Indexed: 31.0 ml/m2 LVLd ap4: 9.9 cm LAV(MOD-sp2): 73.8 ml EDV(MOD-sp4): 175.0 ml LAV(MOD-sp4): 80.2 ml EDV(sp4-el): 180.3 ml LVAs ap4: 40.5 cm2 LVLs ap4: 9.4 cm ESV(MOD-sp4): 140.2 ml ESV(sp4-el): 147.8 ml EF(MOD-sp4): 19.9 % EF(sp4-el): 18.1 % SV(sp4-el): 32.6 ml LA A4 area: 25.0 cm2 LA dimension(2D): 4.6 cm RA A4 area: 24.0 cm2 Time Measurements MV dec time: 0.14 sec Doppler Measurements & Calculations MV E max waldemar: 142.9 cm/sec Lat Peak E' Waldemar: 3.9 cm/sec Ao V2 max: 142.6 cm/sec MV A max waldemar: 44.9 cm/sec E/E' lat: 36.8 Ao max P.2 mmHg MV E/A: 3.2 LV V1 max: 73.4 cm/sec PA V2 max: 99.3 cm/sec TR max waldemar: 277.1 cm/sec LV V1 max P.2 mmHg TR max P.7 mmHg ECHO/Echo Complete W/ Contrast Interpretation Summary The study was technically difficult. Contrast injection was performed. Moderately dilated left ventricle. Severe segmental systolic dysfunction (see wall motion). The estimated ejection fraction is 20 %. The left atrium is mildly enlarged. The right atrium is mildly enlarged. Mild-Moderate (1-2+) mitral valve insufficiency. Moderate (2+) tricuspid valve insufficiency. Mild focal aortic valve calcification. Trivial pulmonic valve insufficiency. Trivial pericardial effusion. There are no echocardiographic indications of cardiac tamponade. Right ventricular systolic pressure estimated to be 39 mmHg. Diastolic function is indeterminate. Ordering Physician: Ally Brody Referring Physician: JAC LITTLE Performed By: Monisha Darby RDCS
[2021-08-25 13:05] LABS: Troponin-I HS 13 pg/mL (3.0-78.0)
[2021-08-25] MEDS: Furosemide 500 MG in Empty Viaflex 50 mL 1 EACH CONT INF (13:25)
[2021-08-25 14:59] LABS: Troponin-I HS 12 pg/mL (3.0-78.0)
[2021-08-25] MEDS: Acetaminophen 325 MG Tablet 650 MG PO (16:35)
[2021-08-25 16:41] LABS: Bedside Glucose 95 mg/dL (74-106)
[2021-08-25] MEDS: Carvedilol 3.125 MG TABLET PO (21:09)
[2021-08-25] MEDS: SACUBITRIL/VALSARTAN 24/26 MG TABLET 1 EACH PO (21:10)
[2021-08-25] MEDS: Albuterol 2.5 MG/3 ML VIAL.NEB. INHALATION (21:19)
[2021-08-25 22:06] LABS: Bedside Glucose 100 mg/dL (74-106)
[2021-08-26] VITALS (12 sets, daily range): BP systolic 92–119; BP diastolic 55–87; PULSE 73–89; RESP 12–18; TEMP 36.5–37; O2SAT 95–100
[2021-08-26 05:18] LABS: Absolute Lymphocyte Count 1.38 X10^3/uL (0.83-4.51); Absolute Neutrophil Count 3.9 X10^3/uL (2.0-7.7); Basophil# 0.02 X10^3/uL; Basophil% 0.3 % (0-1); Eosinophil# 0.27 X10^3/uL; Eosinophils% 4.2 % (0-5); Hematocrit 35.7 % (40-54); Hemoglobin 11.8 g/dL (13.0-16.5); Lymphocyte # 1.38 X10^3/ul (0.83-4.51); Lymphocyte % 21.3 % (19-41); Mean Corp Hgb Conc 33.1 g/dL (32-36); Mean Corpuscular Volume 84.8 fL (80-94); Monocyte# 0.88 X10^3/uL; Monocyte% 13.6 % (0-10); NRBC Flagged by Analyzer 0 % (0-5); Neutrophil % 60.1 % (47-70); Platelet Count 191 K/mm3 (150-450); RBC Distribution Width SD 43.6 fl (35.1-43.9); Red Blood Count 4.21 M/mm3 (4.6-6.2); White Blood Count 6.5 K/mm3 (4.4-11.0)
[2021-08-26 05:38] LABS: Anion Gap 4 (5-15); BUN 17 mg/dL (7-18); Calcium,Total 8.5 mg/dL (8.5-10.1); Chloride 102 mmol/L (98-107); EST Glomerular Filtration Rate 86 mL/min (>60); Est Glom Filt Rate - Afr Amer 104 mL/min (>60); Estimated Creatinine Clearance 103.47 ml/min; Glucose 120 mg/dL (74-106); Potassium 3.3 mmol/L (3.5-5.1); Sodium Level 139 mmol/L (136-145)
[2021-08-26 06:41] LABS: Bedside Glucose 110 mg/dL (74-106)
[2021-08-26] MEDS: Aspirin 81 MG TAB.CHEW PO (08:23)
[2021-08-26] MEDS: Carvedilol 3.125 MG TABLET PO ×2 (08:23→20:22)
[2021-08-26] MEDS: Enoxaparin 40 MG/0.4 ML Syringe SC (08:23)
[2021-08-26] MEDS: Potassium Chloride Oral Tablet 10 MEQ PO (08:23)
[2021-08-26] MEDS: amLODIPine 10 MG Tablet PO (08:23)
[2021-08-26] MEDS: SACUBITRIL/VALSARTAN 24/26 MG TABLET 1 EACH PO ×2 (08:23→20:22)
[2021-08-26] MEDS: Potassium Chloride Oral Tablet 20 MEQ 40 MEQ PO (08:39)
--- NOTE | 2021-08-26 10:40 | CASEMGMT ---
REBECCA BARONE assessment: Face to Face with patient for initial transition planning/care coordination assessment. REBECCA BARONE introduced self and role at [facility], pt voices understanding and consents to assessment. Pt is lying in bed in no distress on 2L nc. Pt is A/Ox4 and answers all questions appropriately. Care providers, pharmacy, and demographics verified/updated. 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 AD info provided. LNOK: Nuria Whitney, Living Arrangements: Pt states lives with sister, mother, sister's boyfriend, and kids in 2 story home and states no concerns at home. Pt states is independent with ADL's. Transportation: Pt states family drives and states no transportation concerns. DME/HHC: Pt states has grab bars in shower and concentrator for oxygen at bedtime, 2.5L. Pt is unsure of what his oxygen company is at this time. Pt states no need for any further DME. Pt states no hx of HHC or SNF. Pt states no concerns with going home at time of discharge. Pt is unemployed. Pt states is trying to quit smoking but still smokes daily. Pt states does not drink ETOH. Pt does have hx of drug abuse. Pt voices no further concerns/needs. CM to follow for any further discharge planning/needs. Advised pt to ask for CM if any further questions/concerns/needs arise, voices understanding. Pt goal: Home Plan[place] REBECCA BARONE
--- NOTE | 2021-08-26 10:43 | PN.HOSP_ITS ---
Subjective Subjective Patient seen and examined. His shortness of breath is much better. His urine output over the last 24 hours was at least 15L. He says he feels much much better. He denies coughing, chest pain, palpitations, dizziness, nausea or vomiting. Review of systems is otherwise negative. He has remained hemodynamically stable. Objective Data Objective Data Vital Signs: Vital Signs Temp Pulse Resp BP Pulse Ox 97.9 F 79 18 113/74 96 08/26/21 08:18 08/26/21 08:18 08/26/21 08:18 08/26/21 08:18 08/26/21 08:18 Oxygen Flow Rate (L/min) 2 Oxygen Delivery Method Room Air Weight: 291 lb 7.218 oz Body Mass Index (BMI) 39.5 Intake & Output: Intake and Output for Last 24 Hours 08/24/21 08/25/21 08/26/21 23:59 23:59 23:59 Intake Total 900 / 1197 447 / 447 Output Total 6900 / 68619 8200 / 8200 Balance -6000 / -9503 -7753 / -7753 Lab / Micro Data Result Diagrams: 08/26/21 04:57 08/26/21 04:57 Labs: Laboratory Results - last 24 hr 08/25/21 12:32: Troponin I High Sens 13 08/25/21 14:20: Troponin I High Sens 12 08/25/21 16:34: POC Glucose 95 08/25/21 21:13: POC Glucose 100 08/26/21 04:57: WBC 6.5, RBC 4.21 L, Hgb 11.8 L, Hct 35.7 L, MCV 84.8, MCH 28.0, MCHC 33.1, RDW Std Deviation 43.6, RDW Coeff of Polly 14.0, Plt Count 191, MPV 10.0, Immature Gran % (Auto) 0.500, Neut % (Auto) 60.1, Lymph % (Auto) 21.3, Yell % (Auto) 13.6 H, Eos % (Auto) 4.2, Baso % (Auto) 0.3, Absolute Neuts (auto) 3.9, Absolute Lymphs (auto) 1.38, Nucleated RBC % 0 08/26/21 04:57: Sodium 139, Potassium 3.3 L, Chloride 102, Carbon Dioxide 33.0 H , Anion Gap 4 L, BUN 17, Creatinine 1.00, Estim Creat Clear Calc 103.47, Est GFR (MDRD) Af Amer 104, Est GFR (MDRD) Non-Af 86, BUN/Creatinine Ratio 17.0, Glucose 120 H, Calcium 8.5 08/26/21 06:33: POC Glucose 110 H Radiography Diagnostic Testing: Radiology Impression Echocardiogram 08/25/21 11:50 Interpretation Summary The study was technically difficult. Contrast injection was performed. Moderately dilated left ventricle. Severe segmental systolic dysfunction (see wall motion). The estimated ejection fraction is 20 %. The left atrium is mildly enlarged. The right atrium is mildly enlarged. Mild-Moderate (1-2+) mitral valve insufficiency. Moderate (2+) tricuspid valve insufficiency. Mild focal aortic valve calcification. Trivial pulmonic valve insufficiency. Trivial pericardial effusion. There are no echocardiographic indications of cardiac tamponade. Right ventricular systolic pressure estimated to be 39 mmHg. Diastolic function is indeterminate. Ordering Physician: Ally Brody Referring Physician: JAC LITTLE Performed By: Monisah Darby RDCS Physical Exam Const alert, oriented x3 and no apparent distress General Appearance: cooperative HEENT normocephalic, head/scalp atraumatic, hearing grossly normal bilaterally and moist oral mucous membranes Head and Scalp: normocephalic Eyes PERRL, EOMs intact bilaterally and conjunctivae normal Neck no lymphadenopathy, supple and no JVD Resp Resp Narrative: mildly diminished breath sounds bibasally, no wheezes or crac kles. On room air Cardio regular rate, regular rhythm, S1 normal heart sound, S2 normal heart sound and no murmurs GI normal to inspection, nondistended, normoactive bowel sounds, soft to palpation, non-tender and non-distended Extremity normal to inspection and full ROM Extremity Narrative: mild 1+ bipedal pitting edema Peripheral Pulses: Yes pulses 2+ throughout Skin no rashes or lesions noted, no wounds and skin turgor normal Neuro oriented x3 Sensorium / Orientation: awake and alert Psych affect normal Assessment & Plan Assessment/Plan (1) CHF (congestive heart failure): PLAN: #Acute on chronic HFrEF * put out 15L of urine overnight. * in neative fluid balance by 13.7L * on lasix drip. * 2D echo showed EF of 20%, with moderately dilated LV and severe segmental systolic dysfunction. mildly enlarged left atrium. RVSP is 39mmhg. * fluid restriction to 1500cc daily * monitor intake and output * on entresto * cardiology consulted as patient will benefit from a life vest/ICD due to his low EF * #HYpokalemia: K is 3.3. Will replace and trend. #Hypertension * On amlodipine and carvedilol * #Type 2 diabetes mellitus: Hold Metformin. Insulin sliding scale. Checks ACHS. DVT prophylaxis: lovenox Code status: full code * Charges/Coding Visit Charges Inpatient E&M: 68501 Subs Hosp L2
[2021-08-26 11:16] LABS: Bedside Glucose 120 mg/dL (74-106)
--- NOTE | 2021-08-26 11:54 | CHAPLAIN ---
Type of Pastoral Visit _x__ Initial Visit ___ Follow-up Visit ___ On-call Visit ___ General Patient Visit ___ Spiritual Assessment ___ Family Conference ___ Bereavement ___ Rapid Response ___ Code Blue ___ Other (describe below) Pastoral Care Referral From _x__ Patient ___ Family ___ Nurse ___ Physician ___ Rail Car Mechanic ___ Beauty Operator Apprentice ___ Other (describe below) Sacrament/Intervention _x__ Active listening ___ Anointing ___ Episcopal ___ Bereavement ___ Communion ___ Brenda exploration ___ ___ Life review _x__ Prayer ___ Reconciliation ___ Sacrament of Sick _x__ Supportive presence ___ Wedding ___ Other (describe below) Pastoral Comments patient is pleasant and welcoming; pt reports great results from treatment to remove fluids; pt likes hospital food and appreciates the care by his report; pt is a [employer] and [employer] member that welcomes spiritual support and prayer
--- NOTE | 2021-08-26 13:45 | CASEMGMT ---
SW went to patient's room and he was sleeping. SW will try and check in with patient again regarding substance abuse. Neli Chase INSTRUCTIONAL SUPPORT TECHNICIAN MIGUEL ANGEL
--- NOTE | 2021-08-26 15:55 | CON.PCM.CA_ITS ---
Assessment & Plan Assessment/Plan (1) Cardiomyopathy: PLAN: The patient has a history of a non-CAD related cardiomyopathy. He has been reassessed with a transthoracic echocardiogram to compare to his previous noninvasive and invasive studies from August 2021. Overall his LV systolic function/LVEF appears to be similar. At the present time he will continue medical management as deemed appropriate. (2) CHF (congestive heart failure): PLAN: The patient appeared to have recurrent acute on chronic systolic mediated CHF. Again he has undergone noninvasive valuation as noted. He will continue medical therapy. (3) LBBB (left bundle branch block): PLAN: The patient has a history of an underlying left bundle branch block pattern. This appears compatible with his non-CAD related cardiomyopathy. He will continue his evaluation and care. (4) HTN (hypertension): PLAN: The patient's blood pressure needs to be monitored with adjustment of medications as deemed appropriate. Addt'l Comments Overall, the patient will continue medical therapy. He states he is seeking tertiary care center evaluation at [facility]. The patient needs to proceed with such an evaluation as to whether or not he is a candidate, at his age, for any additional advanced heart failure therapy/support as well as ICD therapy which in his case could be a biventricular ICD which may benefit his left ventricular wall motion and systolic function. The patient was encouraged to refrain from all illicit substance abuse as this could prohibit him from potentially proceeding at a tertiary care center with advanced heart failure therapy and/or ICD therapy, etc. The patient acknowledged this information. This note was generated using a voice recognition system and there may be incorrect words, spelling or punctuation that were not noted when reviewing the office note prior to saving. HPI Consult Data Date of Consult: 08/26/21 HPI Narrative HPI Narrative: REBEKAH YEAGER, is a 45 year old white male who presents for cardiovascular consultation based upon recurrent acute on chronic systolic mediated CHF superimposed upon a history of an underlying non-CAD related cardiomyopathy, left bundle branch block pattern, hypertension, diabetes mellitus, GERD, and previous history of illicit substance abuse. He underwent noninvasive and invasive cardiovascular evaluation in August [address] [facility]. He was treated medically. He states since that time he has not had any outpatient cardiovascular follow-up. He states he is hoping to be scheduled for a future outpatient [facility] cardiovascular follow-up visit. In the meantime he states that he returned to the hospital based upon increased weight which he attributes to increased fluid. He states based upon this he felt short of breath and dyspneic and a general sensation of heaviness on his chest. He did not describe any acute nausea, emesis, or diaphoresis. He did describe increased lower extremity peripheral pitting edema. He denies any ongoing history of palpitations and states there is been no near-syncope or syncope. He has been in evaluated and was found to have negative troponin I levels. His BNP level was elevated at 794.4. His ECG demonstrated sinus rhythm with a left bundle branch block pattern. He underwent a chest x-ray which suggested an element of increased pulmonary vascularity. He had a follow-up transthoracic ec hocardiogram with the results as noted below. He was treated with medical therapy with IV diuresis. He states he had significant urinary output. He notes he feels much better with respect to his chest as well as his breathing and his lower extremity edema. He states he has been refraining from illicit substance abuse other than marijuana. [facility] Medical History Cardiomyopathy CHF (congestive heart failure) Diabetes Sleep apnea Smoker Home Medications amlodipine 10 mg PO DAILY 08/12/20 [History Last Taken 08/24/21] aripiprazole 5 mg PO DAILY 08/12/20 [History Last Taken 08/11/20] aspirin 81 mg PO DAILY@0800 08/12/20 [History Last Taken 08/24/21] metformin 1,000 mg PO BIDCM 08/12/20 [History Last Taken 08/24/21] carvedilol 3.125 mg PO BID #60 tab 08/15/20 [Rx Last Taken 08/24/21] furosemide 20 mg PO BID 08/25/21 [History Last Taken Unknown] potassium chloride 10 meq PO DAILY 08/25/21 [History Last Taken 08/24/21] sacubitril-valsartan [Entresto] 0.5 tab PO BID 08/25/21 [History Last Taken Un known] Allergy/AdvReac Type Severity Reaction Status Date / Time promethazine [From Phenergan] Allergy Rash Verified 08/25/21 08:02 Penicillins AdvReac Upset Verified 08/25/21 08:02 Stomach Family History (Updated 08/25/21 @ 11:33 by Kathrine Elizondo) Mother CVA (cerebral vascular accident) Surgical History History of left heart catheterization (LHC) (~08/14/20) Social History Smoking Status: Current some day smoker tobacco type: cigarettes ROS Constitutional Constitutional: Reports as per HPI Eyes Eyes: Reports as per HPI ENT HEENT: Reports as per HPI Cardiovascular Cardiovascular: Reports chest pain, dyspnea and edema Respiratory/Chest Respiratory/Chest: Reports dyspnea Gastrointestinal Gastrointestinal: Reports as per HPI Genitourinary Genitourinary: Reports as per HPI Musculoskeletal Musculoskeletal: Reports as per HPI Integumentary Integumentary: Reports as per HPI Neurologic Neurologic: Reports as per HPI Psychiatric Psychiatric: Reports as per HPI Physical Exam Const alert, oriented x3 and no apparent distress Orientation / Consciousness: awake HEENT normocephalic, head/scalp atraumatic and hearing grossly normal bilaterally Eyes PERRL, EOMs intact bilaterally and conjunctivae normal Neck full ROM, supple and no JVD Resp clear to auscultation bilaterally Cardio regular rate, regular rhythm, S1 normal heart sound and S2 normal heart sound GI normal to inspection, nondistended, normoactive bowel sounds Extremity General Extremity: edema bilateral lower extremity Details: mild Skin no rashes or lesions noted Neuro oriented x3, moves all extremities, no focal motor deficits and no sensory deficits noted Psych mental status grossly normal Risk Stratification Risk Stratification Applicable: No Procedure Criteria Type of Procedure Procedure Type: Elective Elective Risks - COVID COVID Risk Discussion: The surgeon/proceduralist and patient have discussed in detail the risk of exposure to and/or potential harm posed by the COVID-19 virus with having a surgery/procedure at this time versus the risk of delaying the surgery/procedure. It is not possible to know either the risk of delaying the surgery or procedure or chance of getting an infection with perfect accuracy, but a joint decision was made between the patient and the surgeon/proceduralist to proceed at this time with the scheduled surgery/procedure as indicated on the consent form. Objective Data Vital Signs: Vital Signs Temp Pulse Resp BP Pulse Ox 98.6 F 78 12 98/68 97 08/26/21 15:45 08/26/21 15:45 08/26/21 15:45 08/26/21 15:45 08/26/21 15:45 Oxygen Flow Rate (L/min) 2 Oxygen Delivery Method Room Air Weight: 291 lb 7.218 oz Body Mass Index (BMI) 39.5 Intake & Output: Intake and Output for Last 24 Hours 08/24/21 08/25/21 08/26/21 23:59 23:59 23:59 Intake Total 900 / 1197 747 / 747 Output Total 6900 / 16495 07354 / 18713 Balance -6000 / -9503 -27700 / -99813 Lab / Micro Data Result Diagrams: 08/26/21 04:57 08/26/21 04:57 Labs: Laboratory Results - last 24 hr 08/25/21 16:34: POC Glucose 95 08/25/21 21:13: POC Glucose 100 08/26/21 04:57: WBC 6.5, RBC 4.21 L, Hgb 11.8 L, Hct 35.7 L, MCV 84.8, MCH 28.0, MCHC 33.1, RDW Std Deviation 43.6, RDW Coeff of Polly 14.0, Plt Count 191, MPV 10.0, Immature Gran % (Auto) 0.500, Neut % (Auto) 60.1, Lymph % (Auto) 21.3, Waldo % (Auto) 13.6 H, Eos % (Auto) 4.2, Baso % (Auto) 0.3, Absolute Neuts (auto) 3.9, Absolute Lymphs (auto) 1.38, Nucleated RBC % 0 08/26/21 04:57: Sodium 139, Potassium 3.3 L, Chloride 102, Carbon Dioxide 33.0 H , Anion Gap 4 L, BUN 17, Creatinine 1.00, Estim Creat Clear Calc 103.47, Est GFR (MDRD) Af Amer 104, Est GFR (MDRD) Non-Af 86, BUN/Creatinine Ratio 17.0, Glucose 120 H, Calcium 8.5 08/26/21 06:33: POC Glucose 110 H 08/26/21 11:05: POC Glucose 120 H Cardiology Labs/Tests 08/26/21 04:57: WBC 6.5, RBC 4.21 L, Hgb 11.8 L, Hct 35.7 L, MCV 84.8, MCH 28.0, MCHC 33.1, Plt Count 191, MPV 10.0, Immature Gran % (Auto) 0.500, Neut % (Auto) 60.1, Lymph % (Auto) 21.3, Waldo % (Auto) 13.6 H, Eos % (Auto) 4.2, Baso % (Auto) 0.3, Absolute Neuts (auto) 3.9, Nucleated RBC % 0 08/26/21 04:57: Sodium 139, Potassium 3.3 L, Chloride 102, Carbon Dioxide 33.0 H , Anion Gap 4 L, BUN 17, Creatinine 1.00, Est GFR (MDRD) Af Amer 104, Est GFR (MDRD) Non-Af 86, BUN/Creatinine Ratio 17.0, Glucose 120 H, Calcium 8.5 Rhythm: Sinus rhythm EKG: Sinus rhythm; left bundle branch block pattern ECHO: As noted below Cardiac Cath: 08-14-2020 CONCLUSIONS Elevated Left Ventricular End Diastolic Pressure Global LV systolic dysfunction- Severe LVEF: by LV gram 20 % Normal coronary arteries RECOMMENDATIONS Risk factor modification Medical therapy DESCRIPTION OF PROCEDURE The patient arrived to the procedure lab. The risks and benefits of the procedure as well as a full description of our services here and current unavailability of surgical backup were fully explained to the patient and/or their significant other prior to the catheterization. The Timeout was completed, verifying the correct patient and procedure. The patient's procedural site was prepped and draped in the usual fashion. Local anesthetic was given subcutaneously to right radial region with Lidocaine 2%. Using a modified Seldinger technique, arterial access was obtained via the right radial artery, a 6Fr sheath was inserted. Left Coronary Artery selective angiography was performed in multiple views using a 5 Fr. 4.0 Hymera catheter. Left Ventriculography was performed in MYLES projection using a 5 Fr. Pigtail catheter. LV to AO pullback pressures were then recorded.The arterial sheath was pulled and a TR Band was applied for hemostasis CORONARY ANGIOGRAPHY DOMINANCE: Co- Dominant LEFT HEART ASSESSMENT Left Ventricular Ejection Fraction: by LV Gram 20 % Global Hypokinesis - Severe Elevated Left Ventricular End Diastolic Pressure LVEDP: 32 mmHg LEFT MAIN: Angiographically normal LEFT ANTERIOR DESCENDING ARTERY: Angiographically normal CIRCUMFLEX ARTERY: Angiographically normal RIGHT CORONARY ARTERY: Angiographically normal AORTIC ROOT: Angiographically normal Radiography Diagnostic Testing: Radiology Impression Echocardiogram 08/25/21 11:50 Interpretation Summary The study was technically difficult. Contrast injection was performed. Moderately dilated left ventricle. Severe segmental systolic dysfunction (see wall motion). The estimated ejection fraction is 20 %. The left atrium is mildly enlarged. The right atrium is mildly enlarged. Mild-Moderate (1-2+) mitral valve insufficiency. Moderate (2+) tricuspid valve insufficiency. Mild focal aortic valve calcification. Trivial pulmonic valve insufficiency. Trivial pericardial effusion. There are no echocardiographic indications of cardiac tamponade. Right ventricular systolic pressure estimated to be 39 mmHg. Diastolic function is indeterminate. Ordering Physician: Ally Brody Referring Physician: JAC LITTLE Performed By: Monisha Darby RDCS
[2021-08-26 16:06] LABS: Bedside Glucose 123 mg/dL (74-106)
[2021-08-26 20:31] LABS: Bedside Glucose 130 mg/dL (74-106)
[2021-08-27] VITALS (12 sets, daily range): BP systolic 76–116; BP diastolic 41–82; PULSE 76–86; RESP 16–20; TEMP 36.6–37.6; O2SAT 94–100
[2021-08-27 06:12] LABS: Absolute Lymphocyte Count 1.53 X10^3/uL (0.83-4.51); Absolute Neutrophil Count 4.2 X10^3/uL (2.0-7.7); Basophil# 0.04 X10^3/uL; Basophil% 0.6 % (0-1); Eosinophil# 0.28 X10^3/uL; Eosinophils% 3.9 % (0-5); Hematocrit 36.8 % (40-54); Lymphocyte # 1.53 X10^3/ul (0.83-4.51); Lymphocyte % 21.3 % (19-41); Mean Corp Hgb Conc 32.6 g/dL (32-36); Mean Corpuscular Hgb 27.5 pg (27.0-32.0); Mean Corpuscular Volume 84.4 fL (80-94); Mean Platelet Vol. 10.1 fl (6.2-12.0); Monocyte% 15.3 % (0-10); NRBC Flagged by Analyzer 0 % (0-5); Neutrophil # 4.22 X10^3/uL (2.7-7.7); Neutrophil % 58.8 % (47-70); Platelet Count 227 K/mm3 (150-450); RBC Distribution Width CV 13.9 % (11.6-14.6); RBC Distribution Width SD 42.7 fl (35.1-43.9); Red Blood Count 4.36 M/mm3 (4.6-6.2); White Blood Count 7.2 K/mm3 (4.4-11.0)
[2021-08-27 06:32] LABS: Anion Gap 4 (5-15); BUN 21 mg/dL (7-18); Calcium,Total 8.5 mg/dL (8.5-10.1); Chloride 100 mmol/L (98-107); EST Glomerular Filtration Rate 86 mL/min (>60); Est Glom Filt Rate - Afr Amer 104 mL/min (>60); Estimated Creatinine Clearance 103.47 ml/min; Glucose 100 mg/dL (74-106); Potassium 3.3 mmol/L (3.5-5.1); Sodium Level 135 mmol/L (136-145)
[2021-08-27 07:51] LABS: Bedside Glucose 101 mg/dL (74-106)
[2021-08-27] MEDS: Aspirin 81 MG TAB.CHEW PO (08:31)
[2021-08-27] MEDS: Potassium Chloride Oral Tablet 20 MEQ 40 MEQ PO (08:31)
[2021-08-27] MEDS: Potassium Chloride Oral Tablet 10 MEQ PO (08:32)
--- NOTE | 2021-08-27 09:17 | PCM.PN.CARD ---
Subjective Subjective The patient states that his breathing is markedly improved, he no longer has any sensation of heaviness with respect to his chest, and his lower extremity edema has markedly improved/resolved to baseline. Objective Data Vital Signs: Vital Signs Temp Pulse Resp BP Pulse Ox 97.9 F 76 18 94/59 L 99 08/27/21 07:58 08/27/21 07:58 08/27/21 07:58 08/27/21 07:58 08/27/21 07:58 Oxygen Flow Rate (L/min) 2 Oxygen Delivery Method Room Air Weight: 291 lb 7.218 oz Body Mass Index (BMI) 39.5 Intake & Output: Intake and Output for Last 24 Hours 08/25/21 08/26/21 08/27/21 23:59 23:59 23:59 Intake Total 900 / 1197 1373.67 / 1493.67 120 / 120 Output Total 6900 / 94219 35798 / 96280 1500 / 1500 Balance -6000 / -9503 -00375.33 / -92217.33 -1380 / -1380 Lab / Micro Data Result Diagrams: 08/27/21 05:40 08/27/21 05:40 Labs: Laboratory Results - last 24 hr 08/26/21 11:05: POC Glucose 120 H 08/26/21 15:48: Magnesium 2.0 08/26/21 16:03: POC Glucose 123 H 08/26/21 20:18: POC Glucose 130 H 08/27/21 05:40: WBC 7.2, RBC 4.36 L, Hgb 12.0 L, Hct 36.8 L, MCV 84.4, MCH 27.5, MCHC 32.6, RDW Std Deviation 42.7, RDW Coeff of Polly 13.9, Plt Count 227, MPV 10.1, Immature Gran % (Auto) 0.100, Neut % (Auto) 58.8, Lymph % (Auto) 21.3, Hickory % (Auto) 15.3 H, Eos % (Auto) 3.9, Baso % (Auto) 0.6, Absolute Neuts (auto) 4.2, Absolute Lymphs (auto) 1.53, Nucleated RBC % 0 08/27/21 05:40: Sodium 135 L, Potassium 3.3 L, Chloride 100, Carbon Dioxide 31.0, Anion Gap 4 L, BUN 21 H, Creatinine 1.00, Estim Creat Clear Calc 103.47, Est GFR (MDRD) Af Amer 104, Est GFR (MDRD) Non-Af 86, BUN/Creatinine Ratio 21.0 H, Glucose 100, Calcium 8.5 08/27/21 07:45: POC Glucose 101 Cardiology Labs/Tests 08/26/21 15:48: Magnesium 2.0 08/27/21 05:40: WBC 7.2, RBC 4.36 L, Hgb 12.0 L, Hct 36.8 L, MCV 84.4, MCH 27.5, MCHC 32.6, Plt Count 227, MPV 10.1, Immature Gran % (Auto) 0.100, Neut % (Auto) 58.8, Lymph % (Auto) 21.3, [place] % (Auto) 15.3 H, Eos % (Auto) 3.9, Baso % (Auto) 0.6, Absolute Neuts (auto) 4.2, Nucleated RBC % 0 08/27/21 05:40: Sodium 135 L, Potassium 3.3 L, Chloride 100, Carbon Dioxide 31.0, Anion Gap 4 L, BUN 21 H, Creatinine 1.00, Est GFR (MDRD) Af Amer 104, Est GFR (MDRD) Non-Af 86, BUN/Creatinine Ratio 21.0 H, Glucose 100, Calcium 8.5 Rhythm: Sinus rhythm; PVCs Physical Exam Const alert, oriented x3 and no apparent distress Orientation / Consciousness: awake HEENT normocephalic, head/scalp atraumatic and hearing grossly normal bilaterally Eyes PERRL, EOMs intact bilaterally and conjunctivae normal Neck full ROM, supple and no JVD Resp clear to auscultation bilaterally Cardio regular rate, regular rhythm, S1 normal heart sound and S2 normal heart sound GI normal to inspection, nondistended, normoactive bowel sounds Extremity no pedal edema Skin no rashes or lesions noted Neuro oriented x3, moves all extremities, no focal motor deficits and no sensory deficits noted Psych mental status grossly normal Assessment & Plan Assessment/Plan (1) Cardiomyopathy: PLAN: The patient has a history of a non-CAD related cardiomyopathy. He has been reassessed with a transthoracic echocardiogram to compare to his previous noninvasive and invasive studies from August 2021. Overall his LV systolic function/LVEF appears to be similar. At the present time he will continue medical management as deemed appropriate. (2) CHF (congestive heart failure): PLAN: The patient appeared to have recurrent acute on chronic systolic mediated CHF. Again he has undergone noninvasive valuation as noted. He will continue medical therapy. (3) LBBB (left bundle branch block): PLAN: The patient has a history of an underlying left bundle branch block pattern. This appears compatible with his non-CAD related cardiomyopathy. He will continue his evaluation and care. (4) HTN (hypertension): PLAN: The patient's blood pressure needs to be monitored with adjustment of medications as deemed appropriate. Addt'l Comments At the present time the patient does appear to have symptomatic and objective improvement of his underlying cardiovascular condition. He will need to continue combined cardiovascular medical therapy with adjustment based upon his clinical course and vital signs and laboratory studies. He states he is going to follow-up with his [facility] PCP with referral to [facility] cardiology for additional cardiovascular evaluation/care/options. This note was generated using a voice recognition system and there may be incorrect words, spelling or punctuation that were not noted when reviewing the office note prior to saving.
--- NOTE | 2021-08-27 09:37 | CASEMGMT ---
CHINYERE met with patient. CHINYERE introduced self and role at [facility]. CHINYERE gave patient information on advance directives as he requested this from RN LIZABETH. CHINYERE told patient when he was at [facility] last year he was set up with [facility] for an appt for his drug use. Patient said he moved away again just before the appt. He said he relapsed one time right when he returned. He feels great and does not need any resources to help him. He thanked CHINYERE for checking on him. Neli Chase MSW MIGUEL ANGEL
--- NOTE | 2021-08-27 09:45 | CASEMGMT ---
Pt is on room air and states no concerns with going home at time of discharge. Neli FERNANDEZ CM
[2021-08-27] MEDS: Enoxaparin 40 MG/0.4 ML Syringe SC (10:27)
[2021-08-27] MEDS: 0.9% Normal Saline 1,000 ML 999 ML IV (10:42)
[2021-08-27 10:57] LABS: Bedside Glucose 161 mg/dL (74-106)
[2021-08-27] MEDS: Insulin Lispro 100 UNIT/ML INSULN.PEN SC ×2 (12:02→21:28)
--- NOTE | 2021-08-27 12:26 | PN.HOSP_ITS ---
Subjective Subjective Patient seen and examined. He had no complaints today and felt very well. Plan was to discharge him today but he was noted to be hypotensive; this is likely due to diuresis. HE is asymptomatic though. Review of systems otherwise negative. BP down in the 80s and 70s systolic. Objective Data Objective Data Vital Signs: Vital Signs Temp Pulse Resp BP Pulse Ox 97.9 F 76 18 91/65 99 08/27/21 07:58 08/27/21 07:58 08/27/21 07:58 08/27/21 11:53 08/27/21 07:58 Oxygen Flow Rate (L/min) 2 Oxygen Delivery Method Room Air Weight: 291 lb 7.218 oz Body Mass Index (BMI) 39.5 Intake & Output: Intake and Output for Last 24 Hours 08/25/21 08/26/21 08/27/21 23:59 23:59 23:59 Intake Total 900 / 1197 1373.67 / 1493.67 1480 / 1480 Output Total 6900 / 31617 91674 / 65032 2625 / 2625 Balance -6000 / -9503 -92348.33 / -88258.33 -1145 / -1145 Lab / Micro Data Result Diagrams: 08/27/21 05:40 08/27/21 05:40 Labs: Laboratory Results - last 24 hr 08/26/21 15:48: Magnesium 2.0 08/26/21 16:03: POC Glucose 123 H 08/26/21 20:18: POC Glucose 130 H 08/27/21 05:40: WBC 7.2, RBC 4.36 L, Hgb 12.0 L, Hct 36.8 L, MCV 84.4, MCH 27.5, MCHC 32.6, RDW Std Deviation 42.7, RDW Coeff of Polly 13.9, Plt Count 227, MPV 10.1, Immature Gran % (Auto) 0.100, Neut % (Auto) 58.8, Lymph % (Auto) 21.3, [place] % (Auto) 15.3 H, Eos % (Auto) 3.9, Baso % (Auto) 0.6, Absolute Neuts (auto) 4.2, Absolute Lymphs (auto) 1.53, Nucleated RBC % 0 08/27/21 05:40: Sodium 135 L, Potassium 3.3 L, Chloride 100, Carbon Dioxide 31.0, Anion Gap 4 L, BUN 21 H, Creatinine 1.00, Estim Creat Clear Calc 103.47, Est GFR (MDRD) Af Amer 104, Est GFR (MDRD) Non-Af 86, BUN/Creatinine Ratio 21.0 H, Glucose 100, Calcium 8.5 08/27/21 07:45: POC Glucose 101 08/27/21 10:47: POC Glucose 161 H Physical Exam Const alert, oriented x3 and no apparent distress General Appearance: cooperative Exam Limitations: no limitations HEENT normocephalic, head/scalp atraumatic, hearing grossly normal bilaterally and laura st oral mucous membranes Head and Scalp: normocephalic Eyes PERRL, EOMs intact bilaterally and conjunctivae normal Neck no lymphadenopathy, supple and no JVD Resp Resp Narrative: mildly diminished breath sounds bibasally, no wheezes or crackles. On room air Cardio regular rate, regular rhythm, S1 normal heart sound, S2 normal heart sound and no murmurs GI normal to inspection, nondistended, normoactive bowel sounds, soft to palpation, non-tender and non-distended Extremity normal to inspection and full ROM Extremity Narrative: mild 1+ bipedal pitting edema Peripheral Pulses: Yes pulses 2+ throughout Skin no rashes or lesions noted, no wounds and skin turgor normal Neuro oriented x3 Sensorium / Orientation: awake and alert Psych affect normal Assessment & Plan Assessment/Plan (1) CHF (congestive heart failure): PLAN: #Acute on chronic HFrEF * in cumulative negative balance by 19L * 2D echo showed EF of 20%, with moderately dilated LV and severe segmental systolic dysfunction. mildly enlarged left atrium. RVSP is 39mmhg. * fluid restriction to 1500cc daily * monitor intake and output * on entresto * cardiology consulted and recommends he follows up with his scheduled cardiologists at [facility] for consideration for biventricular ICD * #HYpokalemia: K is 3.3 again today. Will replace and trend. #Hypotension * Likely due to diuresis with Lasix. Given a bolus of 1 L normal saline today because blood pressures are in the 70s. Blood pressures only came up to the 90s. He is asymptomatic. I am reluctant to give him more fluids on account of his EF of 20%. We will hold Entresto and Lasix as well as amlodipine and carvedilol and monitor blood pressure overnight. #Hypertension * On amlodipine and carvedilol; will hold on account of hypotension * #Type 2 diabetes mellitus: Hold Metformin. Insulin sliding scale. Checks ACHS. DVT prophylaxis: lovenox Code status: full code * Disposition; for likely dc tomorrow once BP has improved Charges/Coding Visit Charges Inpatient E&M: 56605 Subs Hosp L2
[2021-08-27 16:20] LABS: Bedside Glucose 124 mg/dL (74-106)
[2021-08-27 21:36] LABS: Bedside Glucose 154 mg/dL (74-106)
[2021-08-28 03:13] VITALS: BP 103/70; PULSE 86; RESP 18; TEMP 36.6; O2SAT 96
[2021-08-28 03:17] VITALS: PULSE 95
[2021-08-28 04:36] LABS: Absolute Lymphocyte Count 1.72 X10^3/uL (0.83-4.51); Basophil# 0.02 X10^3/uL; Basophil% 0.3 % (0-1); Eosinophil# 0.28 X10^3/uL; Eosinophils% 3.9 % (0-5); Hematocrit 37.7 % (40-54); Hemoglobin 12.8 g/dL (13.0-16.5); Lymphocyte # 1.72 X10^3/ul (0.83-4.51); Lymphocyte % 24.2 % (19-41); Mean Corpuscular Hgb 28.4 pg (27.0-32.0); Mean Corpuscular Volume 83.8 fL (80-94); Mean Platelet Vol. 10.2 fl (6.2-12.0); Monocyte# 1.12 X10^3/uL; Monocyte% 15.8 % (0-10); NRBC Flagged by Analyzer 0 % (0-5); Neutrophil # 3.96 X10^3/uL (2.7-7.7); Neutrophil % 55.7 % (47-70); Platelet Count 217 K/mm3 (150-450); RBC Distribution Width CV 13.8 % (11.6-14.6); RBC Distribution Width SD 42.3 fl (35.1-43.9); White Blood Count 7.1 K/mm3 (4.4-11.0)
[2021-08-28 05:06] LABS: Anion Gap 4 (5-15); BUN 25 mg/dL (7-18); BUN/Creat Ratio 25.1 RATIO (10-20); Calcium,Total 8.2 mg/dL (8.5-10.1); Chloride 106 mmol/L (98-107); EST Glomerular Filtration Rate 86 mL/min (>60); Est Glom Filt Rate - Afr Amer 104 mL/min (>60); Estimated Creatinine Clearance 103.47 ml/min; Glucose 101 mg/dL (74-106); Sodium Level 137 mmol/L (136-145)
[2021-08-28] MEDS: Acetaminophen 325 MG Tablet 650 MG PO (06:38)
[2021-08-28 06:41] LABS: Bedside Glucose 113 mg/dL (74-106)
[2021-08-28 06:57] VITALS: PULSE 88
[2021-08-28 07:26] VITALS: O2SAT 94
[2021-08-28 09:15] VITALS: BP 103/66; PULSE 90; RESP 18; TEMP 36.4; O2SAT 94
[2021-08-28] MEDS: Aspirin 81 MG TAB.CHEW PO (09:28)
[2021-08-28] MEDS: Potassium Chloride Oral Tablet 20 MEQ PO (09:28)
--- NOTE | 2021-08-28 10:03 | PCM.PN.CARD ---
Objective Data Vital Signs: Vital Signs Temp Pulse Resp BP Pulse Ox 97.5 F L 90 18 103/66 94 08/28/21 09:15 08/28/21 09:15 08/28/21 09:15 08/28/21 09:15 08/28/21 09:15 Oxygen Flow Rate (L/min) 2 Oxygen Delivery Method Room Air Weight: 257 lb 11.526 oz Body Mass Index (BMI) 39.5 Intake & Output: Intake and Output for Last 24 Hours 08/26/21 08/27/21 08/28/21 23:59 23:59 23:59 Intake Total 1373.67 / 1493.67 1960 / 2180 220 / 220 Output Total 68763 / 95213 2625 / 2825 200 / 200 Balance -28358.33 / -75729.33 -665 / -645 Lab / Micro Data Result Diagrams: 08/28/21 04:18 08/28/21 04:18 Labs: Laboratory Results - last 24 hr 08/27/21 10:47: POC Glucose 161 H 08/27/21 16:15: POC Glucose 124 H 08/27/21 21:21: POC Glucose 154 H 08/28/21 04:18: WBC 7.1, RBC 4.50 L, Hgb 12.8 L, Hct 37.7 L, MCV 83.8, MCH 28.4, MCHC 34.0, RDW Std Deviation 42.3, RDW Coeff of Polly 13.8, Plt Count 217, MPV 10.2, Immature Gran % (Auto) 0.100, Neut % (Auto) 55.7, Lymph % (Auto) 24.2, [place] % (Auto) 15.8 H, Eos % (Auto) 3.9, Baso % (Auto) 0.3, Absolute Neuts (auto) 4.0, Absolute Lymphs (auto) 1.72, Nucleated RBC % 0 08/28/21 04:18: Sodium 137, Potassium 4.0, Chloride 106, Carbon Dioxide 27.0, Anion Gap 4 L, BUN 25 H, Creatinine 1.00, Estim Creat Clear Calc 103.47, Est GFR (MDRD) Af Amer 104, Est GFR (MDRD) Non-Af 86, BUN/Creatinine Ratio 25.1 H, Glucose 101, Calcium 8.2 L 08/28/21 06:31: POC Glucose 113 H Cardiology Labs/Tests 08/28/21 04:18: WBC 7.1, RBC 4.50 L, Hgb 12.8 L, Hct 37.7 L, MCV 83.8, MCH 28.4, MCHC 34.0, Plt Count 217, MPV 10.2, Immature Gran % (Auto) 0.100, Neut % (Auto) 55.7, Lymph % (Auto) 24.2, [place] % (Auto) 15.8 H, Eos % (Auto) 3.9, Baso % (Auto) 0.3, Absolute Neuts (auto) 4.0, Nucleated RBC % 0 08/28/21 04:18: Sodium 137, Potassium 4.0, Chloride 106, Carbon Dioxide 27.0, Anion Gap 4 L, BUN 25 H, Creatinine 1.00, Est GFR (MDRD) Af Amer 104, Est GFR (MDRD) Non-Af 86, BUN/Creatinine Ratio 25.1 H, Glucose 101, Calcium 8.2 L Rhythm: EKG: ECHO: Stress Test: Cardiac Cath: PCI: CT Surgery: Holter monitor: EPS: PPM: CXR: Chest CT Scan: Assessment & Plan Assessment/Plan (1) Cardiomyopathy: (2) CHF (congestive heart failure): (3) LBBB (left bundle branch block): (4) Hypokalemia:
--- NOTE | 2021-08-28 11:12 | DS.PCM_ITS ---
Providers Date of Admission: 08/25/21 Primary Care Physician: CATERINA Bonilla Reason For Visit: ACUTE ON CHRONIC HEART FAILURE Diagnosis Discharge Diagnosis (1) Cardiomyopathy: Status: Acute Code(s): I42.9 - Cardiomyopathy, unspecified (2) CHF (congestive heart failure): Status: Acute Code(s): I50.9 - Heart failure, unspecified (3) LBBB (left bundle branch block): Status: Acute Code(s): I44.7 - Left bundle-branch block, unspecified (4) Hypokalemia: Status: Acute Code(s): E87.6 - Hypokalemia (5) Acute heart failure with reduced ejection fraction and diastolic dysfunction: Status: Acute Code(s): I50.41 - Acute combined systolic (congestive) and diastolic (congestive) heart failure Medications at Discharge Home Medications aripiprazole 5 mg PO DAILY 08/12/20 aspirin 81 mg PO DAILY@0800 08/12/20 metformin 1,000 mg PO BIDCM 08/12/20 carvedilol 3.125 mg PO BID #60 tab 08/15/20 Entresto 0.5 tab PO BID 08/25/21 furosemide 20 mg PO BID 08/25/21 potassium chloride 10 meq PO DAILY 08/25/21 Hospital Course Operations None Procedures 2-D Echocardiogram Summary of Care Provided Minutes Spent on Discharge: 45 Hospital Course: REBEKAH YEAGER, is a 45 M with a H as outlined who presents via the ED on 08/25/2021 with a complaint of general feeling of unwellness and shortness of breath and abdominal bloating. Patient has a history of heart failure and used to be seen in [facility], but hasnt seen a appliance line assembler in a while. He run out of his lasix a week ago. He admitted to some intermittent chest discomfot and lower extremity edema. He felt his weight had gone up from 245 pounds to 300 pounds. He denied any orthopnea or PND. He denied any lightheadedness, palpitations, nausea or vomiting. Review of systems is otherwise negative. Vitals were BP of 117/83, W[place] of 93, RR of 24 and he was saturating at 98% on room air. CBC showed wbc of 7.7, Hb of 11.3, platelets of 203. BMP showed sodium of 139, K of 4,1, and Cr of 1.06. BNP was 794.4. Chest xray showed cardiomegaly with mild degree of vascular congestion. He was admitted to be managed for acute on chronic exacerbation of heart failure with unknown EF. He was started on lasix drip. He had 2D echo which showed EF of 20% with moderately dilated LV and severe segmental systolic dysfunction with RV systolic pressure of 39mmHg. He diuresed a total of 21L and felt much better. Hospital course was complicated by hypotension thought to be due to diuresis. Cardiology was consulted o/a of low EF and recommendation was for patient to follow up at [facility] as scheduled to be considered for biventricular ICD placement. He was discharged home on 08/28/2021; amlodipine was stopped, and he was discharged home on entresto and lasix as well as carvedilol. Seen and examined prior to discharge. He had no active complaints and felt much better. Review of symptoms otherwise negative. Labs and vitals reviewed. Home Medication reviewed and reconciled. Physical Exam Const alert, oriented x3 and no apparent distress General Appearance: cooperative, comfortable and well kempt Exam Limitations: no limitations HEENT normocephalic, head/scalp atraumatic, hearing grossly normal bilaterally and moist oral mucous membranes Eyes PERRL, EOMs intact bilaterally and conjunctivae normal Neck no lymphadenopathy, supple and no JVD Resp Resp Narrative: mildly diminished breath sounds bibasally, no wheezes or crackles. On room air Cardio regular rate, regular rhythm, S1 normal heart sound, S2 normal heart sound and no murmurs GI normal to inspection, nondistended, normoactive bowel sounds, soft to palpation, non-tender and non-distended Extremity normal to inspection and full ROM Extremity Narrative: mild 1+ bipedal pitting edema Skin no rashes or lesions noted, no wounds and skin turgor normal Neuro oriented x3 Sensorium / Orientation: awake and alert Psych affect normal Weight / BMI Weight Weight: 257 lb 11.526 oz Body Mass Index (BMI) 39.5 ABG / Lab / Microbiology Data Result Diagrams: 08/28/21 04:18 08/28/21 04:18 Laboratory: Laboratory Results - last 24 hr 08/27/21 16:15: POC Glucose 124 H 08/27/21 21:21: POC Glucose 154 H 08/28/21 04:18: WBC 7.1, RBC 4.50 L, Hgb 12.8 L, Hct 37.7 L, MCV 83.8, MCH 28.4, MCHC 34.0, RDW Std Deviation 42.3, RDW Coeff of Polly 13.8, Plt Count 217, MPV 10.2, Immature Gran % (Auto) 0.100, Neut % (Auto) 55.7, Lymph % (Auto) 24.2, [place] % (Auto) 15.8 H, Eos % (Auto) 3.9, Baso % (Auto) 0.3, Absolute Neuts (auto) 4.0, Absolute Lymphs (auto) 1.72, Nucleated RBC % 0 08/28/21 04:18: Sodium 137, Potassium 4.0, Chloride 106, Carbon Dioxide 27.0, Anion Gap 4 L, BUN 25 H, Creatinine 1.00, Estim Creat Clear Calc 103.47, Est GFR (MDRD) Af Amer 104, Est GFR (MDRD) Non-Af 86, BUN/Creatinine Ratio 25.1 H, Glucose 101, Calcium 8.2 L 08/28/21 06:31: POC Glucose 113 H D/C Instructions Discharge Diet: Low fat / Low cholesterol Discharge Activity: Return to Normal Activity Weight Bearing Status: Weight bearing as tolerated Call your doctor if you observe: Shortness of breath, Dizziness, Swelling in the ankles, Chest pain and Increased palpitations (irregular heartbeat) Meaningful Use Info Meaningful Use Diagnoses (Choose all that apply): CHF CHF LEATHA/ARB ordered at discharge?: Yes Documented LVEF (%): 20 Discharge Plan Admission Admit Date/Time: 08/25/21 10:39 Primary Reason for Your Visit: acute on chronic heart failure Attending Provider: Ally Brody Primary Care Provider: Linette Hopkins NP Instructions Patient Instructions: Coping with Heart Failure Additional Instructions / Restrictions: follow up with your appliance line assembler at [facility] as scheduled Discharge Orders/Prescriptions Prescriptions: Continued aspirin 81 MG tablet,chewable 81 mg PO DAILY@0800 RF: 0 metformin 1,000 MG tablet 1,000 mg PO BIDCM RF: 0 aripiprazole 5 MG tablet 5 mg PO DAILY RF: 0 carvedilol 3.125 MG tablet 3.125 mg PO BID Qty: 60 RF: 0 potassium chloride 10 mEq Capsule, Extended Release 10 meq PO DAILY RF: 0 Entresto 24-26 mg Tablet 0.5 tab PO BID RF: 0 Discontinued amlodipine 10 MG tablet 10 mg PO DAILY RF: 0 No Action furosemide 20 mg Tablet 20 mg PO BID RF: 0 Referrals / Follow Up: Linette Hopkins NP, OIL FIELD EQUIPMENT MECHANIC-[employer] [Primary Care Provider] - 09/11/21 9:40 am Disposition Disposition (needs filled in before D/C Order can be placed): Home, Self Care Charges/Coding Visit Charges Inpatient E&M: 30560 Disch Hosp
[2021-08-28] MEDS: Insulin Lispro 100 UNIT/ML INSULN.PEN SC (11:42)
[2021-08-28 11:55] LABS: Bedside Glucose 153 mg/dL (74-106)
--- NOTE | 2021-08-28 12:56 | PN.CARD_ITS ---
Documented by User: Iesha OWENS, ROMAN 08/28/21 13:04 Subjective Subjective Pt sts he is feeling much better. He does not have any chest pain or SOB. He is planning on following up with [facility] cardiology. Objective Data Vital Signs: Vital Signs Temp Pulse Resp BP Pulse Ox 97.5 F L 90 18 103/66 94 08/28/21 09:15 08/28/21 09:15 08/28/21 09:15 08/28/21 09:15 08/28/21 09:15 Oxygen Flow Rate (L/min) 2 Oxygen Delivery Method Room Air Weight: 257 lb 11.526 oz Body Mass Index (BMI) 39.5 Intake & Output: Intake and Output for Last 24 Hours 08/26/21 08/27/21 08/28/21 23:59 23:59 23:59 Intake Total 1373.67 / 1493.67 1960 / 2180 460 / 460 Output Total 01492 / 57892 2625 / 2825 200 / 200 Balance -77115.33 / -39357.33 -665 / -645 260 / 260 Lab / Micro Data Result Diagrams: 08/28/21 04:18 08/28/21 04:18 Labs: Laboratory Results - last 24 hr 08/27/21 16:15: POC Glucose 124 H 08/27/21 21:21: POC Glucose 154 H 08/28/21 04:18: WBC 7.1, RBC 4.50 L, Hgb 12.8 L, Hct 37.7 L, MCV 83.8, MCH 28.4, MCHC 34.0, RDW Std Deviation 42.3, RDW Coeff of Polly 13.8, Plt Count 217, MPV 10.2, Immature Gran % (Auto) 0.100, Neut % (Auto) 55.7, Lymph % (Auto) 24.2, [place] % (Auto) 15.8 H, Eos % (Auto) 3.9, Baso % (Auto) 0.3, Absolute Neuts (auto) 4.0, Absolute Lymphs (auto) 1.72, Nucleated RBC % 0 08/28/21 04:18: Sodium 137, Potassium 4.0, Chloride 106, Carbon Dioxide 27.0, Anion Gap 4 L, BUN 25 H, Creatinine 1.00, Estim Creat Clear Calc 103.47, Est GFR (MDRD) Af Amer 104, Est GFR (MDRD) Non-Af 86, BUN/Creatinine Ratio 25.1 H, Glucose 101, Calcium 8.2 L 08/28/21 06:31: POC Glucose 113 H 08/28/21 11:41: POC Glucose 153 H Cardiology Labs/Tests 08/28/21 04:18: WBC 7.1, RBC 4.50 L, Hgb 12.8 L, Hct 37.7 L, MCV 83.8, MCH 28.4, MCHC 34.0, Plt Count 217, MPV 10.2, Immature Gran % (Auto) 0.100, Neut % (Auto) 55.7, Lymph % (Auto) 24.2, [place] % (Auto) 15.8 H, Eos % (Auto) 3.9, Baso % (Auto) 0.3, Absolute Neuts (auto) 4.0, Nucleated RBC % 0 08/28/21 04:18: Sodium 137, Potassium 4.0, Chloride 106, Carbon Dioxide 27.0, Anion Gap 4 L, BUN 25 H, Creatinine 1.00, Est GFR (MDRD) Af Amer 104, Est GFR (MDRD) Non-Af 86, BUN/Creatinine Ratio 25.1 H, Glucose 101, Calcium 8.2 L Physical Exam Const alert, oriented x3 and no apparent distress Orientation / Consciousness: awake HEENT normocephalic, head/scalp atraumatic and hearing grossly normal bilaterally Eyes PERRL, EOMs intact bilaterally and conjunctivae normal Neck full ROM, supple and no JVD Resp clear to auscultation bilaterally Cardio regular rate, regular rhythm, S1 normal heart sound and S2 normal heart sound GI normal to inspection, nondistended, normoactive bowel sounds Extremity no pedal edema Skin no rashes or lesions noted Neuro oriented x3, moves all extremities, no focal motor deficits and no sensory deficits noted Psych mental status grossly normal Assessment & Plan Assessment/Plan (1) Cardiomyopathy: (2) CHF (congestive heart failure): (3) HTN (hypertension): PLAN: * pt has improved. * he will follow up with [facility] cardiology. * Recommend that he be d/c on Coreg, Entresto, Lasix. Would benefit from continued medical optimization, in the future he would consider [facility] to help with optimization of his CHF and his BP are on the low side. Documented by User: Dr. Edgar Arreola MD 08/28/21 16:16 Lab / Micro Data Result Diagrams: 08/28/21 04:18 08/28/21 04:18 Assessment & Plan Assessment/Plan (1) Cardiomyopathy: (2) Chest pain: (3) Diabetes: (4) Methamphetamine abuse: (5) Acute heart failure with reduced ejection fraction and diastolic dysfunction: PLAN: I independently reviewed the current data of this patient including current lab, quality improvement engineer, cardiac medication Patient has dilated cardiomyopathy and presented with acute on chronic systolic heart failure. I formulated cardiac care plan and discuss as documented by midlevel docume ntation.
[2021-08-28] MEDS: Furosemide 20 MG Tablet PO (14:29)
== END 2021-08-28 14:35 | disposition home or self-care (01) | DRG 194 ==
LOC: ED 10:10 → PCU 10:43
PROVIDERS: Admitting Provider Student in an Organized Health Care Education/Training Program; Emergency Provider Emergency Medicine; PCP Clinical Nurse Specialist; Visit Provider Student in an Organized Health Care Education/Training Program
DX: I11.0 Hypertensive heart disease with heart failure (principal); I42.0 Dilated cardiomyopathy; E11.9 Type 2 diabetes mellitus without complications; I50.23 Acute on chronic systolic (congestive) heart failure; I95.2 Hypotension due to drugs; F17.210 Nicotine dependence, cigarettes, uncomplicated; I44.7 Left bundle-branch block, unspecified; E87.6 Hypokalemia; T50.1X5A Adverse effect of loop [high-ceiling] diuretics, initial encounter; Z23 Encounter for immunization; Z79.82 Long term (current) use of aspirin; Z79.84 Long term (current) use of oral hypoglycemic drugs; Z79.899 Other long term (current) drug therapy
CPT/HCPCS: 36415; 71045; 80048; 80076; 82962; 83735; 83880; 84484; 85025; 93005; 93306; 94640; 97802; 99284; J7030; Q9957; 90686; A4216; C8929; J1940

== ENCOUNTER 2021-11-01 09:01 | Emergency (ER) | payer MEDICAID, SELFPAY ==
[2021-11-01 09:02] VITALS: BP 140/98; PULSE 114; RESP 20; TEMP 36.6; O2SAT 98; BMI 35.2
--- NOTE | 2021-11-01 09:04 | ED.RN ---
PT ASSESSED IN TRIAGE. INFORMATION OBTAINED. THIS RN CALLS FOR AN EKG AND PATIENT IS MOVED TO A ROOM. THIS RN THEN COMPLETES TRIAGE ASSESSMENT TO NOT DELAY CARE
--- NOTE | 2021-11-01 09:19 | EKG12_ITS ---
Test Reason : CP Blood Pressure : / mmHG Vent. Rate : 086 BPM Atrial Rate : 086 BPM P-R Int : 172 ms QRS Dur : 166 ms QT Int : 426 ms P-R-T Axes : 068 068 218 degrees QTc Int : 509 ms Normal sinus rhythm Left bundle branch block Abnormal ECG Confirmed by ANNE AGUAYO MD ([id number]), editor house organ OG WOODWARD ([id number]) on 11/03/2021 1:22:36 PM Referred By: JO-ANN Confirmed By:ANNE AGUAYO MD
[2021-11-01 09:32] LABS: Absolute Lymphocyte Count 1.38 X10^3/uL (0.83-4.51); Absolute Neutrophil Count 4.8 X10^3/uL (2.0-7.7); Basophil# 0.03 X10^3/uL; Basophil% 0.4 % (0-1); Eosinophil# 0.41 X10^3/uL; Eosinophils% 5.5 % (0-5); Hematocrit 37.7 % (40-54); Hemoglobin 12.5 g/dL (13.0-16.5); Lymphocyte # 1.38 X10^3/ul (0.83-4.51); Lymphocyte % 18.6 % (19-41); Mean Corp Hgb Conc 33.2 g/dL (32-36); Mean Corpuscular Hgb 27.1 pg (27.0-32.0); Mean Corpuscular Volume 81.6 fL (80-94); Monocyte# 0.77 X10^3/uL; Monocyte% 10.4 % (0-10); NRBC Flagged by Analyzer 0 % (0-5); Platelet Count 207 K/mm3 (150-450); RBC Distribution Width CV 13.9 % (11.6-14.6); RBC Distribution Width SD 40.8 fl (35.1-43.9); Red Blood Count 4.62 M/mm3 (4.6-6.2); White Blood Count 7.4 K/mm3 (4.4-11.0)
[2021-11-01] MEDS: Aspirin 81 MG TAB.CHEW 243 MG PO (09:40)
[2021-11-01 09:44] LABS: International Normalized Ratio 1.1; Prothrombin Time (Protime)PT. 13.8 SECONDS (11.7-14.9)
[2021-11-01 09:46] LABS: Anion Gap 4 (5-15); BUN 20 mg/dL (7-18); BUN/Creat Ratio 20.1 RATIO (10-20); Calcium,Total 8.6 mg/dL (8.5-10.1); Chloride 109 mmol/L (98-107); Creatinine, Serum 0.99 mg/dL (0.70-1.30); EST Glomerular Filtration Rate 87 mL/min (>60); Est Glom Filt Rate - Afr Amer 105 mL/min (>60); Estimated Creatinine Clearance 104.51 ml/min; Glucose 122 mg/dL (74-106); Potassium 4.1 mmol/L (3.5-5.1); Sodium Level 141 mmol/L (136-145); Troponin-I HS (w/2H Reflex) 14 pg/mL (3.0-78.0)
[2021-11-01 09:53] LABS: BNP,B-Type NATRIURETIC PEPTIDE 326.1 pg/mL (0-100)
--- NOTE | 2021-11-01 10:04 | RAD_ITS ---
STUDY: X-RAY CHEST REASON FOR EXAM: Male, 45 years old. chest pain TECHNIQUE: Frontal view COMPARISON: 08/25/2021 0821 hours. FINDINGS: The lungs are clear and expanded. There is no demonstrated pleural abnormality. Mild cardiomegaly. Normal mediastinum and brent. There is mild central vascular congestion stable. Normal visualized aortic arch and descending thoracic aorta. Normal visualized thoracic spine. Normal visualized ribs, clavicles, and shoulders. There is no demonstrated abnormality of the visualized soft tissue structures of the upper abdomen. RAD/Chest 1 View (Portable) IMPRESSION: Cardiomegaly. Mild central vascular congestion. Stable findings. Electronically Signed: Rg Brown MD, VANESSA at 10:28 EDT ,
[2021-11-01 11:22] LABS: Reflex Troponin-HS? (from REC) Y
[2021-11-01 11:41] VITALS: BP 141/103; PULSE 79; RESP 23; O2SAT 99
[2021-11-01 12:08] LABS: Troponin-I HS 15 pg/mL (3.0-78.0)
--- NOTE | 2021-11-01 12:22 | ED.VIS.CHEST ---
HPI History of Present Illness Chief Complaint: Chest Pain Informant: patient Onset/Context/Timing Onset: Yesterday Timing: Intermittent Quality: Positive for - (Cramping) Location: Substernal Current Severity: Mild Maximum Severity: Moderate Narrative Narrative: Patient presents secondary to intermittent cramping chest pain that started last night along with some palpitations. He has a history of cardiomyopathy with EF of 20% on last echocardiogram. He denies history of prior [place]. Patient did take 1 baby aspirin this morning. He is scheduled to see cardiology here later this year to be established. PFS PFS Medical History Bipolar 1 disorder Cardiomyopathy CHF (congestive heart failure) Diabetes GERD (gastroesophageal reflux disease) HTN (hypertension) LBBB (left bundle branch block) Obesity (BMI 30-39.9) Sleep apnea Smoker Home Medications aripiprazole 5 mg PO DAILY 08/12/20 [History Last Taken 08/11/20] aspirin 81 mg PO DAILY@0800 08/12/20 [History Last Taken 08/24/21] metformin 1,000 mg PO BIDCM 08/12/20 [History Last Taken 08/24/21] carvedilol 3.125 mg PO BID #60 tab 08/15/20 [Rx Last Taken 08/24/21] Entresto 0.5 tab PO BID 08/25/21 [History Last Taken Unknown] potassium chloride 10 meq PO DAILY 08/25/21 [History Last Taken 08/24/21] furosemide [Lasix] 40 mg PO DAILY #30 tab 08/28/21 [Rx Last Taken Unknown] furosemide [Lasix] 40 mg PO DAILY #7 tab 11/01/21 [Rx Last Taken Unknown] Allergy/AdvReac Type Severity Reaction Status Date / Time promethazine [From Phenergan] Allergy Rash Verified 11/01/21 09:04 Penicillins AdvReac Upset Verified 11/01/21 09:04 Stomach Family History Mother CVA (cerebral vascular accident) Surgical History History of left heart catheterization (LHC) (~08/14/20) Social History Smoking Status: Light Smoker (<10/day) ROS ROS ED Constitutional Constitutional ED: Denies chills or fever(s) Eyes Eyes: Denies change in vision ENT ENT ED: Denies sore throat Cardiovascular Cardiovascular: Reports chest pain and palpitations Respiratory/Chest Respiratory/Chest: Reports dyspnea; Denies cough Gastrointestinal Gastrointestinal: Denies abdominal pain, nausea or vomiting Genitourinary Genitourinary ED: Denies dysuria Musculoskeletal Musculoskeletal: Denies back pain Integumentary Denies rash Neurologic Neurologic: Denies headache(s) or weakness Allergic/Immunologic Allergic/Immunologic ED: Denies urticaria EXAM Physical Exam Const Vital Signs: 11/01/21 09:02 11/01/21 09:12 11/01/21 09:41 Temperature 97.8 F Temperature Source Temporal Pulse Rate 114 H Respiratory Rate 20 H Respiratory Effort Normal Non-Labored Blood Pressure 140/98 H Blood Pressure Mean 112 Pulse Ox 98 Oxygen Delivery Method Room Air Room Air 11/01/21 11:41 11/01/21 13:09 Temperature Temperature Source Pulse Rate 79 80 Respiratory Rate 23 H 18 Respiratory Effort Blood Pressure 141/103 H 122/83 H Blood Pressure Mean 115 96 Pulse Ox 99 96 Oxygen Delivery Method Room Air Room Air Positive well nourished and well developed General Appearance ED: well developed HEENT normocephalic and atraumatic Eyes PERRL and EOMs intact bilaterally Neck supple Chest Wall inspection of chest normal and palpation of chest normal Resp normal respiratory effort Effort and Inspection: respiratory distress Cardio regular rate and regular rhythm GI soft to palpation and non-tender Extremity normal to inspection Neuro oriented x3 Sensorium / Orientation: awake and alert Psych mental status grossly normal Skin no rashes or lesions noted Heart Score History: Slightly/Non-Suspicious ECG: Nonspecific Repolarization Age: </= 45 years Risk Factors: 1 or 2 Risk Factors Troponin: </= Normal Limit Score: 2 MDM MDM MDM Narrative Medical decision making narrative: Patient given 3 additional baby aspirin here. EKG, chest x-ray, lab work obtained. Lab Data Attestation: I reviewed the patient's lab results. Labs: Laboratory Results - last 24 hr 11/01/21 11/01/21 11/01/21 09:15 09:15 09:15 WBC 7.4 RBC 4.62 Hgb 12.5 L Hct 37.7 L MCV 81.6 MCH 27.1 MCHC 33.2 RDW Std Deviation 40.8 RDW Coeff of Polly 13.9 Plt Count 207 MPV 10.0 Immature Gran % (Auto) 0.100 Neut % (Auto) 65.0 Lymph % (Auto) 18.6 L [place] % (Auto) 10.4 H Eos % (Auto) 5.5 H Baso % (Auto) 0.4 Absolute Neuts (auto) 4.8 Absolute Lymphs (auto) 1.38 Nucleated RBC % 0 PT 13.8 INR 1.1 Sodium 141 Potassium 4.1 Chloride 109 H Carbon Dioxide 28.0 Anion Gap 4 L BUN 20 H Creatinine 0.99 Estim Creat Clear Calc 104.51 Est GFR (MDRD) Af Amer 105 Est GFR (MDRD) Non-Af 87 BUN/Creatinine Ratio 20.1 H Glucose 122 H Calcium 8.6 Troponin I High Sens 14 B-Natriuretic Peptide 11/01/21 11/01/21 09:15 11:45 WBC RBC Hgb Hct MCV MCH MCHC RDW Std Deviation RDW Coeff of Polly Plt Count MPV Immature Gran % (Auto) Neut % (Auto) Lymph % (Auto) [place] % (Auto) Eos % (Auto) Baso % (Auto) Absolute Neuts (auto) Absolute Lymphs (auto) Nucleated RBC % PT INR Sodium Potassium Chloride Carbon Dioxide Anion Gap BUN Creatinine Estim Creat Clear Calc Est GFR (MDRD) Af Amer Est GFR (MDRD) Non-Af BUN/Creatinine Ratio Glucose Calcium Troponin I High Sens 15 B-Natriuretic Peptide 326.1 H Radiography Chest X-Ray - ED: 1 View, Read by ED Physician, Chronic Changes and Cardiomegaly Diagnostic Testing: Clinical Impression(s) from Imaging Studies Chest X-Ray 11/01/21 10:04 IMPRESSION: Cardiomegaly. Mild central vascular congestion. Stable findings. Electronically Signed: Rg Brown MD, VAENSSA at 10:28 EDT , EKG Initial EKG: Attestation: I personally reviewed and interpreted this EKG as follows: Interpretation: Sinus Rhythm (Sinus 86 with a left bundle branch block. No acute ischemia. Unchanged when compared to prior study from August 2021.) Treatment and Re-Evaluation Narrative: Repeat evaluation patient resting comfortably. Test results discussed with him. Lab work is largely unremarkable. Initial troponin 14 and repeat troponin 15. BNP is 326. Chest x-ray reveals no focal infiltrate. Radiologist feels there may be mild vascular congestion. Patient will be given a 1 week course of Lasix as he states he is currently out. Patient will follow up with his primary care physician as well as cardiology. Return instructions are provided. Discharge Plan Triage Chief Complaint: Chest Pain ED Provider: Marielle Huitron Dx/Rx/DC Orders Clinical Impression: Chest pain, Mild congestive heart failure Instructions: ED Chest Pain, Noncardiac, ED Heart Failure, Congestive (CHF) Prescriptions: New furosemide [Lasix] 40 mg tablet 40 mg PO DAILY Qty: 7 RF: 0 No Action aspirin 81 MG tablet,chewable 81 mg PO DAILY@0800 RF: 0 metformin 1,000 MG tablet 1,000 mg PO BIDCM RF: 0 aripiprazole 5 MG tablet 5 mg PO DAILY RF: 0 carvedilol 3.125 MG tablet 3.125 mg PO BID Qty: 60 RF: 0 potassium chloride 10 mEq Capsule, Extended Release 10 meq PO DAILY RF: 0 Entresto 24-26 mg Tablet 0.5 tab PO BID RF: 0 furosemide [Lasix] 40 mg tablet 40 mg PO DAILY Qty: 30 RF: 2 Primary Care Provider: Linette Hopkins NP Referrals: Linette Hopkins NP, [facility] [Primary Care Provider] - 1-2 Weeks Disposition Disposition: Home, Self Care Discharge Date/Time: 11/01/21 13:13
[2021-11-01 13:09] VITALS: BP 122/83; PULSE 80; RESP 18; O2SAT 96
== END 2021-11-01 13:13 | disposition home or self-care (01) ==
PROVIDERS: Emergency Provider Emergency Medicine; PCP Clinical Nurse Specialist; Visit Provider Emergency Medicine
DX: R07.9 Chest pain, unspecified (principal); I11.0 Hypertensive heart disease with heart failure; I50.9 Heart failure, unspecified; I42.9 Cardiomyopathy, unspecified; E11.9 Type 2 diabetes mellitus without complications; E66.9 Obesity, unspecified; F17.200 Nicotine dependence, unspecified, uncomplicated; Z68.35 Body mass index [BMI] 35.0-35.9, adult; Z79.82 Long term (current) use of aspirin; Z79.84 Long term (current) use of oral hypoglycemic drugs; Z79.899 Other long term (current) drug therapy
CPT/HCPCS: 71045; 80048; 83880; 84484; 85025; 85610; 93005; 99285

== ENCOUNTER 2021-11-15 14:09 | Emergency (ER) | payer MEDICAID, SELFPAY ==
[2021-11-15 14:10] VITALS: BP 133/99; PULSE 80; RESP 14; TEMP 36.6; O2SAT 99; BMI 37.3
--- NOTE | 2021-11-15 14:32 | EKG12_ITS ---
Test Reason : CP Blood Pressure : / mmHG Vent. Rate : 089 BPM Atrial Rate : 089 BPM P-R Int : 168 ms QRS Dur : 166 ms QT Int : 422 ms P-R-T Axes : 068 062 198 degrees QTc Int : 513 ms Normal sinus rhythm Left bundle branch block Abnormal ECG Confirmed by DEDE CHICAS, ANNE ([id number]), editorial writer LONNY HERCULES ([id number]) on 11/16/2021 11:24:08 AM Referred By: Confirmed By:ANNE AGUAYO MD
--- NOTE | 2021-11-15 14:32 | RAD_ITS ---
STUDY: X-RAY CHEST REASON FOR EXAM: Male, 46 years old. SOB TECHNIQUE: single view of the chest was obtained COMPARISON: 11/01/2021 FINDINGS: No consolidation, pleural effusion or pneumothorax. Cardiac size appears prominent. Trachea is midline. RAD/Chest 1 View (Portable) IMPRESSION: No acute cardiopulmonary pathology. Electronically Signed: Fei Johnson MD at 15:09 EDT ,
--- NOTE | 2021-11-15 14:34 | EX.ED.DYSGE1 ---
HPI <CATERINA Schofield - Last Filed: 11/15/21 16:58> History of Present Illness Chief Complaint: Chest Pain Narrative Narrative: 46-year-old male with history of heart failure, tobacco use, diabetes, who presents to the emergency department with complaints of increased shortness of breath, chest pain. Patient states the symptoms been going on and off for multiple weeks however the last 48 hours, is been much worse. Patient states he was taking a nap today, woke up and is felt severely short of breath, chest burning. He does have a cough however states intermittently. Patient states clear phlegm. Patient denies any fevers or chills. PFSH <CATERINA Schofield - Last Filed: 11/15/21 16:58> PFSH Medical History Bipolar 1 disorder Cardiomyopathy CHF (congestive heart failure) Diabetes GERD (gastroesophageal reflux disease) HTN (hypertension) LBBB (left bundle branch block) Obesity (BMI 30-39.9) Sleep apnea Smoker Home Medications aripiprazole 5 mg PO DAILY 08/12/20 [History Last Taken 08/11/20] aspirin 81 mg PO DAILY@0800 08/12/20 [History Last Taken 08/24/21] metformin 1,000 mg PO BIDCM 08/12/20 [History Last Taken 08/24/21] carvedilol 3.125 mg PO BID #60 tab 08/15/20 [Rx Last Taken 08/24/21] Entresto 0.5 tab PO BID 08/25/21 [History Last Taken Unknown] potassium chloride 10 meq PO DAILY 08/25/21 [History Last Taken 08/24/21] furosemide [Lasix] 40 mg PO DAILY #30 tab 08/28/21 [Rx Last Taken Unknown] furosemide [Lasix] 40 mg PO DAILY #7 tab 11/01/21 [Rx Last Taken Unknown] furosemide [Lasix] 40 mg PO DAILY #30 tab 11/15/21 [Rx Last Taken Unknown] Allergy/AdvReac Type Severity Reaction Status Date / Time promethazine [From Phenergan] Allergy Rash Verified 11/15/21 14:12 Penicillins AdvReac Upset Verified 11/15/21 14:12 Stomach Family History Mother CVA (cerebral vascular accident) Surgical History History of left heart catheterization (LHC) (~08/14/20) Social History Smoking Status: Light Smoker (<10/day) ROS <CATERINA Schofield - Last Filed: 11/15/21 16:58> ROS ED ROS Narrative Constitutional: Negative for fever, chills, weight loss, weakness Eyes: Negative for vision loss, vision change, double vision ENT: Negative for any sore throat, ear pain, congestion Cardiovascular: Negative for any chest pain, tightness, palpitations Respiratory: Negative for any hemoptysis, orthopnea. Positive for cough, sputum production, dyspnea, dyspnea on exertion Gastrointestinal: Negative for any abdominal pain, nausea, vomiting, diarrhea, constipation, blood in stool, blood in vomit : Negative for any urinary frequency, dysuria, retention, blood in urine Muscle skeletal: Negative for any muscle joint pain, stiffness, myalgias, arthralgias, neck pain, back pain Neurological: Negative for any headache, syncope, numbness or tingling, dizziness Skin: Negative for any rashes, lumps, itching, abrasions, lacerations Psychiatric: Negative for any depression, anxiety, stress, suicidal ideation, homicidal ideation Hematologic: Negative for any easy bruising, excessive bruising, easy bleeding Allergies: Negative for any eczema, hives, rash EXAM <CATERINA Schofield - Last Filed: 11/15/21 16:58> Physical Exam Narrative Exam Narrative: Vital signs reviewed. HEET: Head normocephalic atraumatic, TMs clear bilaterally. Posterior pharynx is clear, moist mucous membranes. Nares clear bilaterally. Neck: Supple with no lymphadenopathy or tenderness. No signs of meningismus, negative jolt sign. Cardiac: no murmurs gallops or rubs, equal peripheral pulses bilaterally. Tachycardic Respiratory: Lungs clear to auscultation bilaterally. Diminished lung sounds in the bases. No chest tenderness. Abdomen: Soft, nontender, nondistended. No abdominal bruit or pulsatile masses. No hepatosplenomegaly Extremities: No peripheral edema, no signs of gross trauma or deformity. Active full range of motion of all extremities. Neuro: Cranial nerves II through XII intact, no focal neurological deficits. Skin: Clean dry and intact with no rash, purpura, petechiae, vesicles or pustules. Backs/flank: No CVA tenderness, no midline spinal tenderness, no deformity. Psych: Normal mood and affect. No SI, HI or acute psychosis. Const Vital Signs: 11/15/21 14:10 11/15/21 14:42 11/15/21 14:52 Temperature 97.8 F Temperature Source Temporal Pulse Rate 80 77 Respiratory Rate 14 24 H Respiratory Effort Short of Breath Respiratory Pattern Tachypnea Tachypnea Blood Pressure 133/99 H Blood Pressure Mean 110 Pulse Ox 99 Oxygen Delivery Method Room Air Room Air 11/15/21 15:09 11/15/21 16:10 Temperature Temperature Source Pulse Rate 104 H 87 Respiratory Rate 30 H 23 H Respiratory Effort Respiratory Pattern Blood Pressure Blood Pressure Mean Pulse Ox 99 95 Oxygen Delivery Method Room Air Room Air Positive well nourished, well developed and obese General Appearance ED: well developed Nutritional Appearance: obese <Dr. Mary Kay Ellison DO - Last Filed: 11/15/21 17:01> Physical Exam Const Vital Signs: 11/15/21 14:10 11/15/21 14:42 11/15/21 14:52 Temperature 97.8 F Temperature Source Temporal Pulse Rate 80 77 Respiratory Rate 14 24 H Respiratory Effort Short of Breath Respiratory Pattern Tachypnea Tachypnea Blood Pressure 133/99 H Blood Pressure Mean 110 Pulse Ox 99 Oxygen Delivery Method Room Air Room Air 11/15/21 15:09 11/15/21 16:10 Temperature Temperature Source Pulse Rate 104 H 87 Respiratory Rate 30 H 23 H Respiratory Effort Respiratory Pattern Blood Pressure Blood Pressure Mean Pulse Ox 99 95 Oxygen Delivery Method Room Air Room Air MDM <CATERINA Schofield - Last Filed: 11/15/21 16:58> [facility] Narrative Medical decision making narrative: Patient appears well, patient appears nontoxic, vital signs are stable. Patient presents the [place] apartment with minimal respiratory distress, tachypnea, slightly anxious. Patient did receive a full cardiac, respiratory work-up. Patient's chest x-ray read by the ER attending shows no acute cardiopulmonary pathology. Patient was negative for any COVID-19 or influenza. Patient's laboratory studies shows 2 negative high-sensitivity troponins, patient CBC, chemistries were unremarkable, patient's BNP was slightly elevated at 550 however this is an improvement since earlier in the year. Patient's D-dimer was negative. EKG was unremarkable. EKG was unchanged. Patient was given breathing treatments with relief. At this time, there is no evidence of any IN, ACS, PE. Patient will be diagnosed with chest pain, dyspnea, anxiety. He will follow-up closely with his PCP. He was happy with the plan of care and instructed to return for any worsening chest pain, shortness of breath fever chills nausea vomiting. Patient stable for discharge Lab Data Attestation: I reviewed the patient's lab results. Labs: Laboratory Results - last 24 hr 11/15/21 11/15/21 11/15/21 14:45 14:45 14:45 WBC 8.2 RBC 4.76 Hgb 13.2 Hct 38.9 L MCV 81.7 MCH 27.7 MCHC 33.9 RDW Std Deviation 41.1 RDW Coeff of Polly 13.6 Plt Count 196 MPV 10.0 Immature Gran % (Auto) 0.400 Neut % (Auto) 62.4 Lymph % (Auto) 22.3 [place] % (Auto) 9.9 Eos % (Auto) 4.6 Baso % (Auto) 0.4 Absolute Neuts (auto) 5.1 Absolute Lymphs (auto) 1.83 Nucleated RBC % 0 D-Dimer Quant (PE/DVT) 0.42 Sodium 143 Potassium 3.7 Chloride 111 H Carbon Dioxide 28.0 Anion Gap 4 L BUN 20 H Creatinine 1.15 Estim Creat Clear Calc 89.03 Est GFR (MDRD) Af Amer 88 Est GFR (MDRD) Non-Af 73 BUN/Creatinine Ratio 17.4 Glucose 174 H Calcium 8.6 Troponin I High Sens 29 B-Natriuretic Peptide 11/15/21 11/15/21 14:45 16:15 WBC RBC Hgb Hct MCV MCH MCHC RDW Std Deviation RDW Coeff of Polly Plt Count MPV Immature Gran % (Auto) Neut % (Auto) Lymph % (Auto) [place] % (Auto) Eos % (Auto) Baso % (Auto) Absolute Neuts (auto) Absolute Lymphs (auto) Nucleated RBC % D-Dimer Quant (PE/DVT) Sodium Potassium Chloride Carbon Dioxide Anion Gap BUN Creatinine Estim Creat Clear Calc Est GFR (MDRD) Af Amer Est GFR (MDRD) Non-Af BUN/Creatinine Ratio Glucose Calcium Troponin I High Sens 33 B-Natriuretic Peptide 550.4 H Radiography Chest X-Ray - ED: 2 View Diagnostic Testing: Clinical Impression(s) from Imaging Studies Chest X-Ray 11/15/21 14:32 IMPRESSION: No acute cardiopulmonary pathology. Electronically Signed: Fei Johnson MD at 15:09 EDT Reading Location ID and State: [facility] / [place] Tel , Service support , <Dr. Mary Kay Ellison, DO - Last Filed: 11/15/21 17:01> [facility] Narrative Medical decision making narrative: I have personally performed a face to face assessment of the patient and have reviewed the MICHAEL Note. I performed a substantive portion of the visit including all aspects of the following. My almodovar findings include: History is [patient presents with chest discomfort that he has had off and on for several weeks but worse over the last 2 days. He describes a pressure and a heaviness that radiates into his left shoulder. He does feel somewhat short of breath with activity and exertion. Patient states he has had similar symptoms in the past but no etiology was found. He does have history of cardiomyopathy. Patient tells me he had a heart catheterization in [place] about a year ago that was clean. Patient states it was done through his right wrist. Patient also with history of anxiety and depression. Patient states that while in triage she was quite panicky. He denies recent travel or surgery. No history of PE or DVT. He does wear home oxygen at night. He has had a slight cough. He denies any COVID exposures.] Exam is [HEENT-PERRLA, EOMI. Cranial nerves II through XII grossly intact. TMs clear. Mucous membranes moist. No adenopathy. Cardiovascular-regular rate and rhythm without murmur or ectopy Lungs-clear to auscultation, chest wall stable without crepitus or subcu emphysema Abdomen-normoactive bowel sounds, soft, nontender, no rebound or rigidity, no peritoneal signs. Extremities-intact ?4, normal range of motion, normal pulses, atraumatic] Medical Decison Making [IV line established on arrival. Patient placed on alarm security or surveillance monitor. EKG obtained showed a sinus rhythm with a left bundle branch block which is old. No other acute changes noted. Patient's troponin was normal. D-dimer was normal. Chest x-ray was unremarkable. I did give him a milligram of Ativan as he initially complained of feeling quite anxious. This did markedly improve his symptoms. Currently rates his pain a 2 out of 10. We did do a delta troponin which also was normal. Patient will be discharged to home. Given that he had a heart cath within the last year normal troponin despite more than 24 hours of pain I do not feel his pain is cardiac. Suspected a component of anxiety. Patient to follow-up with his primary care physician in 3 to 5 days.] Other additions or changes: [None] Lab Data Labs: Laboratory Results - last 24 hr 11/15/21 11/15/21 11/15/21 14:45 14:45 14:45 WBC 8.2 RBC 4.76 Hgb 13.2 Hct 38.9 L MCV 81.7 MCH 27.7 MCHC 33.9 RDW Std Deviation 41.1 RDW Coeff of Polly 13.6 Plt Count 196 MPV 10.0 Immature Gran % (Auto) 0.400 Neut % (Auto) 62.4 Lymph % (Auto) 22.3 [place] % (Auto) 9.9 Eos % (Auto) 4.6 Baso % (Auto) 0.4 Absolute Neuts (auto) 5.1 Absolute Lymphs (auto) 1.83 Nucleated RBC % 0 D-Dimer Quant (PE/DVT) 0.42 Sodium 143 Potassium 3.7 Chloride 111 H Carbon Dioxide 28.0 Anion Gap 4 L BUN 20 H Creatinine 1.15 Estim Creat Clear Calc 89.03 Est GFR (MDRD) Af Amer 88 Est GFR (MDRD) Non-Af 73 BUN/Creatinine Ratio 17.4 Glucose 174 H Calcium 8.6 Troponin I High Sens 29 B-Natriuretic Peptide 11/15/21 11/15/21 14:45 16:15 WBC RBC Hgb Hct MCV MCH MCHC RDW Std Deviation RDW Coeff of Polly Plt Count MPV Immature Gran % (Auto) Neut % (Auto) Lymph % (Auto) [place] % (Auto) Eos % (Auto) Baso % (Auto) Absolute Neuts (auto) Absolute Lymphs (auto) Nucleated RBC % D-Dimer Quant (PE/DVT) Sodium Potassium Chloride Carbon Dioxide Anion Gap BUN Creatinine Estim Creat Clear Calc Est GFR (MDRD) Af Amer Est GFR (MDRD) Non-Af BUN/Creatinine Ratio Glucose Calcium Troponin I High Sens 33 B-Natriuretic Peptide 550.4 H Radiography Chest X-Ray - ED: 1 View Diagnostic Testing: Clinical Impression(s) from Imaging Studies Chest X-Ray 11/15/21 14:32 IMPRESSION: No acute cardiopulmonary pathology. Electronically Signed: Fei Johnson MD at 15:09 EDT , 1 view chest x-ray obtained interpreted by myself no acute disease process. Radiology in agreement. EKG Initial EKG: Attestation: I personally reviewed and interpreted this EKG as follows: Comments: Sinus rhythm with a rate of 89 bpm with left bundle branch block Prior EKG tracings: available for review Prior: Unchanged Discharge Plan Triage Chief Complaint: Chest Pain ED Midlevel Provider: Surya Hathaway ED Provider: Mary Kay Ellison Dx/Rx/DC Orders Clinical Impression: Chest pain, Acute dyspnea, Anxiety Instructions: ED Anxiety Reaction, ED Chest Pain, Uncertain Cause, ED Dyspnea Prescriptions: New furosemide [Lasix] 40 mg tablet 40 mg PO DAILY Qty: 30 RF: 0 No Action aspirin 81 MG tablet,chewable 81 mg PO DAILY@0800 RF: 0 metformin 1,000 MG tablet 1,000 mg PO BIDCM RF: 0 aripiprazole 5 MG tablet 5 mg PO DAILY RF: 0 carvedilol 3.125 MG tablet 3.125 mg PO BID Qty: 60 RF: 0 potassium chloride 10 mEq Capsule, Extended Release 10 meq PO DAILY RF: 0 Entresto 24-26 mg Tablet 0.5 tab PO BID RF: 0 furosemide [Lasix] 40 mg tablet 40 mg PO DAILY Qty: 30 RF: 2 furosemide [Lasix] 40 mg tablet 40 mg PO DAILY Qty: 7 RF: 0 Primary Care Provider: Linette Hopknis NP Referrals: Linette Hopkins K[facility]OCKER OUT, [facility]-C [Primary Care Provider] - 3-5 Days Disposition Disposition: Home, Self Care
[2021-11-15] MEDS: Albuterol 2.5 MG/3 ML VIAL.NEB. INHALATION (14:40)
[2021-11-15] MEDS: Ipratropium/Albuterol Sulfate 3 ML AMPUL.NEB INHALATION (14:40)
[2021-11-15 14:42] VITALS: PULSE 77; RESP 24
[2021-11-15 14:52] VITALS: O2SAT 98
[2021-11-15 14:54] LABS: Absolute Lymphocyte Count 1.83 X10^3/uL (0.83-4.51); Absolute Neutrophil Count 5.1 X10^3/uL (2.0-7.7); Basophil# 0.03 X10^3/uL; Basophil% 0.4 % (0-1); Eosinophil# 0.38 X10^3/uL; Eosinophils% 4.6 % (0-5); Hematocrit 38.9 % (40-54); Hemoglobin 13.2 g/dL (13.0-16.5); Lymphocyte # 1.83 X10^3/ul (0.83-4.51); Lymphocyte % 22.3 % (19-41); Mean Corp Hgb Conc 33.9 g/dL (32-36); Mean Corpuscular Hgb 27.7 pg (27.0-32.0); Mean Corpuscular Volume 81.7 fL (80-94); Monocyte# 0.81 X10^3/uL; Monocyte% 9.9 % (0-10); NRBC Flagged by Analyzer 0 % (0-5); Neutrophil # 5.11 X10^3/uL (2.7-7.7); Neutrophil % 62.4 % (47-70); Platelet Count 196 K/mm3 (150-450); RBC Distribution Width CV 13.6 % (11.6-14.6); RBC Distribution Width SD 41.1 fl (35.1-43.9); Red Blood Count 4.76 M/mm3 (4.6-6.2); White Blood Count 8.2 K/mm3 (4.4-11.0)
[2021-11-15 15:05] LABS: D-Dimer Quantitative (DVT/PE) 0.42 FEU/ug/m (0.27-0.49)
[2021-11-15 15:09] VITALS: PULSE 104; RESP 30; O2SAT 99
[2021-11-15 15:10] LABS: BNP,B-Type NATRIURETIC PEPTIDE 550.4 pg/mL (0-100)
[2021-11-15 15:11] LABS: Anion Gap 4 (5-15); BUN 20 mg/dL (7-18); BUN/Creat Ratio 17.4 RATIO (10-20); Calcium,Total 8.6 mg/dL (8.5-10.1); Chloride 111 mmol/L (98-107); Creatinine, Serum 1.15 mg/dL (0.70-1.30); EST Glomerular Filtration Rate 73 mL/min (>60); Est Glom Filt Rate - Afr Amer 88 mL/min (>60); Estimated Creatinine Clearance 89.03 ml/min; Glucose 174 mg/dL (74-106); Potassium 3.7 mmol/L (3.5-5.1); Sodium Level 143 mmol/L (136-145); Troponin-I HS 29 pg/mL (3.0-78.0)
[2021-11-15] MEDS: LORazepam 2 MG/ML Syringe 1 MG IV (15:28)
[2021-11-15 16:10] VITALS: PULSE 87; RESP 23; O2SAT 95
[2021-11-15 16:48] LABS: Troponin-I HS 33 pg/mL (3.0-78.0)
== END 2021-11-15 17:03 | disposition home or self-care (01) ==
PROVIDERS: Nurse Practitioner; Emergency Provider Emergency Medicine; PCP Clinical Nurse Specialist; Visit Provider Emergency Medicine
DX: R07.9 Chest pain, unspecified (principal); I11.0 Hypertensive heart disease with heart failure; I50.9 Heart failure, unspecified; F31.9 Bipolar disorder, unspecified; E11.9 Type 2 diabetes mellitus without complications; R06.02 Shortness of breath; E66.9 Obesity, unspecified; F41.9 Anxiety disorder, unspecified; F17.200 Nicotine dependence, unspecified, uncomplicated; Z68.37 Body mass index [BMI] 37.0-37.9, adult; Z79.82 Long term (current) use of aspirin; Z79.84 Long term (current) use of oral hypoglycemic drugs; Z79.899 Other long term (current) drug therapy
CPT/HCPCS: 71045; 80048; 83880; 84484; 85025; 85379; 87428; 93005; 94640; 96374; 99283; A4216

== ENCOUNTER 2022-04-08 11:25 | Emergency (ER) | payer MEDICAID, SELFPAY ==
[2022-04-08 11:26] VITALS: BP 144/86; PULSE 108; RESP 18; TEMP 36.9; O2SAT 97; BMI 39.9
--- NOTE | 2022-04-08 11:37 | EKG12_ITS ---
Test Reason : SOB Blood Pressure : / mmHG Vent. Rate : 099 BPM Atrial Rate : 099 BPM P-R Int : 158 ms QRS Dur : 166 ms QT Int : 384 ms P-R-T Axes : 049 042 213 degrees QTc Int : 492 ms Normal sinus rhythm Left bundle branch block Abnormal ECG Confirmed by DEDE CHICAS, ANNE ([id number]), society editor LONNY HERCULES ([id number]) on 04/12/2022 1:14:16 PM Referred By: CHELLY Confirmed By:ANNE AGUAYO MD
--- NOTE | 2022-04-08 12:20 | EDS_ITS ---
HPI History of Present Illness Chief Complaint: Shortness of Breath Narrative Narrative: Patient presents with a about a week of symptoms. He states he started feeling tired maybe a week ago. He has had some myalgias. He has had runny nose. No sore throat. He has had a headache. He started with a cough over the last few days but no sputum production. He is not actually short of breath. He has had mild nausea but he has been able to eat and drink. No diarrhea. He states he h as had diarrhea in the past but not recently. He had 1 COVID shot a year or more ago. He has not had flu vaccine. He does not know if he is exposed anybody. Of note the patient stated he really has no medical problems at all. Then I look at his chart and I find out he has quite a few. He is not the best informant for details but he is ANO x3 [facility] Medical History Bipolar 1 disorder Cardiomyopathy CHF (congestive heart failure) Diabetes GERD (gastroesophageal reflux disease) HTN (hypertension) LBBB (left bundle branch block) Obesity (BMI 30-39.9) Sleep apnea Smoker Home Medications aripiprazole 5 mg tablet 5 mg PO DAILY 08/12/20 [History Last Taken 08/11/20] aspirin 81 mg chewable tablet 81 mg PO DAILY@0800 heart 08/12/20 [History Last Taken 08/24/21] metformin 1,000 mg tablet 1,000 mg PO BIDCM dm 08/12/20 [History Last Taken 08/24/21] carvedilol 3.125 mg tablet 3.125 mg PO BID #60 tabs 08/15/20 [Rx Last Taken 08/24/21] potassium chloride 10 mEq capsule,extended release 10 meq PO DAILY supplement 08/25/21 [History Last Taken 08/24/21] sacubitril 24 mg-valsartan 26 mg tablet (Entresto) 0.5 tab PO BID hf 08/25/21 [History Last Taken Unknown] furosemide 40 mg tablet (Lasix) 40 mg PO DAILY #30 tabs 08/28/21 [Rx Last Taken Unknown] furosemide 40 mg tablet (Lasix) 40 mg PO DAILY #7 tabs 11/01/21 [Rx Last Taken Unknown] furosemide 40 mg tablet (Lasix) 40 mg PO DAILY #30 tabs 11/15/21 [Rx Last Taken Unknown] ondansetron 4 mg disintegrating tablet 4 mg PO Q8H PRN nausea and vomiting #10 tabs 04/08/22 [Rx Last Taken Unknown] Allergy/AdvReac Type Severity Reaction Status Date / Time promethazine [From Phenergan] Allergy Rash Verified 04/08/22 11:25 Penicillins AdvReac Upset Verified 04/08/22 11:25 Stomach Family History Mother CVA (cerebral vascular accident) Surgical History History of left heart catheterization (LHC) (~08/14/20) Social History Smoking Status: Light Smoker (<10/day) ROS ROS ED Constitutional Constitutional ED: Reports subjective Eyes Eyes: Denies change in vision ENT ENT ED: Reports rhinorrhea; Denies sore throat Cardiovascular Cardiovascular: Denies chest pain, orthopnea, palpitations, paroxysmal nocturnal dyspnea or racing heartbeat Respiratory/Chest Respiratory/Chest: Reports cough; Denies dyspnea, dyspnea on exertion, orthopnea, paroxysmal nocturnal dyspnea or sputum Gastrointestinal Gastrointestinal: Reports nausea; Denies abdominal pain, diarrhea or vomiting Genitourinary Genitourinary ED: Denies dysuria or hematuria Musculoskeletal Musculoskeletal: Reports myalgias Neurologic Neurologic: Reports headache(s); Denies paresthesias or weakness Endocrine Endocrinology: Denies polydipsia or polyuria Hematologic/Lymphatic Hematologic/Lymphatic: Denies easy bleeding or easy bruising Allergic/Immunologic Allergic/Immunologic ED: Denies urticaria EXAM Physical Exam Const Vital Signs: 04/08/22 11:26 Temperature 98.4 F Temperature Source Temporal Pulse Rate 108 H Respiratory Rate 18 Blood Pressure 144/86 H Blood Pressure Mean 105 Pulse Ox 97 Oxygen Delivery Method Room Air Positive well nourished and well developed Constitutional Narrative: Patient's laying flat during her normal conversation. No obvious dyspnea. General Appearance ED: well developed and NAD; Negative for cyanotic or diaphoretic HEENT Reports moist mucous membranes HEENT Narrative: No exudate. No sinus tenderness. Eyes PERRL and EOMs intact bilaterally Neck no JVD Chest Wall inspection of chest normal Resp normal respiratory effort and clear to auscultation bilaterally Resp Narrative: Patient has reported a cough but not coughing at this time. His lungs actually sound clear. Auscultation: Negative for rales, rhonchi or wheezes Cardio regular rate, regular rhythm and no murmurs GI normal to inspection, nondistended, normoactive bowel sounds and non-tender GI Narrative: Abdomen is obese but otherwise benign. Back/Spine no CVA tenderness Extremity normal to inspection General Extremety ED: Negative for tenderness Neuro Sensorium / Orientation: alert Psych mental status grossly normal Skin no rashes or lesions noted MDM MDM MDM Narrative Medical decision making narrative: Patient's x-ray shows no acute process. COVID is positive. This is consistent with his history. But his symptoms likely started 5 to 7 days ago. I do not think he is a great candidate for treatments. He is not wheezing. He is not hypoxic. His biggest complaint is actually malaise and headaches. He is also had some nausea which I can help him with. We discussed reasons to return. Lab Data Attestation: I reviewed the patient's lab results. Radiography Diagnostic Testing: Clinical Impression(s) from Imaging Studies Chest X-Ray 04/08/22 12:44 IMPRESSION: Normal x-ray examination of the chest. Electronically Signed: Umer Davis MD at 13:02 EDT , X-ray looked at by me and read by radiology shows no acute process. Discharge Plan Triage Chief Complaint: Shortness of Breath ED Provider: Jose Bolden Dx/Rx/DC Orders Clinical Impression: COVID-19, Nausea Instructions: Coronavirus Disease 2019 (COVID-19): Caring for Yourself or Others Prescriptions: New ondansetron 4 mg tablet,disintegrating 4 mg PO Q8H PRN (Reason: nausea and vomiting) Qty: 10 0RF No Action aspirin 81 MG tablet,chewable 81 mg PO DAILY@0800 metformin 1,000 MG tablet 1,000 mg PO BIDCM aripiprazole 5 MG tablet 5 mg PO DAILY carvedilol 3.125 MG tablet 3.125 mg PO BID Qty: 60 0RF potassium chloride 10 mEq Capsule, Extended Release 10 meq PO DAILY Entresto 24-26 mg Tablet 0.5 tab PO BID furosemide [Lasix] 40 mg tablet 40 mg PO DAILY Qty: 30 2RF furosemide [Lasix] 40 mg tablet 40 mg PO DAILY Qty: 7 0RF furosemide [Lasix] 40 mg tablet 40 mg PO DAILY Qty: 30 0RF Primary Care Provider: Linette Hopkins NP Referrals: Linette Hopkins HEALTH INFORMATION TECHNICIAN, HEALTH INFORMATION TECHNICIAN-C [Primary Care Provider] - 3-5 Days if not improving Disposition Disposition: Home, Self Care
[2022-04-08] MEDS: Ondansetron ODT 4 MG Tablet PO (12:41)
[2022-04-08] MEDS: Acetaminophen 500 MG Tablet 1000 MG PO (12:42)
--- NOTE | 2022-04-08 12:44 | RAD_ITS ---
STUDY: X-RAY CHEST REASON FOR EXAM: Male, 46 years old. Cough TECHNIQUE: Single AP portable view of the chest. COMPARISON: Comparison is made with prior study dated 11/15/2021. FINDINGS: The lungs are clear and expanded. There is no demonstrated pleural abnormality. Normal size heart. Normal mediastinum and brent. Normal visualized pulmonary arteries. Normal visualized aortic arch and descending thoracic aorta. There are degenerative changes of the visualized thoracic spine. Normal visualized ribs, clavicles, and shoulders. There is no demonstrated abnormality of the visualized soft tissue structures of the upper abdomen. RAD/Chest 1 View (Portable) IMPRESSION: Normal x-ray examination of the chest. Electronically Signed: Umer Davis MD at 13:02 EDT ,
[2022-04-08 13:47] VITALS: O2SAT 98
== END 2022-04-08 13:47 | disposition home or self-care (01) ==
PROVIDERS: Emergency Provider Emergency Medicine; PCP Clinical Nurse Specialist; Visit Provider Emergency Medicine
DX: U07.1 COVID-19 (principal); I11.0 Hypertensive heart disease with heart failure; I50.9 Heart failure, unspecified; E11.9 Type 2 diabetes mellitus without complications; E66.9 Obesity, unspecified; F17.200 Nicotine dependence, unspecified, uncomplicated; Z68.39 Body mass index [BMI] 39.0-39.9, adult; Z79.84 Long term (current) use of oral hypoglycemic drugs; Z79.899 Other long term (current) drug therapy
CPT/HCPCS: 71045; 87428; 93005; 99283

== ENCOUNTER 2022-08-22 12:17 | Emergency (ER) | payer MEDICAID, SELFPAY ==
[2022-08-22 12:19] VITALS: BP 143/74; PULSE 88; RESP 20; TEMP 36.8; O2SAT 95; BMI 40.1
--- NOTE | 2022-08-22 12:39 | EX.ED.VIS.UR ---
HPI HPI - URI History of Present Illness Chief Complaint: Cough Informant: patient Onset/Context/Timing Onset: Days (3) Context: Gradual Onset Timing: Continuous Quality: Irritating Location: Chest Worsened by: - (Cold air) Relieved by: - (Nothing) Associated Symptoms Associated Symptoms: Positive for Headache, Nausea, Shortness of Breath and Productive Cough; Negative for Nasal Congestion, Sinus Pressure, Vomiting, Diarrhea, Chest Pain, Nonproductive cough or Hemoptysis Narrative Narrative: Patient presents with cough and chest congestion that has been getting worse over the last 3 days. Patient describes as irritating. Patient states it is worse when he goes out into the cold air. Patient states he is coughing up some clear sputum. Patient admits to a headache. Patient also admits to some shortness of breath. Patient also admits to some nausea but denies any vomiting or diarrhea. Patient denies any chest pain. Patient does admit to some rhinorrhea and sore throat. Patient states she was having some subjective fevers and sweats over the last couple days. ROS ROS ED Constitutional Constitutional ED: Reports fever(s), subjective and sweats; Denies chills Eyes Eyes: Denies blurry vision or change in vision ENT ENT ED: Reports rhinorrhea and sore throat Cardiovascular Cardiovascular: Denies chest pain or palpitations Respiratory/Chest Respiratory/Chest: Reports cough and dyspnea Gastrointestinal Gastrointestinal: Reports nausea; Denies vomiting Genitourinary Genitourinary ED: Denies dysuria or hematuria Musculoskeletal Musculoskeletal: Reports neck pain; Denies back pain Integumentary Denies abscess or rash Neurologic Neurologic: Denies headache(s) or weakness Allergic/Immunologic Allergic/Immunologic ED: Denies mouth swelling or urticaria PFSH PFSH Medical History Bipolar 1 disorder Cardiomyopathy CHF (congestive heart failure) Diabetes GERD (gastroesophageal reflux disease) HTN (hypertension) LBBB (left bundle branch block) Obesity (BMI 30-39.9) Sleep apnea Smoker Home Medications metformin 1,000 mg tablet 1,000 mg PO BIDCM dm 08/12/20 [History Last Taken 08/24/21] carvedilol 3.125 mg tablet 3.125 mg PO BID #60 tabs 08/15/20 [Rx Last Taken 08/24/21] sacubitril 24 mg-valsartan 26 mg tablet (Entresto) 1 tab PO BID hf 08/25/21 [History Last Taken Unknown] furosemide 40 mg tablet (Lasix) 40 mg PO DAILY #30 tabs 11/15/21 [Rx Last Taken Unknown] atorvastatin 80 mg tablet 80 mg PO QHS 08/22/22 [History Last Taken Unknown] ipratropium 20 mcg-albuterol 100 mcg/actuation mist for inhalation (Combivent Respimat) 2 puff inhalation Q4H PRN Wheezing 08/22/22 [History Last Taken Unknown] Allergy/AdvReac Type Severity Reaction Status Date / Time promethazine [From Phenergan] Allergy Rash Verified 08/22/22 12:18 Penicillins AdvReac Upset Verified 08/22/22 12:18 Stomach Family History Mother CVA (cerebral vascular accident) Surgical History History of left heart catheterization (LHC) (~08/14/20) Social History Smoking Status: Current every day smoker tobacco type: cigarettes EXAM Physical Exam Const Vital Signs: 08/22/22 12:19 08/22/22 12:23 08/22/22 12:49 Temperature 98.3 F Temperature Source Oral Pulse Rate 88 80 Respiratory Rate 20 H 18 Respiratory Effort Short of Breath Respiratory Pattern Normal Blood Pressure 143/74 H Blood Pressure Mean 97 Pulse Ox 95 Oxygen Delivery Method Room Air 08/22/22 13:27 Temperature 98 F Temperature Source Temporal Pulse Rate 84 Respiratory Rate 18 Respiratory Effort Respiratory Pattern Blood Pressure 110/68 Blood Pressure Mean 82 Pulse Ox 92 Oxygen Delivery Method Room Air Positive well nourished, well developed and obese General Appearance ED: well developed and NAD Nutritional Appearance: obese HEENT Reports moist mucous membranes Neck supple and no JVD Resp normal respiratory effort Auscultation: wheezes throughout Cardio regular rate and regular rhythm GI normal to inspection, nondistended, normoactive bowel sounds and non-tender Palpation: soft Extremity normal to inspection General Extremety ED: Negative for edema or tenderness General Extremity: Negative for edema Neuro oriented x3, CN's II-XII intact bilaterally and no sensory deficits noted Sensorium / Orientation: alert Motor Exam: strength 5/5 throughout Psych mental status grossly normal Skin no rashes or lesions noted MDM MDM MDM Narrative Medical decision making narrative: Differential diagnosis includes viral upper respiratory infection, COVID infection, influenza infection, pneumonia, and bronchitis. Chest x-ray will be obtained to assess for pneumonia. COVID-19 rapid antigen will be obtained to assess for COVID infection. Influenza A and influenza B antigens will be obtained to assess for influenza infection. Lab Data Labs: COVID-19 rapid antigen was reviewed and was negative. Influenza A and influenza B rapid antigens were reviewed and were negative. Radiography Chest X-Ray - ED: 2 View, Read by ED Physician, Read by Radiologist and No Acute Disease Diagnostic Testing: Clinical Impression(s) from Imaging Studies Chest X-Ray 08/22/22 13:05 IMPRESSION: Mild atelectasis or inflammation in the lungs. Electronically Signed: Mony Valles MD at 13:14 EDT Reading Location ID and State: [facility] / [place] Tel , Service support , [place] and lateral chest x-ray was obtained. There are 2 views. On my independent interpretation, lung harrison show mild atelectasis or inflammation. There is normal cardiac silhouette. Bony thorax is normal. There is no acute process noted. Radiologist also interpreted the x-ray and agrees. Treatment and Re-Evaluation Narrative: Patient was given a DuoNeb aerosol here. Patient is feeling better on reevaluation. Patient was advised of his findings. Patient was instructed to take [id number] Mucinex as needed. Patient was instructed to follow-up with his primary care physician in 5 to 7 days. Patient understood and was agreeable with the plan. All questions were answered. Discharge Plan Triage Chief Complaint: Cough Other Complaint: Chest Other Fever Shortness of Breath ED Provider: Anthony Llamas Dx/Rx/DC Orders Clinical Impression: Viral upper respiratory tract infection, Cough Instructions: ED URI, Viral, No Abx (Adult) Prescriptions: No Action metformin 1,000 MG tablet 1,000 mg PO BIDCM carvedilol 3.125 MG tablet 3.125 mg PO BID Qty: 60 0RF Entresto 24-26 mg Tablet 1 tab PO BID furosemide [Lasix] 40 mg tablet 40 mg PO DAILY Qty: 30 0RF Combivent Respimat 20-100 mcg/actuation mist 2 puff INHALATION Q4H PRN (Reason: Wheezing) Label Comments: Inhale 1 Puff as instructed four times daily. atorvastatin 80 mg tablet 80 mg PO QHS Primary Care Provider: Leia Live Referrals: Linette Hopkins UNCLAIMED PROPERTY OFFICER, UNCLAIMED PROPERTY OFFICER-C [Non-Staff] - 5-7 Days Activity Restrictions/Additional Instructions: You may use [id number] Mucinex or Mucinex DM as needed for cough. Continue to use your inhalers as needed. Disposition Disposition: Home, Self Care
[2022-08-22] MEDS: Ipratropium/Albuterol Sulfate 3 ML AMPUL.NEB INHALATION (12:46)
[2022-08-22 12:49] VITALS: PULSE 80; RESP 18
--- NOTE | 2022-08-22 13:05 | RAD_ITS ---
HISTORY: Cough. TECHNIQUE: XR Chest 2 Views. COMPARISON: 04/08/2022. FINDINGS: CARDIOMEDIASTINAL BORDERS: Cardiac silhouette within normal limits in size with biventricular pacemaker noted. Mediastinal contour unremarkable. LUNGS: Mild linear opacities in the left perihilar and left basilar lungs. PLEURA: No pleural effusion or pneumothorax seen. OSSEOUS STRUCTURES: Mild degenerative change. RAD/Chest PA and Lateral IMPRESSION: Mild atelectasis or inflammation in the lungs. Electronically Signed: Mony Valles MD at 13:14 EDT ,
[2022-08-22 13:27] VITALS: BP 110/68; PULSE 84; RESP 18; TEMP 36.6; O2SAT 92
[2022-08-22 14:34] VITALS: BP 127/76; PULSE 91; RESP 16; O2SAT 95
== END 2022-08-22 14:35 | disposition home or self-care (01) ==
PROVIDERS: Emergency Provider Emergency Medicine; PCP Internal Medicine; Visit Provider Emergency Medicine
DX: J06.9 Acute upper respiratory infection, unspecified (principal); I42.9 Cardiomyopathy, unspecified; I50.9 Heart failure, unspecified; I11.0 Hypertensive heart disease with heart failure; E11.9 Type 2 diabetes mellitus without complications; F17.210 Nicotine dependence, cigarettes, uncomplicated; G47.30 Sleep apnea, unspecified; E66.9 Obesity, unspecified; Z79.84 Long term (current) use of oral hypoglycemic drugs; Z79.899 Other long term (current) drug therapy
CPT/HCPCS: 71046; 87428; 94640; 99283

== ENCOUNTER 2023-05-26 16:40 | Emergency (ER) | payer MEDICAID, SELFPAY ==
[2023-05-26 16:42] VITALS: BP 99/74; PULSE 96; RESP 22; TEMP 36.6; O2SAT 97; BMI 39.7
--- NOTE | 2023-05-26 17:51 | EKG12_ITS ---
Test Reason : CHEST PAIN Blood Pressure : / mmHG Vent. Rate : 084 BPM Atrial Rate : 084 BPM P-R Int : 172 ms QRS Dur : 126 ms QT Int : 366 ms P-R-T Axes : 048 107 -81 degrees QTc Int : 432 ms Atrial-sensed ventricular-paced rhythm Abnormal ECG Confirmed by DEDE CHICAS, ANNE ([id number]), editor book LONNY HERCULES ([id number]) on 05/27/2023 2:02:33 PM Referred By: LOPEZ Confirmed By:ANNE AGUAYO MD
--- NOTE | 2023-05-26 18:31 | RAD_ITS ---
STUDY: X-RAY CHEST REASON FOR EXAM: Male, 47 years old. chest pain TECHNIQUE: Single AP portable view of the chest. COMPARISON: 08/22/2022 FINDINGS: Left-sided pacemaker in place. The lungs are clear and expanded. There is no demonstrated pleural abnormality. Normal size heart. Normal mediastinum and brent. Normal visualized pulmonary arteries. Normal visualized aortic arch and descending thoracic aorta. There are mild degenerative changes of the visualized thoracic spine. Normal visualized ribs, clavicles, and shoulders. There is no demonstrated abnormality of the visualized soft tissue structures of the upper abdomen. RAD/Chest 1 View (Portable) IMPRESSION: No acute cardiopulmonary disease. Electronically Signed: Nora Torres MD at 19:06 [facility] ,
--- NOTE | 2023-05-26 18:47 | EDS_ITS ---
HPI History of Present Illness Chief Complaint: Shortness of Breath Narrative Narrative: 7-year-old male presenting with cough x 3 weeks. He has minimal shortness of breath. He has not had any fevers but he states he has multiple sick contacts. At times he has chills but he has no body aches. Denies chest pain. He states sometimes he coughs so hard he feel like his head is going explode but he does not have any headache pain now. Patient has history of CHF, diabetes, methamphetamine abuse hyperlipidemia. Patient states he made an appointment for his primary care physician but could not be seen until the and he is tired of waiting. PFSH PFS Medical History Bipolar 1 disorder Cardiomyopathy CHF (congestive heart failure) Diabetes GERD (gastroesophageal reflux disease) HTN (hypertension) LBBB (left bundle branch block) Obesity (BMI 30-39.9) Sleep apnea Smoker Home Medications metformin 1,000 mg tablet 1,000 mg PO BIDCM dm 08/12/20 [History Last Taken 08/24/21] carvedilol 3.125 mg tablet 3.125 mg PO BID #60 tabs 08/15/20 [Rx Last Taken 08/24/21] sacubitril 24 mg-valsartan 26 mg tablet (Entresto) 1 tab PO BID hf 08/25/21 [History Last Taken Unknown] furosemide 40 mg tablet (Lasix) 40 mg PO DAILY #30 tabs 11/15/21 [Rx Last Taken Unknown] atorvastatin 80 mg tablet 80 mg PO QHS 08/22/22 [History Last Taken Unknown] ipratropium 20 mcg-albuterol 100 mcg/actuation mist for inhalation (Combivent Respimat) 2 puff inhalation Q4H PRN Wheezing 08/22/22 [History Last Taken Unknown] prednisone 10 mg tablet 50 mg (5 x 10 mg) PO DAILY #5 tabs 05/26/23 [Rx Last Taken Unknown] Allergy/AdvReac Type Severity Reaction Status Date / Time promethazine [From Phenergan] Allergy Rash Verified 05/26/23 16:40 Penicillins AdvReac Upset Verified 05/26/23 16:40 Stomach Family History Mother CVA (cerebral vascular accident) Surgical History History of left heart catheterization (LHC) (~08/14/20) Social History Smoking Status: Current every day smoker tobacco type: cigarettes ROS ROS ED Constitutional Constitutional ED: Reports chills; Denies fever(s) Eyes Eyes: Denies change in vision or diplopia ENT ENT ED: Denies rhinorrhea or sore throat Cardiovascular Cardiovascular: Denies chest pain or palpitations Respiratory/Chest Respiratory/Chest: Reports cough and dyspnea Gastrointestinal Gastrointestinal: Denies melena or nausea Musculoskeletal Musculoskeletal: Denies back pain, myalgias or neck pain Integumentary Denies abscess or Abrasions Neurologic Neurologic: Reports headache(s); Denies paresthesias or weakness EXAM Physical Exam Const Vital Signs: 05/26/23 16:42 05/26/23 19:10 05/26/23 17:51 Temperature 97.9 F Temperature Source Temporal Pulse Rate 96 85 Respiratory Rate 22 H 18 Respiratory Effort Respiratory Depth Respiratory Pattern Normal Blood Pressure 99/74 Blood Pressure Mean 82 Pulse Ox 97 Oxygen Delivery Method Room Air Room Air 05/26/23 17:51 05/26/23 19:00 05/26/23 19:15 Temperature Temperature Source Pulse Rate 87 Respiratory Rate 20 H 16 Respiratory Effort Normal Non-Labored Respiratory Depth Normal Respiratory Pattern Normal Blood Pressure 100/61 Blood Pressure Mean 74 Pulse Ox 100 Oxygen Delivery Method Room Air Room Air 05/26/23 20:02 05/26/23 20:48 Temperature Temperature Source Pulse Rate 79 Respiratory Rate Respiratory Effort Respiratory Depth Respiratory Pattern Blood Pressure 104/71 115/72 Blood Pressure Mean 82 86 Pulse Ox Oxygen Delivery Method Positive well nourished General Appearance ED: NAD HEENT Reports moist mucous membranes atraumatic Eyes PERRL and EOMs intact bilaterally Resp Resp Narrative: Slightly tachypneic, scattered wheezes Cardio regular rate and regular rhythm Neuro oriented x3 and CN's II-XII intact bilaterally Sensorium / Orientation: alert Motor Exam: strength 5/5 throughout Psych mental status grossly normal Skin no wounds and skin turgor normal MDM MDM MDM Narrative Medical decision making narrative: Patient presenting with cough x 3 weeks. He states has not been able to see his primary care provider. He has not a fever at home. Differential includes gas, CHF, pneumonia, COVID, influenza, dehydration, electrolyte abnormalities, reactive airway disease. Patient does sound wheezy on examination. He is given breathing treatments and Solu-Medrol. CBC to assess white blood cell count, hemoglobin, platelets. BMP to assess renal function, electrolytes. BNP to assess for CHF. Chest x-ray to rule out heart failure versus pneumonia. Given the patient has symptoms for 3 weeks I do not believe there is any testing needed for COVID or influenza. EKG on my interpretation shows atrial sensed ve ntricular paced rhythm at 80 bpm without sign of ischemic change. Chest x-ray my interpretation is no acute process. CBC, BMP unremarkable. High-sensitivity troponin normal at 9. BNP 13.4. Patient requested something for headache and he was given some Reglan has also help with his nausea. At this point feel the patient stable for discharge home. He feels better after breathing treatment so he will be given a burst of prednisone to go with his albuterol inhaler which he has. Return precautions discussed. Impression: 1. Acute bronchitis Lab Data Attestation: I reviewed the patient's lab results. Labs: Laboratory Results - last 24 hr 05/26/23 05/26/23 05/26/23 18:10 18:10 19:11 WBC Cancelled Cancelled Corrected WBC Cancelled Cancelled RBC Cancelled Cancelled Hgb Cancelled Cancelled Hct Cancelled Cancelled MCV Cancelled Cancelled MCH Cancelled Cancelled MCHC Cancelled Cancelled RDW Std Deviation Cancelled Cancelled RDW Coeff of Polly Cancelled Cancelled Plt Count Cancelled Cancelled MPV Cancelled Cancelled Immature Gran % (Auto) Cancelled Cancelled Neut % (Auto) Cancelled Cancelled Lymph % (Auto) Cancelled Cancelled [place] % (Auto) Cancelled Cancelled Eos % (Auto) Cancelled Cancelled Baso % (Auto) Cancelled Cancelled Absolute Neuts (auto) Cancelled Cancelled Absolute Lymphs (auto) Cancelled Cancelled Total Counted Cancelled Cancelled Neutrophils % (Manual) Cancelled Cancelled Band Neutrophils % Cancelled Cancelled Lymphocytes % (Manual) Cancelled Cancelled Monocytes % (Manual) Cancelled Cancelled Eosinophils % (Manual) Cancelled Cancelled Basophils % (Manual) Cancelled Cancelled Metamyelocytes % Cancelled Cancelled Myelocytes % Cancelled Cancelled Promyelocytes % Cancelled Cancelled Blast Cells % Cancelled Cancelled Plasma Cell % (Manual) Cancelled Cancelled Other Cells % Cancelled Cancelled Nucleated RBC % Cancelled Cancelled Nucleated RBCs/100 WBC Cancelled Cancelled Differential Comment Cancelled Cancelled Diff Path Review Cancelled Cancelled Hypersegmented Neuts Cancelled Cancelled Atypical Lymphocytes Cancelled Cancelled Reactive Lymphocytes Cancelled Cancelled Smudge Cells Cancelled Cancelled Toxic Granulation Cancelled Cancelled Toxic Vacuolation Cancelled Cancelled Dohle Bodies Cancelled Cancelled Dionne Rods Cancelled Cancelled Platelet Estimate Cancelled Cancelled Plt Morphology Comment Cancelled Cancelled RBC Morphology Cancelled Cancelled Cancelled Polychromasia Cancelled Hypochromasia Cancelled Poikilocytosis Cancelled Basophilic Stippling Cancelled Anisocytosis Cancelled Microcytosis Cancelled Macrocytosis Cancelled Spherocytes Cancelled Sickle Cells Cancelled Target Cells Cancelled Tear Drop Cells Cancelled Ovalocytes Cancelled Stomatocytes Cancelled [place] Bodies Cancelled [place] Cells Cancelled Bite Cells Cancelled Crenated Cell Cancelled Acanthocytes (Spur) Cancelled Rouleaux Cancelled Schistocytes Cancelled Sodium 137 Potassium 4.6 Chloride 107 Carbon Dioxide 24.0 Anion Gap 6 BUN 18 Creatinine 1.11 Estim Creat Clear Calc 88.57 Est GFR (MDRD) Af Amer 92 Est GFR (MDRD) Non-Af 76 BUN/Creatinine Ratio 16.2 Glucose 123 H Calcium 8.8 Troponin I High Sens 9 B-Natriuretic Peptide Cancelled 05/26/23 05/26/23 19:11 19:31 WBC 8.5 Corrected WBC RBC 5.57 Hgb 15.3 Hct 45.5 MCV 81.7 MCH 27.5 MCHC 33.6 RDW Std Deviation 36.2 RDW Coeff of Polly 12.2 Plt Count 205 MPV 10.6 Immature Gran % (Auto) 0.400 Neut % (Auto) 61.3 Lymph % (Auto) 21.6 [place] % (Auto) 13.7 H Eos % (Auto) 2.5 Baso % (Auto) 0.5 Absolute Neuts (auto) 5.2 Absolute Lymphs (auto) 1.83 Total Counted Neutrophils % (Manual) Band Neutrophils % Lymphocytes % (Manual) Monocytes % (Manual) Eosinophils % (Manual) Basophils % (Manual) Metamyelocytes % Myelocytes % Promyelocytes % Blast Cells % Plasma Cell % (Manual) Other Cells % Nucleated RBC % 0 Nucleated RBCs/100 WBC Differential Comment Diff Path Review Hypersegmented Neuts Atypical Lymphocytes Reactive Lymphocytes Smudge Cells Toxic Granulation Toxic Vacuolation Dohle Bodies Dionne Rods Platelet Estimate Plt Morphology Comment RBC Morphology Cancelled Polychromasia Cancelled Hypochromasia Cancelled Poikilocytosis Cancelled Basophilic Stippling Cancelled Anisocytosis Cancelled Microcytosis Cancelled Macrocytosis Cancelled Spherocytes Cancelled Sickle Cells Cancelled Target Cells Cancelled Tear Drop Cells Cancelled Ovalocytes Cancelled Stomatocytes Cancelled [place] Bodies Cancelled [place] Cells Cancelled Bite Cells Cancelled Crenated Cell Cancelled Acanthocytes (Spur) Cancelled Rouleaux Cancelled Schistocytes Cancelled Sodium Potassium Chloride Carbon Dioxide Anion Gap BUN Creatinine Estim Creat Clear Calc Est GFR (MDRD) Af Amer Est GFR (MDRD) Non-Af BUN/Creatinine Ratio Glucose Calcium Troponin I High Sens B-Natriuretic Peptide Cancelled 13.4 Radiography Diagnostic Testing: Clinical Impression(s) from Imaging Studies Chest X-Ray 05/26/23 18:31 IMPRESSION: No acute cardiopulmonary disease. Electronically Signed: Nora Torres MD at 19:06 EST , Discharge Plan Triage Chief Complaint: Shortness of Breath Other Complaint: Dizziness ED Provider: Cesar Restrepo Dx/Rx/DC Orders Instructions: ED Bronchitis, No Antibiotic (Adult) Prescriptions: New prednisone 10 mg tablet 50 mg PO DAILY Qty: 5 0RF No Action metformin 1,000 MG tablet 1,000 mg PO BIDCM carvedilol 3.125 MG tablet 3.125 mg PO BID Qty: 60 0RF Entresto 24-26 mg Tablet 1 tab PO BID furosemide [Lasix] 40 mg tablet 40 mg PO DAILY Qty: 30 0RF Combivent Respimat 20-100 mcg/actuation mist 2 puff INHALATION Q4H PRN (Reason: Wheezing) Patient Comments: Inhale 1 Puff as instructed four times daily. atorvastatin 80 mg tablet 80 mg PO QHS Primary Care Provider: Leia Live Referrals: Leia Live MD [Primary Care Provider] - Disposition Disposition: Home, Self Care Discharge Date/Time: 05/26/23 20:48
[2023-05-26 18:58] LABS: Anion Gap 6 (5-15); BUN 18 mg/dL (7-18); BUN/Creat Ratio 16.2 RATIO (10-20); Calcium,Total 8.8 mg/dL (8.5-10.1); Chloride 107 mmol/L (98-107); Creatinine, Serum 1.11 mg/dL (0.70-1.30); EST Glomerular Filtration Rate 76 mL/min (>60); Est Glom Filt Rate - Afr Amer 92 mL/min (>60); Estimated Creatinine Clearance 88.57 ml/min; Glucose 123 mg/dL (74-106); Potassium 4.6 mmol/L (3.5-5.1); Sodium Level 137 mmol/L (136-145); Troponin-I HS 9 pg/mL (3.0-78.0)
[2023-05-26 19:00] VITALS: RESP 20
[2023-05-26] MEDS: Ipratropium/Albuterol Sulfate 3 ML AMPUL.NEB INHALATION (19:09)
[2023-05-26] MEDS: Albuterol 2.5 MG/3 ML VIAL.NEB. INHALATION (19:09)
[2023-05-26 19:10] VITALS: PULSE 85; RESP 18
[2023-05-26] MEDS: MethylPREDNISolone 125 MG/2 ML Vial IV (19:14)
[2023-05-26 19:15] VITALS: BP 100/61; PULSE 87; RESP 16; O2SAT 100
[2023-05-26 19:47] LABS: Absolute Lymphocyte Count 1.83 X10^3/uL (0.83-4.51); Absolute Neutrophil Count 5.2 X10^3/uL (2.0-7.7); Basophil# 0.04 X10^3/uL; Basophil% 0.5 % (0-1); Eosinophil# 0.21 X10^3/uL; Eosinophils% 2.5 % (0-5); Hematocrit 45.5 % (40-54); Hemoglobin 15.3 g/dL (13.0-16.5); Lymphocyte # 1.83 X10^3/ul (0.83-4.51); Lymphocyte % 21.6 % (19-41); Mean Corp Hgb Conc 33.6 g/dL (32-36); Mean Corpuscular Hgb 27.5 pg (27.0-32.0); Mean Corpuscular Volume 81.7 fL (80-94); Mean Platelet Vol. 10.6 fl (6.2-12.0); Monocyte# 1.16 X10^3/uL; Monocyte% 13.7 % (0-10); NRBC Flagged by Analyzer 0 % (0-5); Neutrophil # 5.22 X10^3/uL (2.7-7.7); Neutrophil % 61.3 % (47-70); POSITIVE COUNT YES; Platelet Count 205 K/mm3 (150-450); RBC Distribution Width CV 12.2 % (11.6-14.6); RBC Distribution Width SD 36.2 fl (35.1-43.9); Red Blood Count 5.57 M/mm3 (4.6-6.2); White Blood Count 8.5 K/mm3 (4.4-11.0)
[2023-05-26 20:01] LABS: BNP,B-Type NATRIURETIC PEPTIDE 13.4 pg/mL (0-100)
[2023-05-26 20:02] VITALS: BP 104/71; PULSE 79
[2023-05-26] MEDS: Metoclopramide 10 MG/2 ML Vial IV (20:14)
[2023-05-26 20:48] VITALS: BP 115/72
== END 2023-05-26 20:48 | disposition home or self-care (01) ==
PROVIDERS: Emergency Provider Student in an Organized Health Care Education/Training Program; PCP Internal Medicine; Visit Provider Student in an Organized Health Care Education/Training Program
DX: J20.9 Acute bronchitis, unspecified (principal); I11.0 Hypertensive heart disease with heart failure; I50.9 Heart failure, unspecified; E11.9 Type 2 diabetes mellitus without complications; E66.9 Obesity, unspecified; F17.210 Nicotine dependence, cigarettes, uncomplicated; Z68.39 Body mass index [BMI] 39.0-39.9, adult; Z79.84 Long term (current) use of oral hypoglycemic drugs; Z79.899 Other long term (current) drug therapy
CPT/HCPCS: 71045; 80048; 83880; 84484; 85025; 93005; 94640; 96374; 96375; 99283; A4216